=== PATIENT | male | born 1990 | race Caucasian/White ===

== ENCOUNTER 2018-06-16 06:30 | Observation (INO) | payer MEDICAID, OTHER ==
[~2018-06-16] VITALS: Ht 165.1 cm; Wt 81.1 kg
--- NOTE | 2018-06-16 06:46 | NUR ---
FIRST CONTACT WITH PT: Pt ambulates to room from triage with steady gait and balance. NADN. Pt states, "I just got out of halfway and started drinking hard the last two days. I have pain here (points to epigastric area). I have been drinking water and eating. I ate some burritos and it started feeling worse." Pt changing into gown at this time.
[2018-06-16] MEDS ORDERED: MAALOX/HYOSCYAMINE/LIDOCAINE 45 ML BTL PO ONE (07:00)
[2018-06-16] MEDS ORDERED: FAMOTIDINE 20 MG/2 ML IVP ONE (07:00)
[2018-06-16] MEDS ORDERED: PROMETHAZINE 25 MG/ML, 1ML IM ONE (07:00)
[2018-06-16] MEDS ORDERED: LORazepam 2 MG/ML, 1ML IVPush ONE (07:00)
[2018-06-16] MEDS ORDERED: SODIUM CHLORIDE FLUSH 10ML SYR IVF ONE (07:00)
[2018-06-16] MEDS ORDERED: ONDANSETRON 2MG/ML, 2ML IVPush ONE (07:00)
--- NOTE | 2018-06-16 07:09 | NUR ---
Pt transported on gurney to imaging.
[2018-06-16 07:13] LABS: BASOPHILS # (AUTO) 0.05 x10^3/uL (0-0.1); BASOPHILS % (AUTO) 1 % (0-1); EOSINOPHILS # (AUTO) 0.17 x10^3/uL (0-0.4); EOSINOPHILS % (AUTO) 2 % (1-7); LYMPHOCYTES % (AUTO) 35 % (22-44); MD NO; MEAN CORPUSCULAR HEMOGLOBIN 30.7 pg (27.5-34.5); MEAN CORPUSCULAR HGB CONC 33.6 g/dL (33.2-36.2); MEAN CORPUSCULAR VOLUME 91.3 fL (81-97); MEAN PLATELET VOLUME 7.8 fL (7.4-10.4); MONOCYTES # (AUTO) 0.83 x10^3/uL (0.2-0.8); MONOCYTES % (AUTO) 8 % (2-9); NEUTROPHILS # (AUTO) 5.42 x10^3/uL (1.8-6.8); NEUTROPHILS % (AUTO) 54 % (42-75); PLATELET COUNT 412 x10^3/uL (130-400); RED BLOOD COUNT 5.14 x10^6/uL (4.38-5.82); RED CELL DISTRIBUTION WIDTH 13.1 % (9.4-14.8)
[2018-06-16 07:21] LABS: ALANINE AMINOTRANSFERASE 41 U/L (12-78); ALBUMIN 3.9 g/dL (3.4-5.0); ANION GAP 11 mmol/L (5-15); CALCIUM 9.1 mg/dL (8.5-10.1); CHLORIDE 108 mmol/L (98-107)
[2018-06-16 07:24] LABS: ALKALINE PHOSPHATASE 104 U/L (45-117); BILIRUBIN,TOTAL 0.3 mg/dL (0.2-1.0); TOTAL PROTEIN 7.9 g/dL (6.4-8.2)
[2018-06-16] MEDS ORDERED: ONDANSETRON 2MG/ML, 2ML ONE (07:34)
[2018-06-16] MEDS ORDERED: MORPHINE SULFATE 4 MG/ML, 1ML ONE ×2 (07:34→12:32)
[2018-06-16] MEDS ORDERED: PROMETHAZINE 25 MG/ML, 1ML ONE (07:34)
[2018-06-16] MEDS ORDERED: MAALOX/HYOSCYAMINE/LIDOCAINE 45 ML BTL ONE (07:34)
[2018-06-16] MEDS ORDERED: LORazepam 2 MG/ML, 1ML ONE (07:35)
[2018-06-16] MEDS ORDERED: FAMOTIDINE 20 MG/2 ML ONE (07:35)
[2018-06-16] MEDS: MORPHINE SULFATE 4 MG/ML, 1ML IVPush PRN ×4 (07:46→22:06)
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
--- NOTE | 2018-06-16 08:37 | NUR ---
JUAN JOSE CALLED FOR ASSESSMENT, PACKET FAXED
--- NOTE | 2018-06-16 08:54 | NUR ---
LABOR OPERATOR CALLED AND SITTER REQUESTED FOR PATIENT SAFETY.
[2018-06-16 09:01] LABS: SALICYLATE LEVEL < 1.7 mg/dL (2.8-20.0)
[2018-06-16 09:02] LABS: ACETAMINOPHEN < 2 mcg/mL (10-30)
--- NOTE | 2018-06-16 09:07 | NUR ---
SULMA FROM [facility] CALLED, WILL BE HERE NO LATER THAN 1100 AFTER [facility] CONSULTS
--- NOTE | 2018-06-16 10:18 | NUR ---
LATE NOTE ENTRY FOR 0900: Provided pt urinal for UA pt aware of need of urine.
--- NOTE | 2018-06-16 11:00 | NUR ---
Yaneth from [facility] spoke to ED RN And ED MD about plan of care.
--- NOTE | 2018-06-16 11:12 | NUR ---
SULMA ASSESSED PATIENT, WORKING WITH [facility] TO HAVE PATIENT TRANSFERRED TO [facility] WITHIN THE NEXT COUPLE OF HOURS
--- NOTE | 2018-06-16 12:49 | NUR ---
LUNCH RN: PT COMPLETELY UNDRESSED, BLANKET PROVIDED FOR COMFORT, 3 BAGS OF BELONGINGS TO LOCKER ALL LABLED APPROPRAITELY. PT FINISHED DIET TRAY COMPLETELY. PT REPORTING 6/10 PAIN, SECOND DOSE MORPHINE GIVEN. URINE SAMPLE COLLECTED AND WALKED TO LAB FOR DOA. PT CALM AND COOPERATIVE AT THIS TIME. SITTER AT BEDSIDE FOR CONTINOUS MONITORING.
[2018-06-16 13:02] LABS: AMPHETAMINE SCREEN, URINE Negative (Negative); BARBITURATE SCREEN, URINE Negative (Negative); BENZODIAZEPINE SCREEN, URINE Negative (Negative); CANNABINOID SCREEN, URINE Negative (Negative); COCAINE SCREEN, URINE Negative (Negative); METHADONE SCREEN, URINE Negative (Negative); OPIATE SCREEN, URINE Positive (Negative)
--- NOTE | 2018-06-16 13:10 | NUR ---
ASSUMED CARE. PT REMAINS IN ROOM. EQUAL CHEST RISE AND GOOD CAP REFILL. PT TO MOVE TO SAFETY ROOM AT THIS TIME.
--- NOTE | 2018-06-16 13:28 | NUR ---
LPT MOVED TO ROOM 40. ROOM SECURED. SITTER IN PLACE. ASSUMING CARE OF PT AT THIS TIME. NADN. RESP EVEN AND UNLABORED. POC DISCUSSED WITH PT.
[2018-06-16] MEDS ORDERED: POLYETHYLENE GLYCOL 17 GM PACKET PO PRN (13:30)
[2018-06-16] MEDS ORDERED: LABETALOL 5MG/ML, 20ML IVPush PRN (13:30)
[2018-06-16] MEDS ORDERED: ONDANSETRON 2MG/ML, 2ML IVPush PRN (13:30)
[2018-06-16] MEDS ORDERED: ONDANSETRON ODT 4 MG PO PRN (13:30)
[2018-06-16 13:55] LABS: FREE T4 (FREE THYROXINE) 0.92 ng/dL (0.76-1.46)
[2018-06-16] MEDS ORDERED: PANTOPRAZOLE 40 MG IV ONE (14:58)
[2018-06-16] MEDS ORDERED: THIAMINE 100MG TABLET ONE (14:58)
[2018-06-16] MEDS: PANTOPRAZOLE 40 MG IV IVPush SCH ×2 (15:00→20:31)
[2018-06-16] MEDS: THIAMINE 100MG TABLET PO SCH (15:00)
[2018-06-16] MEDS: ENOXAPARIN 40 MG/0.4 ML SQ SCH (15:00)
--- NOTE | 2018-06-16 15:13 | NUR ---
REPORT TO SURI LOVE.
[2018-06-16 15:30] VITALS: BP 127/81
[2018-06-16] MEDS ORDERED: LISI-170 PO (15:43)
[2018-06-16] MEDS: SODIUM CHLORIDE 0.9% 1,000 ML IV SCH ×2 (15:54→22:07)
[2018-06-16] MEDS: FOLIC ACID 1 MG TABLET PO SCH (15:54)
[2018-06-16] MEDS ORDERED: POTASSIUM CHLORIDE 20 MEQ TAB.ER.PRT PO ONE (17:00)
[2018-06-16 20:00] VITALS: BP 145/80
[2018-06-16] MEDS: HYDROcodone/APAP 5/325 TABLET PO PRN (20:30)
[2018-06-17 02:00] VITALS: BP 121/77
[2018-06-17] MEDS: MORPHINE SULFATE 4 MG/ML, 1ML IVPush PRN ×2 (02:01→06:17)
[2018-06-17] MEDS: HYDROcodone/APAP 5/325 TABLET PO PRN ×2 (04:36→13:07)
[2018-06-17 04:57] LABS: BASOPHILS # (AUTO) 0.06 x10^3/uL (0-0.1); BASOPHILS % (AUTO) 1 % (0-1); EOSINOPHILS % (AUTO) 2 % (1-7); LYMPHOCYTES # (AUTO) 3.66 x10^3/uL (1-3.4); LYMPHOCYTES % (AUTO) 43 % (22-44); MD NO; MEAN CORPUSCULAR HEMOGLOBIN 31.4 pg (27.5-34.5); MEAN CORPUSCULAR HGB CONC 34.3 g/dL (33.2-36.2); MEAN CORPUSCULAR VOLUME 91.7 fL (81-97); MEAN PLATELET VOLUME 7.9 fL (7.4-10.4); MONOCYTES # (AUTO) 0.85 x10^3/uL (0.2-0.8); MONOCYTES % (AUTO) 10 % (2-9); NEUTROPHILS # (AUTO) 3.71 x10^3/uL (1.8-6.8); NEUTROPHILS % (AUTO) 44 % (42-75); PLATELET COUNT 315 x10^3/uL (130-400); RED BLOOD COUNT 4.32 x10^6/uL (4.38-5.82); RED CELL DISTRIBUTION WIDTH 13.1 % (9.4-14.8)
[2018-06-17 05:00] LABS: CHLORIDE 110 mmol/L (98-107)
[2018-06-17 05:16] LABS: ALANINE AMINOTRANSFERASE 31 U/L (12-78); ALBUMIN 3.1 g/dL (3.4-5.0); ALKALINE PHOSPHATASE 96 U/L (45-117); ANION GAP 6 mmol/L (5-15); BILIRUBIN,TOTAL 0.9 mg/dL (0.2-1.0); CALCIUM 8.3 mg/dL (8.5-10.1); TOTAL PROTEIN 6.5 g/dL (6.4-8.2)
[2018-06-17] MEDS: FOLIC ACID 1 MG TABLET PO SCH (07:37)
[2018-06-17] MEDS: THIAMINE 100MG TABLET PO SCH (07:37)
[2018-06-17] MEDS: PANTOPRAZOLE 40 MG IV IVPush SCH ×2 (07:37→20:38)
[2018-06-17] MEDS: SENNA/DOCUSATE TABLET PO SCH (07:38)
[2018-06-17] MEDS: SODIUM CHLORIDE 0.9% 1,000 ML IV SCH ×2 (07:42→15:48)
[2018-06-17 08:24] VITALS: BP 111/75
[2018-06-17] MEDS ORDERED: LORazepam 0.5MG TABLET PO PRN (08:30)
[2018-06-17] MEDS ORDERED: LORazepam 1MG TABLET PO PRN ×3 (08:30)
[2018-06-17] MEDS ORDERED: MAALOX/HYOSCYAMINE/LIDOCAINE 45 ML BTL PO ONE (09:30)
[2018-06-17] MEDS: SUCRALFATE 1 GM/10 ML UDC PO SCH ×3 (10:52→20:38)
[2018-06-17 13:24] VITALS: BP 125/77
[2018-06-17] MEDS: ENOXAPARIN 40 MG/0.4 ML SQ SCH (15:47)
[2018-06-17 20:00] VITALS: BP 121/80
[2018-06-17] MEDS: LORazepam 1MG TABLET PO PRN (20:38)
[2018-06-17 23:00] VITALS: BP 109/65
[2018-06-18] MEDS: SODIUM CHLORIDE 0.9% 1,000 ML IV SCH ×2 (00:38→08:11)
[2018-06-18 02:00] VITALS: BP 121/77
[2018-06-18 04:48] LABS: BASOPHILS # (AUTO) 0.06 x10^3/uL (0-0.1); BASOPHILS % (AUTO) 1 % (0-1); EOSINOPHILS # (AUTO) 0.24 x10^3/uL (0-0.4); EOSINOPHILS % (AUTO) 3 % (1-7); LYMPHOCYTES # (AUTO) 2.86 x10^3/uL (1-3.4); LYMPHOCYTES % (AUTO) 39 % (22-44); MD NO; MEAN CORPUSCULAR HEMOGLOBIN 31.2 pg (27.5-34.5); MEAN CORPUSCULAR HGB CONC 33.7 g/dL (33.2-36.2); MEAN CORPUSCULAR VOLUME 92.4 fL (81-97); MEAN PLATELET VOLUME 8.1 fL (7.4-10.4); MONOCYTES # (AUTO) 0.71 x10^3/uL (0.2-0.8); MONOCYTES % (AUTO) 10 % (2-9); NEUTROPHILS # (AUTO) 3.45 x10^3/uL (1.8-6.8); NEUTROPHILS % (AUTO) 47 % (42-75); PLATELET COUNT 315 x10^3/uL (130-400); RED BLOOD COUNT 4.57 x10^6/uL (4.38-5.82); RED CELL DISTRIBUTION WIDTH 12.7 % (9.4-14.8)
[2018-06-18 04:49] LABS: ALBUMIN 3.2 g/dL (3.4-5.0); ANION GAP 7 mmol/L (5-15); CALCIUM 8.9 mg/dL (8.5-10.1); CHLORIDE 106 mmol/L (98-107)
[2018-06-18 06:30] VITALS: BP 129/82
[2018-06-18] MEDS: SUCRALFATE 1 GM/10 ML UDC PO SCH ×4 (08:10→20:09)
[2018-06-18] MEDS: FOLIC ACID 1 MG TABLET PO SCH (08:11)
[2018-06-18] MEDS: SENNA/DOCUSATE TABLET PO SCH (08:11)
[2018-06-18] MEDS: THIAMINE 100MG TABLET PO SCH (08:11)
[2018-06-18] MEDS: PANTOPRAZOLE 40 MG IV IVPush SCH (08:11)
[2018-06-18] MEDS: HYDROcodone/APAP 5/325 TABLET PO PRN (08:25)
[2018-06-18 12:04] VITALS: BP 128/82
[2018-06-18] MEDS: ENOXAPARIN 40 MG/0.4 ML SQ SCH (15:00)
[2018-06-18 19:25] VITALS: BP 138/89
[2018-06-18] MEDS: PANTOPRAZOLE 20MG TABLET PO SCH (20:09)
[2018-06-18] MEDS: LORazepam 1MG TABLET PO PRN (23:47)
[2018-06-19 07:55] VITALS: BP 127/86
[2018-06-19] MEDS: SUCRALFATE 1 GM/10 ML UDC PO SCH ×4 (08:08→20:08)
[2018-06-19] MEDS: SENNA/DOCUSATE TABLET PO SCH (08:09)
[2018-06-19] MEDS: THIAMINE 100MG TABLET PO SCH (08:09)
[2018-06-19] MEDS: PANTOPRAZOLE 20MG TABLET PO SCH ×2 (08:09→20:08)
[2018-06-19] MEDS: FOLIC ACID 1 MG TABLET PO SCH (08:09)
[2018-06-19] MEDS: ENOXAPARIN 40 MG/0.4 ML SQ SCH (15:00)
[2018-06-19 19:05] VITALS: BP 105/71
[2018-06-20] MEDS: LORazepam 1MG TABLET PO PRN ×2 (00:13→20:20)
[2018-06-20] MEDS: SUCRALFATE 1 GM/10 ML UDC PO SCH ×4 (07:49→20:20)
[2018-06-20] MEDS: PANTOPRAZOLE 20MG TABLET PO SCH ×2 (07:49→20:20)
[2018-06-20 08:00] VITALS: BP 123/84
[2018-06-20] MEDS: THIAMINE 100MG TABLET PO SCH (08:27)
[2018-06-20] MEDS: SENNA/DOCUSATE TABLET PO SCH (08:27)
[2018-06-20] MEDS: FOLIC ACID 1 MG TABLET PO SCH (08:27)
[2018-06-20] MEDS: ENOXAPARIN 40 MG/0.4 ML SQ SCH (15:00)
[2018-06-20 19:16] VITALS: BP 109/70
[2018-06-21] MEDS: PANTOPRAZOLE 20MG TABLET PO SCH ×2 (06:23→21:00)
[2018-06-21 07:00] VITALS: BP 120/72
[2018-06-21] MEDS: THIAMINE 100MG TABLET PO SCH (07:46)
[2018-06-21] MEDS: FOLIC ACID 1 MG TABLET PO SCH (07:46)
[2018-06-21] MEDS: SUCRALFATE 1 GM/10 ML UDC PO SCH ×4 (07:46→20:18)
[2018-06-21] MEDS: SENNA/DOCUSATE TABLET PO SCH (07:51)
[2018-06-21] MEDS ORDERED: TRAZODONE 50MG TABLET ONE (10:40)
[2018-06-21] MEDS ORDERED: TRAZODONE 50MG TABLET PO ONE (11:00)
[2018-06-21] MEDS: ENOXAPARIN 40 MG/0.4 ML SQ SCH (15:29)
[2018-06-21 19:25] VITALS: BP 128/85
[2018-06-22] MEDS: LORazepam 1MG TABLET PO PRN (05:36)
[2018-06-22] MEDS: PANTOPRAZOLE 20MG TABLET PO SCH ×2 (05:36→21:16)
[2018-06-22 07:20] VITALS: BP 126/84
[2018-06-22] MEDS: SUCRALFATE 1 GM/10 ML UDC PO SCH ×4 (07:37→21:16)
[2018-06-22] MEDS: FOLIC ACID 1 MG TABLET PO SCH (07:39)
[2018-06-22] MEDS: THIAMINE 100MG TABLET PO SCH (07:40)
[2018-06-22] MEDS: SENNA/DOCUSATE TABLET PO SCH (07:40)
[2018-06-22] MEDS: ENOXAPARIN 40 MG/0.4 ML SQ SCH (15:00)
[2018-06-22] MEDS: TRAZODONE 100MG TABLET PO PRN (21:16)
[2018-06-22 21:54] VITALS: BP 124/85
[2018-06-23] MEDS: PANTOPRAZOLE 20MG TABLET PO SCH ×2 (05:29→21:21)
[2018-06-23] MEDS: FOLIC ACID 1 MG TABLET PO SCH (07:58)
[2018-06-23] MEDS: SUCRALFATE 1 GM/10 ML UDC PO SCH ×4 (07:58→21:20)
[2018-06-23] MEDS: THIAMINE 100MG TABLET PO SCH (07:59)
[2018-06-23] MEDS: SENNA/DOCUSATE TABLET PO SCH (07:59)
[2018-06-23] MEDS: SERTRALINE 50MG TABLET PO SCH (07:59)
[2018-06-23 08:00] VITALS: BP 119/76
[2018-06-23] MEDS: ENOXAPARIN 40 MG/0.4 ML SQ SCH (16:57)
[2018-06-23 19:38] VITALS: BP 126/83
[2018-06-24] MEDS: PANTOPRAZOLE 20MG TABLET PO SCH ×2 (05:52→20:24)
[2018-06-24] MEDS: SUCRALFATE 1 GM/10 ML UDC PO SCH ×4 (06:09→20:24)
[2018-06-24 07:35] VITALS: BP 130/88
[2018-06-24] MEDS: FOLIC ACID 1 MG TABLET PO SCH (08:09)
[2018-06-24] MEDS: SENNA/DOCUSATE TABLET PO SCH (08:09)
[2018-06-24] MEDS: THIAMINE 100MG TABLET PO SCH (08:09)
[2018-06-24] MEDS: SERTRALINE 50MG TABLET PO SCH (08:09)
[2018-06-24] MEDS: ENOXAPARIN 40 MG/0.4 ML SQ SCH (15:00)
[2018-06-24 19:26] VITALS: BP 136/87
[2018-06-25] MEDS: SUCRALFATE 1 GM/10 ML UDC PO SCH ×4 (07:43→20:13)
[2018-06-25] MEDS: FOLIC ACID 1 MG TABLET PO SCH (07:52)
[2018-06-25] MEDS: SERTRALINE 50MG TABLET PO SCH (07:52)
[2018-06-25] MEDS: PANTOPRAZOLE 20MG TABLET PO SCH ×2 (07:52→20:13)
[2018-06-25] MEDS: THIAMINE 100MG TABLET PO SCH (07:53)
[2018-06-25 08:00] VITALS: BP 124/86
[2018-06-25] MEDS: SENNA/DOCUSATE TABLET PO SCH (09:00)
[2018-06-25] MEDS: ENOXAPARIN 40 MG/0.4 ML SQ SCH (15:00)
[2018-06-25 20:00] VITALS: BP 135/89
[2018-06-25] MEDS: TRAZODONE 100MG TABLET PO PRN (22:34)
[2018-06-26] MEDS: PANTOPRAZOLE 20MG TABLET PO SCH ×2 (06:00→22:04)
[2018-06-26] MEDS: SUCRALFATE 1 GM/10 ML UDC PO SCH ×4 (07:00→22:03)
[2018-06-26 07:51] VITALS: BP 125/80
[2018-06-26] MEDS: THIAMINE 100MG TABLET PO SCH (08:17)
[2018-06-26] MEDS: FOLIC ACID 1 MG TABLET PO SCH (08:17)
[2018-06-26] MEDS: SERTRALINE 50MG TABLET PO SCH (08:18)
[2018-06-26] MEDS: SENNA/DOCUSATE TABLET PO SCH ×2 (08:19→08:24)
[2018-06-26] MEDS: ENOXAPARIN 40 MG/0.4 ML SQ SCH (14:33)
[2018-06-26 19:22] VITALS: BP 124/72
[2018-06-26] MEDS: TRAZODONE 100MG TABLET PO PRN (22:03)
[2018-06-26] MEDS: PRAZOSIN 1 MG CAPSULE PO SCH (22:03)
[2018-06-27] MEDS: PANTOPRAZOLE 20MG TABLET PO SCH ×2 (07:32→22:00)
[2018-06-27] MEDS: SUCRALFATE 1 GM/10 ML UDC PO SCH ×4 (07:32→22:00)
[2018-06-27 08:00] VITALS: BP 126/76
[2018-06-27] MEDS: SERTRALINE 50MG TABLET PO SCH (08:15)
[2018-06-27] MEDS: THIAMINE 100MG TABLET PO SCH (08:15)
[2018-06-27] MEDS: FOLIC ACID 1 MG TABLET PO SCH (08:16)
[2018-06-27] MEDS: SENNA/DOCUSATE TABLET PO SCH (08:49)
[2018-06-27] MEDS: ENOXAPARIN 40 MG/0.4 ML SQ SCH (15:00)
[2018-06-27 19:36] VITALS: BP 127/77
[2018-06-27] MEDS: PRAZOSIN 1 MG CAPSULE PO SCH (22:00)
[2018-06-27] MEDS: TRAZODONE 100MG TABLET PO PRN (22:00)
[2018-06-28] MEDS: THIAMINE 100MG TABLET PO SCH (07:54)
[2018-06-28] MEDS: SERTRALINE 50MG TABLET PO SCH (07:54)
[2018-06-28] MEDS: PANTOPRAZOLE 20MG TABLET PO SCH ×2 (07:54→21:31)
[2018-06-28] MEDS: FOLIC ACID 1 MG TABLET PO SCH (07:54)
[2018-06-28] MEDS: SUCRALFATE 1 GM/10 ML UDC PO SCH ×4 (07:54→21:31)
[2018-06-28] MEDS: SENNA/DOCUSATE TABLET PO SCH (07:55)
[2018-06-28 08:27] VITALS: BP 124/82
[2018-06-28] MEDS ORDERED: ORAJEL 7GM TUBE MM PRN (10:30)
[2018-06-28] MEDS: ACETAMINOPHEN 325 MG TABLET PO PRN (11:18)
[2018-06-28] MEDS: ENOXAPARIN 40 MG/0.4 ML SQ SCH (15:00)
[2018-06-28 19:55] VITALS: BP 112/54
[2018-06-28] MEDS: PRAZOSIN 1 MG CAPSULE PO SCH (21:31)
[2018-06-29] MEDS: TRAZODONE 100MG TABLET PO PRN (02:21)
[2018-06-29] MEDS: SERTRALINE 50MG TABLET PO SCH (07:24)
[2018-06-29] MEDS: FOLIC ACID 1 MG TABLET PO SCH (07:24)
[2018-06-29] MEDS: PANTOPRAZOLE 20MG TABLET PO SCH ×2 (07:24→21:15)
[2018-06-29] MEDS: SENNA/DOCUSATE TABLET PO SCH (07:24)
[2018-06-29] MEDS: THIAMINE 100MG TABLET PO SCH (07:24)
[2018-06-29] MEDS: SUCRALFATE 1 GM/10 ML UDC PO SCH ×4 (07:24→21:15)
[2018-06-29 07:56] VITALS: BP 138/91
[2018-06-29] MEDS: ENOXAPARIN 40 MG/0.4 ML SQ SCH (15:00)
[2018-06-29 21:08] VITALS: BP 123/84
[2018-06-29] MEDS: PRAZOSIN 1 MG CAPSULE PO SCH (21:15)
[2018-06-30 07:48] VITALS: BP 142/95
[2018-06-30] MEDS: SUCRALFATE 1 GM/10 ML UDC PO SCH ×4 (07:57→21:53)
[2018-06-30] MEDS: THIAMINE 100MG TABLET PO SCH (07:57)
[2018-06-30] MEDS: SERTRALINE 50MG TABLET PO SCH (07:57)
[2018-06-30] MEDS: PANTOPRAZOLE 20MG TABLET PO SCH ×2 (07:57→21:51)
[2018-06-30] MEDS: FOLIC ACID 1 MG TABLET PO SCH (07:57)
[2018-06-30] MEDS: SENNA/DOCUSATE TABLET PO SCH (08:06)
[2018-06-30] MEDS: ENOXAPARIN 40 MG/0.4 ML SQ SCH (15:21)
[2018-06-30 19:45] VITALS: BP 133/82
[2018-06-30] MEDS: PRAZOSIN 1 MG CAPSULE PO SCH (21:52)
[2018-06-30] MEDS: LORazepam 1MG TABLET PO PRN (23:22)
[2018-07-01] MEDS: PANTOPRAZOLE 20MG TABLET PO SCH ×2 (07:30→20:52)
[2018-07-01] MEDS: SUCRALFATE 1 GM/10 ML UDC PO SCH ×4 (07:36→20:51)
[2018-07-01 07:59] VITALS: BP 129/87
[2018-07-01] MEDS: THIAMINE 100MG TABLET PO SCH (08:16)
[2018-07-01] MEDS: FOLIC ACID 1 MG TABLET PO SCH (08:16)
[2018-07-01] MEDS: SERTRALINE 50MG TABLET PO SCH (08:17)
[2018-07-01] MEDS: SENNA/DOCUSATE TABLET PO SCH (08:17)
[2018-07-01] MEDS: ENOXAPARIN 40 MG/0.4 ML SQ SCH (15:35)
[2018-07-01 19:38] VITALS: BP 130/83
[2018-07-01] MEDS: PRAZOSIN 1 MG CAPSULE PO SCH (20:51)
[2018-07-01] MEDS: ACETAMINOPHEN 325 MG TABLET PO PRN (23:50)
[2018-07-02] MEDS: PANTOPRAZOLE 20MG TABLET PO SCH ×2 (06:00→21:00)
[2018-07-02] MEDS: SUCRALFATE 1 GM/10 ML UDC PO SCH ×4 (07:19→20:24)
[2018-07-02 07:36] VITALS: BP 131/89
[2018-07-02] MEDS: THIAMINE 100MG TABLET PO SCH (08:31)
[2018-07-02] MEDS: FOLIC ACID 1 MG TABLET PO SCH (08:31)
[2018-07-02] MEDS: SERTRALINE 50MG TABLET PO SCH (08:31)
[2018-07-02] MEDS: SENNA/DOCUSATE TABLET PO SCH (08:31)
[2018-07-02] MEDS: ENOXAPARIN 40 MG/0.4 ML SQ SCH (15:00)
[2018-07-02 19:47] VITALS: BP 129/89
[2018-07-02] MEDS: PRAZOSIN 1 MG CAPSULE PO SCH (20:24)
[2018-07-02] MEDS: TRAZODONE 100MG TABLET PO PRN (20:24)
[2018-07-03] MEDS: SUCRALFATE 1 GM/10 ML UDC PO SCH ×2 (07:16→11:19)
[2018-07-03] MEDS: PANTOPRAZOLE 20MG TABLET PO SCH (07:17)
[2018-07-03 07:22] VITALS: BP 119/79
[2018-07-03] MEDS: FOLIC ACID 1 MG TABLET PO SCH (07:49)
[2018-07-03] MEDS: SERTRALINE 50MG TABLET PO SCH (07:49)
[2018-07-03] MEDS: THIAMINE 100MG TABLET PO SCH (07:49)
[2018-07-03] MEDS: SENNA/DOCUSATE TABLET PO SCH (09:00)
== END 2018-07-03 12:20 ==
LOC: ED 08:24 → EDIP 12:07 → 3NW 15:30 → 2N 06-18 13:18
PROVIDERS: ADMIT Internal Medicine; ATTEND Internal Medicine
DX: R10.13 Epigastric pain (principal); R11.2 Nausea with vomiting, unspecified; I10 Essential (primary) hypertension; R45.851 Suicidal ideations; F10.239 Alcohol dependence with withdrawal, unspecified; F11.20 Opioid dependence, uncomplicated; F32.9 Major depressive disorder, single episode, unspecified; K02.9 Dental caries, unspecified; K29.00 Acute gastritis without bleeding; Y90.2 Blood alcohol level of 40-59 mg/100 ml
CPT/HCPCS: 36415; 74022; 80048; 80053; 80307; 80329; 82040; 83690; 83735; 84100; 84439; 84443; 85025; 93005; 96361; 96372; 96374; 96375; 96376; 99284; C9113; G0378; J1650; J2060; J2405; J2550; J3490; J7030; G0480

== ENCOUNTER 2018-09-21 15:55 | Emergency (ER) | payer MEDICAID ==
[~2018-09-21] VITALS: Ht 165.1 cm; Wt 89.0 kg
[~2018-09-21 15:55] MED LIST: ARIP30TA4 PO; GABA300C10 PO; HYDR50TA13 PO; LISI-170 PO; OLAN10TA9 PO; PRAZ2CAP2 PO; SERT50TA28 PO; TRAZ50TA66 PO
--- NOTE | 2018-09-21 16:04 | NUR ---
28 Y/O MALE BIB AMBULANCE WITH C/O CP, UPPER LEFT QUAD PAIN. PER PT "I WAS HERE BEFORE AND THEY TOLD ME IT WAS GALL BLADDER ISSUES OF SOME SORT. THEY ALSO SAID IF THE PAIN GETS WORSE TO COME BACK. SO I DID. I KNOW MY HISTORY ISN'T THE BEST WITH MY DRINKING, BUT I'VE BEEN SOBER FOR 3 MONTHS NOW. IT JUST HURTS." PT IN MILD DISTRESS. 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 NO C/O TRAUMA, V/D, SYNCOPE, SOB.
--- NOTE | 2018-09-21 16:29 | NUR ---
PT BACK FROM IMAGING. US BEDSIDE.
[2018-09-21] MEDS ORDERED: KETOROLAC 30 MG/1 ML IM ONE (16:30)
[2018-09-21] MEDS ORDERED: KETOROLAC 30 MG/1 ML ONE (16:55)
--- NOTE | 2018-09-21 17:02 | NUR ---
PT RESTING ON GURNEY. NO ACUTE DISTRESS NOTED. NO NEEDS REQUESTED AT THIS TIME.
[2018-09-21 17:08] LABS: BASOPHILS # (AUTO) 0.06 x10^3/uL (0-0.1); BASOPHILS % (AUTO) 0 % (0-1); EOSINOPHILS # (AUTO) 0.12 x10^3/uL (0-0.4); EOSINOPHILS % (AUTO) 1 % (1-7); LYMPHOCYTES # (AUTO) 2.62 x10^3/uL (1-3.4); LYMPHOCYTES % (AUTO) 18 % (22-44); MD NO; MEAN CORPUSCULAR HEMOGLOBIN 30.4 pg (27.5-34.5); MEAN CORPUSCULAR HGB CONC 33.9 g/dL (33.2-36.2); MEAN CORPUSCULAR VOLUME 89.6 fL (81-97); MEAN PLATELET VOLUME 7.4 fL (7.4-10.4); MONOCYTES # (AUTO) 0.97 x10^3/uL (0.2-0.8); MONOCYTES % (AUTO) 7 % (2-9); NEUTROPHILS # (AUTO) 10.75 x10^3/uL (1.8-6.8); NEUTROPHILS % (AUTO) 74 % (42-75); PLATELET COUNT 343 x10^3/uL (130-400)
[2018-09-21 17:16] LABS: INTERNATIONAL NORMALIZED RATIO 1.04 (0.93-1.1); PROTHROMBIN TIME 10.9 Seconds (9.6-11.5)
[2018-09-21 17:18] LABS: ALANINE AMINOTRANSFERASE 56 U/L (12-78); ANION GAP 8 mmol/L (5-15); CALCIUM 9.5 mg/dL (8.5-10.1); CHLORIDE 106 mmol/L (98-107)
[2018-09-21 17:21] LABS: ALKALINE PHOSPHATASE 108 U/L (45-117); BILIRUBIN,TOTAL 0.3 mg/dL (0.2-1.0); CREATININE 1.17 mg/dL (0.7-1.3); TOTAL PROTEIN 8.3 g/dL (6.4-8.2)
--- NOTE | 2018-09-21 17:43 | NUR ---
PT RESTING ON [email or web address] PLAYING ON CELL PHONE. NO ACUTE DISTRESS NOTED.
[2018-09-21 17:44] VITALS: BP 123/77
[2018-09-21] MEDS ORDERED: OXYcodone/APAP 5/325MG TABLET ONE (17:50)
[2018-09-21 17:59] LABS: MICROSCOPIC NOT IND
[2018-09-21] MEDS ORDERED: OXYcodone/APAP 5/325MG TABLET PO ONE (18:00)
[2018-09-21 18:05] LABS: CULTURE INDICATED? NO
--- NOTE | 2018-09-21 18:29 | NUR ---
Patient/Caregiver given discharge instructions and they have confirmed that they understand the instructions. Patient ambulatory with steady gait. PT LEFT WITH ALL PERSONAL BELONGINGS.
== END 2018-09-21 18:31 | disposition home or self-care (01) ==
LOC: ED 17:03
DX: K80.70 Calculus of gallbladder and bile duct without cholecystitis without obstruction (principal); Z72.9 Problem related to lifestyle, unspecified; F17.200 Nicotine dependence, unspecified, uncomplicated
CPT/HCPCS: 36415; 74022; 76700; 80053; 81003; 83605; 83690; 85025; 85610; 93005; 96372; 99284; J1885

== ENCOUNTER 2018-10-08 13:06 | Emergency (ER) | payer MEDICAID ==
[~2018-10-08] VITALS: Ht 165.1 cm; Wt 77.3 kg
[2018-10-08 13:25] VITALS: BP 134/85
[2018-10-08] MEDS ORDERED: MAALOX/HYOSCYAMINE/LIDOCAINE 45 ML BTL PO ONE (13:30)
--- NOTE | 2018-10-08 13:30 | NUR ---
PT WAS AGGRESIVE WITH EMS STAFF, PULLING OUT HIS OWN IV AFTER FEATHER EDGER REFUSED TO GIVE PT FENTANYL & RIPPING OFF HIS ED ARM BAND AFTER IT WAS PLACED BY EMS. PT STATES THAT HE DOES NOT WANT TO STAY LONG IN ED AND REQUESTING PA TO JUST CALL HIM WITH LAB RESULTS. PT STATES HE WILL ONLY STAY IN ED IF PA GIVES HIM SOMETHING FOR PAIN. PT REPORTING DARK STOOL, REFUSING CAROLIN DESPITE THOROUGH EXPLINATION OF RISK/BENEFIT.
[2018-10-08] MEDS ORDERED: MAALOX/HYOSCYAMINE/LIDOCAINE 45 ML BTL ONE (13:33)
[2018-10-08 13:47] LABS: BASOPHILS # (AUTO) 0.05 x10^3/uL (0-0.1); BASOPHILS % (AUTO) 1 % (0-1); EOSINOPHILS # (AUTO) 0.06 x10^3/uL (0-0.4); EOSINOPHILS % (AUTO) 1 % (1-7); LYMPHOCYTES # (AUTO) 1.58 x10^3/uL (1-3.4); LYMPHOCYTES % (AUTO) 22 % (22-44); MD NO; MEAN CORPUSCULAR HGB CONC 33.6 g/dL (33.2-36.2); MEAN CORPUSCULAR VOLUME 89.2 fL (81-97); MEAN PLATELET VOLUME 7.5 fL (7.4-10.4); MONOCYTES # (AUTO) 0.49 x10^3/uL (0.2-0.8); MONOCYTES % (AUTO) 7 % (2-9); NEUTROPHILS # (AUTO) 4.88 x10^3/uL (1.8-6.8); NEUTROPHILS % (AUTO) 69 % (42-75); PLATELET COUNT 346 x10^3/uL (130-400); RED BLOOD COUNT 5.42 x10^6/uL (4.38-5.82); RED CELL DISTRIBUTION WIDTH 13.5 % (9.4-14.8)
[2018-10-08 13:57] LABS: ALANINE AMINOTRANSFERASE 40 U/L (12-78); ALBUMIN 4.1 g/dL (3.4-5.0); ANION GAP 11 mmol/L (5-15); CALCIUM 8.7 mg/dL (8.5-10.1); CHLORIDE 109 mmol/L (98-107); CREATININE 1.03 mg/dL (0.7-1.3)
[2018-10-08 14:00] LABS: ALKALINE PHOSPHATASE 88 U/L (45-117); BILIRUBIN,TOTAL 0.2 mg/dL (0.2-1.0)
--- NOTE | 2018-10-08 14:45 | NUR ---
THIS FLOAT RN AT BEDSIDE TO DC PT FOR PRIMARY RN, FREDRICK. PT VERBALIZED UNDERSTANDING TO DC INSTRUCTIONS. AMBULATORY TO [facility] STEADY GAIT. BUS PASS PROVIDED.
== END 2018-10-08 14:48 | disposition home or self-care (01) ==
LOC: ED 13:47
DX: K29.00 Acute gastritis without bleeding (principal); I10 Essential (primary) hypertension
CPT/HCPCS: 36415; 80053; 83690; 85025; 99283

== ENCOUNTER 2018-10-26 16:51 | Emergency (ER) | payer MEDICAID ==
[~2018-10-26] VITALS: Ht 167.6 cm; Wt 88.6 kg
--- NOTE | 2018-10-26 17:31 | NUR ---
PT REPORTS THAT HE HAS GALLSTONES WITH SEVERE PAIN. HE STATES THAT "I HAVE BEEN USING ALCOHOL TO DEAL WITH THE PAIN. I DRINK ABOUT 2 PINTS PER DAY, EVERY DAY FOR ABOUT THE LAST 2 WEEKS". 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 PT REPORTS THAT HE "NEVER FOLLOWED UP ABOUT THE GALLSTONES". PT INDICATES THAT HE WANTS TO STOP DRINKING AND GET HIS LIFE BACK TOGETHER. PT ALREADY HAS A TREATMENT PLAN IN PLACE AND REPORTS THAT HE WILL BE GOING TO INPATIENT TREATMENT ON 10/31/18.
[2018-10-26 17:39] LABS: BASOPHILS # (AUTO) 0.08 x10^3/uL (0-0.1); BASOPHILS % (AUTO) 1 % (0-1); EOSINOPHILS # (AUTO) 0.09 x10^3/uL (0-0.4); EOSINOPHILS % (AUTO) 1 % (1-7); LYMPHOCYTES # (AUTO) 3.92 x10^3/uL (1-3.4); LYMPHOCYTES % (AUTO) 28 % (22-44); MD NO; MEAN CORPUSCULAR HEMOGLOBIN 29.7 pg (27.5-34.5); MEAN CORPUSCULAR HGB CONC 32.7 g/dL (33.2-36.2); MEAN CORPUSCULAR VOLUME 90.9 fL (81-97); MEAN PLATELET VOLUME 7.3 fL (7.4-10.4); MONOCYTES # (AUTO) 0.83 x10^3/uL (0.2-0.8); MONOCYTES % (AUTO) 6 % (2-9); NEUTROPHILS # (AUTO) 9.15 x10^3/uL (1.8-6.8); NEUTROPHILS % (AUTO) 65 % (42-75); PLATELET COUNT 430 x10^3/uL (130-400); RED BLOOD COUNT 5.64 x10^6/uL (4.38-5.82); RED CELL DISTRIBUTION WIDTH 13.8 % (9.4-14.8)
[2018-10-26 17:46] LABS: ALANINE AMINOTRANSFERASE 67 U/L (12-78); ALBUMIN 3.9 g/dL (3.4-5.0); ANION GAP 11 mmol/L (5-15); CHLORIDE 104 mmol/L (98-107)
[2018-10-26 17:49] LABS: ALKALINE PHOSPHATASE 102 U/L (45-117); BILIRUBIN,TOTAL 0.8 mg/dL (0.2-1.0); CREATININE 0.97 mg/dL (0.7-1.3); TOTAL PROTEIN 8.7 g/dL (6.4-8.2)
[2018-10-26] MEDS ORDERED: SODIUM CHLORIDE 0.9% 1,000ML IVBOLUS ONE (18:30)
[2018-10-26] MEDS ORDERED: MAALOX/HYOSCYAMINE/LIDOCAINE 45 ML BTL PO ONE (18:30)
[2018-10-26] MEDS ORDERED: SODIUM CHLORIDE FLUSH 10ML SYR IVF ONE (18:30)
[2018-10-26] MEDS ORDERED: MAALOX/HYOSCYAMINE/LIDOCAINE 45 ML BTL ONE (18:37)
[2018-10-26 18:46] VITALS: BP 119/88
--- NOTE | 2018-10-26 19:15 | NUR ---
ASSUMED CARE FOR THIS PT.
--- NOTE | 2018-10-26 20:02 | NUR ---
PT REQUESTING ATIVAN FOR HIS NERVES. ERP AWARE.
== END 2018-10-26 20:18 | disposition left against medical advice (07) ==
LOC: ED 19:35
DX: K29.20 Alcoholic gastritis without bleeding (principal); K80.20 Calculus of gallbladder without cholecystitis without obstruction; F10.129 Alcohol abuse with intoxication, unspecified; I10 Essential (primary) hypertension; F17.200 Nicotine dependence, unspecified, uncomplicated
CPT/HCPCS: 36415; 76700; 80053; 80307; 83690; 85025; 93005; 96360; 99284; J7030

== ENCOUNTER 2018-12-29 22:49 | Emergency (ER) | payer MEDICAID ==
[~2018-12-29] VITALS: Ht 165.1 cm; Wt 97.9 kg
[2018-12-29 22:52] VITALS: BP 134/88
== END 2018-12-30 00:44 | disposition home or self-care (01) ==
LOC: ED 12-30 00:27
DX: S39.012A Strain of muscle, fascia and tendon of lower back, initial encounter (principal); M25.532 Pain in left wrist; I10 Essential (primary) hypertension; F41.9 Anxiety disorder, unspecified; Y93.89 Activity, other specified; W01.0XXA Fall on same level from slipping, tripping and stumbling without subsequent striking against object, initial encounter; Y92.009 Unspecified place in unspecified non-institutional (private) residence as the place of occurrence of the external cause; Y99.8 Other external cause status
CPT/HCPCS: 72110; 72220; 73110; 96372; 99283; J1885

== ENCOUNTER 2019-04-09 04:06 | Emergency (ER) | payer MEDICAID ==
[~2019-04-09] VITALS: Ht 167.6 cm; Wt 93.5 kg
[~2019-04-09 04:06] MED LIST changes: +ATOR40TA PO; +HYDR25CA PO; +LISI-167 PO; +METH750T87 PO; +SERT100T32 PO; +THIA100T67 PO; +TRAZ-137 PO
[2019-04-09] MEDS ORDERED: ONDANSETRON 2MG/ML, 2ML IVPush ONE (05:00)
[2019-04-09] MEDS ORDERED: SODIUM CHLORIDE FLUSH 10ML SYR IVF ONE (05:00)
[2019-04-09 05:04] LABS: BASOPHILS # (AUTO) 0.07 x10^3/uL (0-0.1); BASOPHILS % (AUTO) 1 % (0-1); EOSINOPHILS # (AUTO) 0.31 x10^3/uL (0-0.4); EOSINOPHILS % (AUTO) 2 % (1-7); LYMPHOCYTES % (AUTO) 23 % (22-44); MD NO; MEAN CORPUSCULAR HEMOGLOBIN 30.2 pg (27.5-34.5); MEAN CORPUSCULAR HGB CONC 32.8 g/dL (33.2-36.2); MEAN CORPUSCULAR VOLUME 92.1 fL (81-97); MEAN PLATELET VOLUME 7.5 fL (7.4-10.4); MONOCYTES # (AUTO) 0.96 x10^3/uL (0.2-0.8); MONOCYTES % (AUTO) 7 % (2-9); NEUTROPHILS # (AUTO) 8.97 x10^3/uL (1.8-6.8); NEUTROPHILS % (AUTO) 67 % (42-75); PLATELET COUNT 444 x10^3/uL (130-400); RED BLOOD COUNT 4.95 x10^6/uL (4.38-5.82); RED CELL DISTRIBUTION WIDTH 14.7 % (9.4-14.8)
[2019-04-09 05:18] LABS: CHLORIDE 110 mmol/L (98-107)
[2019-04-09] MEDS ORDERED: ONDANSETRON 2MG/ML, 2ML ONE (05:24)
[2019-04-09] MEDS ORDERED: MORPHINE SULFATE 4 MG/ML, 1ML ONE ×2 (05:24→06:53)
[2019-04-09 05:30] LABS: ALANINE AMINOTRANSFERASE 74 U/L (12-78); ALBUMIN 3.4 g/dL (3.4-5.0); ALKALINE PHOSPHATASE 140 U/L (45-117); ANION GAP 4 mmol/L (5-15); BILIRUBIN,TOTAL 0.4 mg/dL (0.2-1.0); CREATININE 1.22 mg/dL (0.7-1.3); TOTAL PROTEIN 7.5 g/dL (6.4-8.2)
[2019-04-09] MEDS ORDERED: [UNRECOGNIZED DRUG - OTHER] (05:44)
[2019-04-09] MEDS ORDERED: GABAPENTIN PO (05:44)
[2019-04-09] MEDS: MORPHINE SULFATE 4 MG/ML, 1ML IVPush PRN ×2 (05:51→06:56)
--- NOTE | 2019-04-09 05:53 | NUR ---
BILAt bedrails up. PT MEDICATED PER EMAR. WILL CONTINUE TO MONITOR. PT IN HOSPITAL GOWN. PT ON VITALS MONITORS. CALL LIGHT WITH IN REACH.
[2019-04-09] MEDS ORDERED: OMNIPAQUE 350 MG/ML, 100ML BOTTLE ONE (06:24)
[2019-04-09 06:35] LABS: MICROSCOPIC NOT IND
[2019-04-09 06:38] LABS: CULTURE INDICATED? NO
--- NOTE | 2019-04-09 06:57 | NUR ---
REPORT RECIEVED FROM NOC RN, ASSUMED CARE OF PT. PT MEDICATED PER JUL FOR PAIN, PT STATES PAIN IN ABD 12/02 AT THIS TIME, WILL REASSESS. AWAITING RESULTS OF CT. NAD NOTED, NO OTHER NEEDS AT THIS TIME
[2019-04-09 08:03] VITALS: BP 129/79
--- NOTE | 2019-04-09 08:04 | NUR ---
PT UP FOR RECHECK, PROVIDED WITH BLANKET
--- NOTE | 2019-04-09 08:50 | NUR ---
Patient/Caregiver given discharge instructions and they have confirmed that they understand the instructions. Patient ambulatory with steady gait.
== END 2019-04-09 08:52 | disposition home or self-care (01) ==
LOC: ED 05:08
DX: R10.31 Right lower quadrant pain (principal); R10.32 Left lower quadrant pain; I10 Essential (primary) hypertension
CPT/HCPCS: 36415; 74177; 80053; 81003; 83690; 85025; 96374; 96375; 96376; 99284; J2270; J2405; Q9967

== ENCOUNTER 2019-05-06 07:22 | Emergency (ER) | payer MEDICAID ==
[~2019-05-06] VITALS: Ht 167.6 cm; Wt 98.0 kg
[~2019-05-06 07:22] MED LIST changes: +GABAPENTIN PO; +[UNRECOGNIZED DRUG - OTHER]
[2019-05-06] MEDS ORDERED: SODIUM CHLORIDE 0.9% 1,000 ML IV ONE (07:23)
[2019-05-06] MEDS ORDERED: SODIUM CHLORIDE 0.9% 1,000ML IVBOLUS ONE ×2 (07:30→09:30)
[2019-05-06] MEDS ORDERED: THIAMINE 100 MG in SODIUM CHLORIDE 0.9% 50 ML IVPB ONE (07:30)
[2019-05-06] MEDS ORDERED: SODIUM CHLORIDE FLUSH 10ML SYR IVF ONE (07:30)
--- NOTE | 2019-05-06 07:32 | NUR ---
PT BIBA FROM HOME FOR EPIGASTRIC PAIN STARTED AFTER HEAVY ETOH ABUSE LAST NOC. PT ALSO REPORTS N/V. LAST DRINK AT 0100. IV ESTABLISHED AND 250mL NS, 4mg ZOFRAN AND 200mcg FENTANYL ADMINISTERED MAKER UP FOLDING. PT REPORTS PAIN3/10 UPON ARRIVAL. PT CONNECTED TO Yumber. VSS. NO NEEDS EXPRESSED. DR. GILES TO BS FOR ASSESSMENT. AWAITING ORDERS.
--- NOTE | 2019-05-06 07:38 | NUR ---
REPORT FROM IVAN AYON.
--- NOTE | 2019-05-06 08:25 | NUR ---
PT RETURNED FROM IMAGING AT THIS TIME. REATTACHED TO MONITORS. FLUID BOLUS INITIATED. PT DENIES ANY FURTHER NEEDS OR CONCERNS AT THIS TIME, CALL LIGHT IN REACH.
[2019-05-06 08:33] LABS: BASOPHILS # (AUTO) 0.07 x10^3/uL (0-0.1); BASOPHILS % (AUTO) 1 % (0-1); EOSINOPHILS # (AUTO) 0.14 x10^3/uL (0-0.4); EOSINOPHILS % (AUTO) 1 % (1-7); LYMPHOCYTES # (AUTO) 2.99 x10^3/uL (1-3.4); LYMPHOCYTES % (AUTO) 30 % (22-44); MD NO; MEAN CORPUSCULAR HEMOGLOBIN 30.1 pg (27.5-34.5); MEAN CORPUSCULAR HGB CONC 33.5 g/dL (33.2-36.2); MEAN PLATELET VOLUME 7.2 fL (7.4-10.4); MONOCYTES # (AUTO) 1.25 x10^3/uL (0.2-0.8); MONOCYTES % (AUTO) 12 % (2-9); NEUTROPHILS # (AUTO) 5.61 x10^3/uL (1.8-6.8); NEUTROPHILS % (AUTO) 56 % (42-75); PLATELET COUNT 344 x10^3/uL (130-400); RED BLOOD COUNT 5.18 x10^6/uL (4.38-5.82); RED CELL DISTRIBUTION WIDTH 14.9 % (9.4-14.8)
[2019-05-06 08:37] VITALS: BP 121/72
[2019-05-06 08:42] LABS: INTERNATIONAL NORMALIZED RATIO 1.03 (0.93-1.1); PROTHROMBIN TIME 10.8 Seconds (9.6-11.5)
[2019-05-06 08:45] LABS: ALANINE AMINOTRANSFERASE 85 U/L (12-78); ALBUMIN 3.8 g/dL (3.4-5.0); ANION GAP 9 mmol/L (5-15); CALCIUM 8.2 mg/dL (8.5-10.1); CHLORIDE 107 mmol/L (98-107); CREATININE 1.04 mg/dL (0.7-1.3)
[2019-05-06 08:47] LABS: ALKALINE PHOSPHATASE 109 U/L (45-117); BILIRUBIN,TOTAL 0.3 mg/dL (0.2-1.0)
[2019-05-06 09:41] LABS: MICROSCOPIC AUTO
[2019-05-06] MEDS ORDERED: MAALOX/HYOSCYAMINE/LIDOCAINE 45 ML BTL ONE (09:41)
[2019-05-06 09:52] LABS: CULTURE INDICATED? NO
[2019-05-06] MEDS ORDERED: MAALOX/HYOSCYAMINE/LIDOCAINE 45 ML BTL PO ONE (10:00)
[2019-05-06] MEDS ORDERED: PROMETHAZINE 25 MG/ML, 1ML ONE (10:41)
[2019-05-06] MEDS ORDERED: PROMETHAZINE 25 MG/ML, 1ML IM ONE (11:00)
== END 2019-05-06 12:37 | disposition home or self-care (01) ==
LOC: ED 10:13
DX: K29.20 Alcoholic gastritis without bleeding (principal); F10.10 Alcohol abuse, uncomplicated; F17.200 Nicotine dependence, unspecified, uncomplicated; I10 Essential (primary) hypertension; Y90.0 Blood alcohol level of less than 20 mg/100 ml
CPT/HCPCS: 36415; 74022; 76700; 80053; 81001; 83690; 85025; 85610; 85730; 96361; 96365; 96372; 99284; J2550; J3411; J7030; Q0177

== ENCOUNTER 2019-05-11 10:26 | Emergency (ER) | payer MEDICAID ==
[~2019-05-11] VITALS: Ht 167.6 cm; Wt 98.0 kg
--- NOTE | 2019-05-11 10:37 | NUR ---
BIB [facility] WITH C/O ABD PAIN AND NAUESEA +VOMITING THIS AM AND YESTERDAY. PT WAS HERE IN ER A FEW DAYS AGO DISCHARGED WITH DX OF ETOH GASTRITIS, PT DID NOT FILL MEDS, SMOKED METH AND MARIJUANA AND DRANK UNKNOWN AMOUNT OF ETOH. PT TO BP, CONT PULSE OX.
[2019-05-11] MEDS ORDERED: MORPHINE SULFATE 4 MG/ML, 1ML ONE ×2 (11:16→12:12)
[2019-05-11] MEDS ORDERED: MAALOX/HYOSCYAMINE/LIDOCAINE 45 ML BTL ONE (11:17)
[2019-05-11] MEDS ORDERED: FAMOTIDINE 20 MG/2 ML ONE (11:17)
[2019-05-11] MEDS: MORPHINE SULFATE 4 MG/ML, 1ML IVPush PRN ×2 (11:22→12:14)
--- NOTE | 2019-05-11 11:25 | NUR ---
PT MEDICATED PER MAR, ALL NEEDS MET AT THIS TIME, NAD NOTED
[2019-05-11] MEDS ORDERED: MAALOX/HYOSCYAMINE/LIDOCAINE 45 ML BTL PO ONE (11:30)
[2019-05-11] MEDS ORDERED: SODIUM CHLORIDE FLUSH 10ML SYR IVF ONE (11:30)
[2019-05-11] MEDS ORDERED: FAMOTIDINE 20 MG/2 ML IVPush ONE (11:30)
[2019-05-11 11:58] LABS: BASOPHILS # (AUTO) 0.07 x10^3/uL (0-0.1); BASOPHILS % (AUTO) 1 % (0-1); EOSINOPHILS # (AUTO) 0.06 x10^3/uL (0-0.4); EOSINOPHILS % (AUTO) 1 % (1-7); LYMPHOCYTES # (AUTO) 3.55 x10^3/uL (1-3.4); LYMPHOCYTES % (AUTO) 42 % (22-44); MD NO; MEAN CORPUSCULAR HEMOGLOBIN 29.7 pg (27.5-34.5); MEAN CORPUSCULAR VOLUME 90.1 fL (81-97); MEAN PLATELET VOLUME 7.1 fL (7.4-10.4); MONOCYTES # (AUTO) 0.73 x10^3/uL (0.2-0.8); MONOCYTES % (AUTO) 9 % (2-9); NEUTROPHILS # (AUTO) 4.13 x10^3/uL (1.8-6.8); NEUTROPHILS % (AUTO) 48 % (42-75); PLATELET COUNT 411 x10^3/uL (130-400); RED BLOOD COUNT 5.23 x10^6/uL (4.38-5.82); RED CELL DISTRIBUTION WIDTH 14.7 % (9.4-14.8)
[2019-05-11 12:10] LABS: ALANINE AMINOTRANSFERASE 57 U/L (12-78); ALBUMIN 3.8 g/dL (3.4-5.0); ANION GAP 9 mmol/L (5-15); CALCIUM 8.3 mg/dL (8.5-10.1); CHLORIDE 106 mmol/L (98-107); CREATININE 1.06 mg/dL (0.7-1.3)
[2019-05-11 12:13] LABS: ALKALINE PHOSPHATASE 100 U/L (45-117); BILIRUBIN,TOTAL 0.4 mg/dL (0.2-1.0); TOTAL PROTEIN 7.8 g/dL (6.4-8.2)
--- NOTE | 2019-05-11 12:15 | NUR ---
PT MEDICATED PER MAR FOR CONTINUED C/O PAIN.
[2019-05-11 12:50] VITALS: BP 168/87
== END 2019-05-11 12:52 | disposition home or self-care (01) ==
LOC: ED 12:46
DX: K29.20 Alcoholic gastritis without bleeding (principal); F10.10 Alcohol abuse, uncomplicated; I10 Essential (primary) hypertension; Z87.19 Personal history of other diseases of the digestive system; Z72.9 Problem related to lifestyle, unspecified; Y90.9 Presence of alcohol in blood, level not specified
CPT/HCPCS: 36415; 80053; 83690; 85025; 96374; 96375; 96376; 99283; J2270; J3490

== ENCOUNTER 2019-05-19 04:52 | Emergency (ER) | payer MEDICAID ==
[~2019-05-19] VITALS: Ht 167.6 cm; Wt 93.0 kg
--- NOTE | 2019-05-19 05:10 | NUR ---
PT AMBULATES FROM TRIAGE TO LOBBY WITH STEADY GAIT.
[2019-05-19] MEDS ORDERED: PROMETHAZINE 25 MG/ML, 1ML ONE (05:26)
[2019-05-19] MEDS ORDERED: MAALOX/HYOSCYAMINE/LIDOCAINE 45 ML BTL ONE (05:26)
[2019-05-19] MEDS ORDERED: MAALOX/HYOSCYAMINE/LIDOCAINE 45 ML BTL PO ONE (05:30)
[2019-05-19] MEDS ORDERED: PROMETHAZINE 25 MG/ML, 1ML IM ONE (05:30)
--- NOTE | 2019-05-19 05:30 | NUR ---
PT MEDICATED PER MAR.
[2019-05-19] MEDS ORDERED: FAMOTIDINE 20 MG TABLET ONE (05:48)
[2019-05-19] MEDS ORDERED: FAMOTIDINE 20 MG TABLET PO ONE (06:00)
[2019-05-19 06:04] LABS: BASOPHILS # (AUTO) 0.08 x10^3/uL (0-0.1); BASOPHILS % (AUTO) 1 % (0-1); EOSINOPHILS # (AUTO) 0.09 x10^3/uL (0-0.4); EOSINOPHILS % (AUTO) 2 % (1-7); LYMPHOCYTES # (AUTO) 2.36 x10^3/uL (1-3.4); LYMPHOCYTES % (AUTO) 41 % (22-44); MD NO; MEAN CORPUSCULAR HEMOGLOBIN 30.1 pg (27.5-34.5); MEAN CORPUSCULAR HGB CONC 33.1 g/dL (33.2-36.2); MEAN CORPUSCULAR VOLUME 91.1 fL (81-97); MEAN PLATELET VOLUME 7.2 fL (7.4-10.4); MONOCYTES # (AUTO) 1.07 x10^3/uL (0.2-0.8); MONOCYTES % (AUTO) 19 % (2-9); NEUTROPHILS # (AUTO) 2.13 x10^3/uL (1.8-6.8); NEUTROPHILS % (AUTO) 37 % (42-75); PLATELET COUNT 311 x10^3/uL (130-400); RED BLOOD COUNT 5.05 x10^6/uL (4.38-5.82); RED CELL DISTRIBUTION WIDTH 14.9 % (9.4-14.8)
[2019-05-19 06:10] LABS: ALBUMIN 3.7 g/dL (3.4-5.0); ANION GAP 10 mmol/L (5-15); CHLORIDE 105 mmol/L (98-107)
[2019-05-19 06:13] LABS: ALANINE AMINOTRANSFERASE 69 U/L (12-78); ALKALINE PHOSPHATASE 113 U/L (45-117); BILIRUBIN,TOTAL 0.6 mg/dL (0.2-1.0); CREATININE 0.88 mg/dL (0.7-1.3); TOTAL PROTEIN 7.9 g/dL (6.4-8.2)
--- NOTE | 2019-05-19 06:49 | NUR ---
BEDSIDE REPORT FROM STACEY LOVE, PT UP FOR DC
--- NOTE | 2019-05-19 06:50 | NUR ---
REPORT OF PT TO IVAN PEARSON. ALL QUESTIONS ANSWERED.
[2019-05-19] MEDS ORDERED: SUCRALFATE 1 GM/10 ML UDC PO SCH (07:00)
[2019-05-19 07:03] VITALS: BP 140/75
[2019-05-19] MEDS ORDERED: METOCLOPRAMIDE 5 MG/ML, 2ML ONE (07:06)
[2019-05-19] MEDS ORDERED: SODIUM CHLORIDE 0.9% 1,000ML IVBOLUS ONE (07:30)
[2019-05-19] MEDS ORDERED: METOCLOPRAMIDE 5 MG/ML, 2ML IVPush ONE (07:30)
--- NOTE | 2019-05-19 07:53 | NUR ---
IV STARTED AND PT MEDICATED PER MAR, PT RESTING IN [facility] WITH IVF INFUSING
== END 2019-05-19 08:58 | disposition home or self-care (01) ==
LOC: ED 06:44
DX: K29.20 Alcoholic gastritis without bleeding (principal); F17.200 Nicotine dependence, unspecified, uncomplicated
CPT/HCPCS: 36415; 80053; 83690; 85025; 93005; 96361; 96372; 96374; 99284; J2550; J2765; J7030

== ENCOUNTER 2019-05-19 12:21 | Emergency (ER) | payer MEDICAID ==
[~2019-05-19] VITALS: Ht 167.6 cm; Wt 95.5 kg
[2019-05-19] MEDS ORDERED: FAMOTIDINE 20 MG TABLET PO ONE (12:30)
[2019-05-19] MEDS ORDERED: MAALOX/HYOSCYAMINE/LIDOCAINE 45 ML BTL PO ONE (12:30)
[2019-05-19] MEDS ORDERED: LORazepam 1MG TABLET PO ONE (12:30)
[2019-05-19] MEDS ORDERED: PROMETHAZINE 25 MG/ML, 1ML IM ONE (12:30)
[2019-05-19] MEDS ORDERED: KETOROLAC 30 MG/1 ML IM ONE (12:30)
[2019-05-19 12:32] VITALS: BP 133/94
[2019-05-19] MEDS ORDERED: KETOROLAC 30 MG/1 ML ONE (12:37)
[2019-05-19] MEDS ORDERED: PROMETHAZINE 25 MG/ML, 1ML ONE (12:37)
[2019-05-19] MEDS ORDERED: FAMOTIDINE 20 MG TABLET ONE (12:37)
[2019-05-19] MEDS ORDERED: LORazepam 1MG TABLET ONE (12:38)
[2019-05-19] MEDS ORDERED: MAALOX/HYOSCYAMINE/LIDOCAINE 45 ML BTL ONE (12:39)
--- NOTE | 2019-05-19 13:55 | NUR ---
Patient/Caregiver given discharge instructions and they have confirmed that they understand the instructions. Patient ambulatory with steady gait.
== END 2019-05-19 13:57 | disposition home or self-care (01) ==
LOC: ED 13:20
DX: K29.20 Alcoholic gastritis without bleeding (principal); I10 Essential (primary) hypertension
CPT/HCPCS: 96372; 99284; J1885; J2550

== ENCOUNTER 2019-07-05 00:44 | Inpatient (IN) | payer MEDICAID ==
[~2019-07-05] VITALS: Ht 167.6 cm; Wt 88.7 kg
[~2019-07-05 00:44] MED LIST changes: -HYDR50TA13 PO; +HYDR50TA99 PO; -TRAZ-137 PO; +TRAZ-175 PO
--- NOTE | 2019-07-05 00:52 | NUR ---
Patient BIB [facility] c/o epigastric pain since tonight. Patient states he quit drinking for a few months then a week ago, he started drinking heavily and has been since. Patient c/o N/V and states he had blood in vomitus. Denies diarrhea. Per EMS, patient HR on scene was 150s. EMS established an IV and gave a fluid bolus, decreasing HR to 120s. Patient is in obvious pain. Respirations even and unlabored.
[2019-07-05] MEDS ORDERED: ONDANSETRON 2MG/ML, 2ML ONE (00:58)
[2019-07-05] MEDS ORDERED: MORPHINE SULFATE 4 MG/ML, 1ML ONE ×2 (00:58→01:50)
[2019-07-05] MEDS ORDERED: ONDANSETRON 2MG/ML, 2ML IVPush ONE (01:00)
[2019-07-05] MEDS ORDERED: SODIUM CHLORIDE 0.9% 1,000ML IVBOLUS ONE ×2 (01:00→03:00)
[2019-07-05 01:09] LABS: BASOPHILS # (AUTO) 0.05 x10^3/uL (0-0.1); BASOPHILS % (AUTO) 1 % (0-1); EOSINOPHILS # (AUTO) 0.08 x10^3/uL (0-0.4); EOSINOPHILS % (AUTO) 1 % (1-7); LYMPHOCYTES # (AUTO) 3.63 x10^3/uL (1-3.4); LYMPHOCYTES % (AUTO) 41 % (22-44); MD NO; MEAN CORPUSCULAR HEMOGLOBIN 31.6 pg (27.5-34.5); MEAN CORPUSCULAR HGB CONC 33.9 g/dL (33.2-36.2); MEAN CORPUSCULAR VOLUME 93.1 fL (81-97); MEAN PLATELET VOLUME 7.7 fL (7.4-10.4); MONOCYTES # (AUTO) 0.77 x10^3/uL (0.2-0.8); MONOCYTES % (AUTO) 9 % (2-9); NEUTROPHILS # (AUTO) 4.38 x10^3/uL (1.8-6.8); NEUTROPHILS % (AUTO) 49 % (42-75); PLATELET COUNT 380 x10^3/uL (130-400); RED BLOOD COUNT 4.97 x10^6/uL (4.38-5.82); RED CELL DISTRIBUTION WIDTH 15.3 % (9.4-14.8)
[2019-07-05] MEDS: MORPHINE SULFATE 4 MG/ML, 1ML IVPush PRN ×2 (01:10→01:51)
[2019-07-05 01:18] LABS: ALANINE AMINOTRANSFERASE 136 U/L (12-78); ALBUMIN 3.4 g/dL (3.4-5.0); ANION GAP 12 mmol/L (5-15); CALCIUM 8.5 mg/dL (8.5-10.1); CHLORIDE 108 mmol/L (98-107); CREATININE 1.29 mg/dL (0.7-1.3)
[2019-07-05 01:20] LABS: ALKALINE PHOSPHATASE 104 U/L (45-117); BILIRUBIN,TOTAL 0.2 mg/dL (0.2-1.0); TOTAL PROTEIN 8.4 g/dL (6.4-8.2)
[2019-07-05] MEDS ORDERED: LORazepam 2 MG/ML, 1ML IVPush ONE ×2 (01:30→03:00)
[2019-07-05] MEDS ORDERED: LORazepam 2 MG/ML, 1ML ONE ×2 (01:39→02:54)
[2019-07-05 02:13] LABS: AMPHETAMINE SCREEN, URINE Negative (Negative); BARBITURATE SCREEN, URINE Negative (Negative); BENZODIAZEPINE SCREEN, URINE Negative (Negative); CANNABINOID SCREEN, URINE Negative (Negative); COCAINE SCREEN, URINE Negative (Negative); METHADONE SCREEN, URINE Negative (Negative); OPIATE SCREEN, URINE Negative (Negative)
[2019-07-05 02:19] LABS: MICROSCOPIC INDICATED
[2019-07-05] MEDS ORDERED: PANTOPRAZOLE 40 MG IV IVPush ONE (03:00)
[2019-07-05] MEDS ORDERED: SODIUM CHLORIDE 0.9% 1,000 ML IV ONE (03:02)
[2019-07-05] MEDS ORDERED: PANTOPRAZOLE 40 MG IV ONE (03:02)
--- NOTE | 2019-07-05 03:10 | NUR ---
Patient in CT.
[2019-07-05] MEDS ORDERED: OMNIPAQUE 350 MG/ML, 100ML BOTTLE ONE (03:20)
[2019-07-05] MEDS ORDERED: MORPHINE SULFATE 4 MG/ML, 1ML IVPush PRN (03:30)
[2019-07-05] MEDS ORDERED: ONDANSETRON 2MG/ML, 2ML IVPush PRN ×2 (03:30→04:00)
--- NOTE | 2019-07-05 03:33 | NUR ---
Attempted temperature multiple times; unable to obtain.
--- NOTE | 2019-07-05 03:34 | NUR ---
Report given to Rosalba. Patient to be transferred to room 492.
[2019-07-05 03:50] LABS: CULTURE INDICATED? NO
[2019-07-05] MEDS ORDERED: THIAMINE 200 MG in DEXTROSE 5% 50 ML IVPB ONE (04:00)
[2019-07-05] MEDS ORDERED: SODIUM CHLORIDE 0.9% 1,000 ML IV SCH (04:00)
[2019-07-05] MEDS ORDERED: ACETAMINOPHEN 325 MG TABLET PO PRN (04:00)
[2019-07-05] MEDS ORDERED: LORazepam 2 MG/ML, 1ML IV PRN ×5 (04:00)
[2019-07-05] MEDS ORDERED: FOLIC ACID 5 MG/ML IM ONE (04:00)
[2019-07-05] MEDS ORDERED: LORazepam 1MG TABLET PO PRN ×3 (04:00)
[2019-07-05 04:47] VITALS: BP 138/87
[2019-07-05] MEDS: PANTOPRAZOLE 40 MG IV IVPush SCH ×2 (05:21→16:14)
[2019-07-05] MEDS: DIAZEPAM 10 MG TABLET PO SCH ×4 (05:21→22:03)
[2019-07-05] MEDS: morphine SULFATE 10 MG/ML, 1ML IVPush PRN ×5 (05:23→22:20)
[2019-07-05 06:55] VITALS: BP 135/99
[2019-07-05] MEDS: MULTIVITAMINS/MINERALS TABLET PO SCH (08:31)
[2019-07-05 09:04] LABS: INTERNATIONAL NORMALIZED RATIO 1.01 (0.93-1.1); PROTHROMBIN TIME 10.7 Seconds (9.6-11.5)
[2019-07-05 09:05] LABS: D-DIMER < 0.19 ug/mlFEU (0.00-0.52)
[2019-07-05] MEDS: D5%-0.45NACL+KCL 20MEQ 1,000 ML IV SCH ×2 (09:54→20:45)
[2019-07-05] MEDS: LORazepam 0.5MG TABLET PO PRN ×2 (12:31→16:14)
[2019-07-05 12:33] VITALS: BP 152/91
[2019-07-05 20:38] VITALS: BP 127/83
[2019-07-05] MEDS: LORazepam 1MG TABLET PO PRN (22:03)
[2019-07-06 01:44] VITALS: BP 142/89
[2019-07-06] MEDS: morphine SULFATE 10 MG/ML, 1ML IVPush PRN ×4 (02:51→14:51)
[2019-07-06] MEDS ORDERED: THIAMINE 100 MG in DEXTROSE 5% 50 ML IVPB SCH (04:00)
[2019-07-06] MEDS: PANTOPRAZOLE 40 MG IV IVPush SCH ×2 (04:45→16:00)
[2019-07-06] MEDS: DIAZEPAM 5 MG TABLET PO SCH ×3 (04:45→16:00)
[2019-07-06] MEDS: LORazepam 0.5MG TABLET PO PRN (04:45)
[2019-07-06] MEDS: D5%-0.45NACL+KCL 20MEQ 1,000 ML IV SCH (05:51)
[2019-07-06 06:51] VITALS: BP 131/89
[2019-07-06 06:52] LABS: BASOPHILS # (AUTO) 0.05 x10^3/uL (0-0.1); BASOPHILS % (AUTO) 1 % (0-1); CHLORIDE 103 mmol/L (98-107); EOSINOPHILS # (AUTO) 0.23 x10^3/uL (0-0.4); EOSINOPHILS % (AUTO) 3 % (1-7); LYMPHOCYTES # (AUTO) 2.74 x10^3/uL (1-3.4); LYMPHOCYTES % (AUTO) 34 % (22-44); MD NO; MEAN CORPUSCULAR HEMOGLOBIN 31.5 pg (27.5-34.5); MEAN CORPUSCULAR HGB CONC 33.6 g/dL (33.2-36.2); MEAN CORPUSCULAR VOLUME 93.8 fL (81-97); MEAN PLATELET VOLUME 7.9 fL (7.4-10.4); MONOCYTES # (AUTO) 0.94 x10^3/uL (0.2-0.8); MONOCYTES % (AUTO) 12 % (2-9); NEUTROPHILS # (AUTO) 4.21 x10^3/uL (1.8-6.8); NEUTROPHILS % (AUTO) 52 % (42-75); PLATELET COUNT 258 x10^3/uL (130-400); RED BLOOD COUNT 4.57 x10^6/uL (4.38-5.82); RED CELL DISTRIBUTION WIDTH 15.1 % (9.4-14.8)
[2019-07-06 07:05] LABS: ALANINE AMINOTRANSFERASE 85 U/L (12-78); ALKALINE PHOSPHATASE 94 U/L (45-117); ANION GAP 7 mmol/L (5-15); BILIRUBIN,TOTAL 0.7 mg/dL (0.2-1.0); CALCIUM 8.6 mg/dL (8.5-10.1); CREATININE 0.89 mg/dL (0.7-1.3); TOTAL PROTEIN 7.2 g/dL (6.4-8.2)
[2019-07-06] MEDS: MULTIVITAMINS/MINERALS TABLET PO SCH (07:46)
[2019-07-06] MEDS ORDERED: THIAMINE 100MG TABLET PO SCH (09:00)
[2019-07-06] MEDS: LORazepam 1MG TABLET PO PRN (09:18)
[2019-07-06 12:35] VITALS: BP 122/78
[2019-07-06] MEDS ORDERED: MULT1TAB60 PO (16:27)
[2019-07-06] MEDS ORDERED: OMEP-110 PO (16:27)
[2019-07-06] MEDS ORDERED: FOLI-17 PO (16:27)
[2019-07-06] MEDS ORDERED: THIA100T67 PO (16:27)
== END 2019-07-06 18:20 | disposition home or self-care (01) | DRG 392 ==
LOC: ED 02:02 → EDIP 03:02 → 4EST 04:12
PROVIDERS: ADMIT Family Medicine; ATTEND Family Medicine
DX: K29.20 Alcoholic gastritis without bleeding (principal); F10.239 Alcohol dependence with withdrawal, unspecified; F17.210 Nicotine dependence, cigarettes, uncomplicated; F41.9 Anxiety disorder, unspecified; I10 Essential (primary) hypertension; K40.90 Unilateral inguinal hernia, without obstruction or gangrene, not specified as recurrent; K76.0 Fatty (change of) liver, not elsewhere classified; G89.29 Other chronic pain; Z63.8 Other specified problems related to primary support group; Z88.8 Allergy status to other drugs, medicaments and biological substances; Z79.899 Other long term (current) drug therapy; Y90.9 Presence of alcohol in blood, level not specified
CPT/HCPCS: 36415; 71045; 74177; 80053; 80307; 81001; 82962; 83690; 83735; 84100; 85014; 85018; 85025; 85379; 85610; 93005; 96361; 96374; 96375; 96376; G0378; J2405; J3411; Q9967; C9113; J2060; J2270; J3480; J7030

== ENCOUNTER 2019-07-25 12:23 | Emergency (ER) | payer MEDICAID ==
[~2019-07-25] VITALS: Ht 165.1 cm; Wt 84.8 kg
[~2019-07-25 12:23] MED LIST changes: +FOLI-17 PO; +MULT1TAB60 PO; +OMEP-110 PO
[2019-07-25 12:35] VITALS: BP 133/86
[2019-07-25 12:46] LABS: BASOPHILS # (AUTO) 0.05 x10^3/uL (0-0.1); BASOPHILS % (AUTO) 1 % (0-1); EOSINOPHILS # (AUTO) 0.11 x10^3/uL (0-0.4); EOSINOPHILS % (AUTO) 1 % (1-7); LYMPHOCYTES # (AUTO) 3.32 x10^3/uL (1-3.4); LYMPHOCYTES % (AUTO) 40 % (22-44); MD NO; MEAN CORPUSCULAR HEMOGLOBIN 31.7 pg (27.5-34.5); MEAN CORPUSCULAR HGB CONC 33.1 g/dL (33.2-36.2); MEAN CORPUSCULAR VOLUME 95.8 fL (81-97); MEAN PLATELET VOLUME 7.3 fL (7.4-10.4); MONOCYTES # (AUTO) 0.56 x10^3/uL (0.2-0.8); MONOCYTES % (AUTO) 7 % (2-9); NEUTROPHILS # (AUTO) 4.32 x10^3/uL (1.8-6.8); NEUTROPHILS % (AUTO) 52 % (42-75); PLATELET COUNT 403 x10^3/uL (130-400); RED BLOOD COUNT 5.01 x10^6/uL (4.38-5.82); RED CELL DISTRIBUTION WIDTH 14.8 % (9.4-14.8)
[2019-07-25 12:55] LABS: ALANINE AMINOTRANSFERASE 86 U/L (12-78); ALBUMIN 3.8 g/dL (3.4-5.0); ANION GAP 12 mmol/L (5-15); CALCIUM 8.8 mg/dL (8.5-10.1); CHLORIDE 106 mmol/L (98-107); CREATININE 0.84 mg/dL (0.7-1.3)
[2019-07-25 12:57] LABS: ALKALINE PHOSPHATASE 91 U/L (45-117); BILIRUBIN,TOTAL 0.3 mg/dL (0.2-1.0); TOTAL PROTEIN 8.4 g/dL (6.4-8.2)
[2019-07-25] MEDS ORDERED: SODIUM CHLORIDE 0.9% 1,000ML IVBOLUS ONE (13:00)
--- NOTE | 2019-07-25 13:32 | NUR ---
pt aggitated, continually moving to rip out iv and having to be reminded why it's in place, he communicates understanding. pt complied when asked for bedside urine. went to imaging. back in room, sitting at edge of bed, phone in hand. tech remains outside room with visual on pt for patient and staff safety. pt shows no signs of distress, pt refuses vital signs.
[2019-07-25 14:06] LABS: MICROSCOPIC INDICATED
[2019-07-25 14:16] LABS: CULTURE INDICATED? NO
--- NOTE | 2019-07-25 14:44 | NUR ---
pt laying in bed, eyes closed, respirations even and unlabored, no signs of distress.
--- NOTE | 2019-07-25 15:00 | NUR ---
PT AMBULATED TO RESTROOM AND THEN TO DISCHARGE DESK, STEADY GAIT.
== END 2019-07-25 15:13 | disposition home or self-care (01) ==
LOC: ED 13:05
DX: K29.20 Alcoholic gastritis without bleeding (principal); F10.220 Alcohol dependence with intoxication, uncomplicated; I10 Essential (primary) hypertension; R10.9 Unspecified abdominal pain; R55 Syncope and collapse; Y90.0 Blood alcohol level of less than 20 mg/100 ml
CPT/HCPCS: 36415; 74021; 80053; 80307; 81001; 83690; 85025; 99284; J7030

== ENCOUNTER 2019-07-26 02:41 | Emergency (ER) | payer MEDICAID ==
[2019-07-26] MEDS ORDERED: LORazepam 2 MG/ML, 1ML ONE ×2 (02:56→09:51)
[2019-07-26] MEDS ORDERED: MAGNESIUM SULFATE 1 GM, THIAMINE 100 MG, FOLIC ACID 1 MG, MVI ADULT 10 ML in SODIUM CHL... IV ONE (03:00)
[2019-07-26] MEDS ORDERED: ONDANSETRON 2MG/ML, 2ML IVPush ONE (03:00)
[2019-07-26] MEDS: LORazepam 2 MG/ML, 1ML IVPush PRN ×2 (03:00→09:53)
[2019-07-26] MEDS ORDERED: SODIUM CHLORIDE 0.9% 1,000ML IVBOLUS ONE (03:00)
--- NOTE | 2019-07-26 03:00 | NUR ---
29 Y/O MALE BIB [facility] FOR ETOH WITHDRAWAL. PT STATES HIS LAST DRINK WAS AT 0900. HE HAS SINCE BEEN TO [facility] AND HERE EARLIER IN THE DAY FOR ABD PAIN. HE ADMITS TO BEING UNCOOPERATIVE AND AGITATED WHILE HERE EARLIER. STATES HE DRINKS "A LOT" DAILY. HAS BEEN HOSPITALIZED FOR ETOH WITHDRAWAL IN THE PAST. ALL MONITORING EQUIPMENT APPLIED. SINUS TACH ON THE MONITOR, HYPERTENSIVE. PT TREMULOUS. +NAUSEA. REPORTS A HX OF HTN HOWEVER IS NOT COMPLIANT WITH MEDS. IV ESTABLISHED BY EMS, NS ADMINISTERED. PT MEDICATED PER EMAR FOR WITHDRAWAL. [facility] CALL LIGHT WITHIN REACH.
[2019-07-26 03:16] LABS: BASOPHILS # (AUTO) 0.07 x10^3/uL (0-0.1); BASOPHILS % (AUTO) 1 % (0-1); EOSINOPHILS # (AUTO) 0.07 x10^3/uL (0-0.4); EOSINOPHILS % (AUTO) 1 % (1-7); LYMPHOCYTES # (AUTO) 2.02 x10^3/uL (1-3.4); LYMPHOCYTES % (AUTO) 25 % (22-44); MD NO; MEAN CORPUSCULAR HEMOGLOBIN 32.1 pg (27.5-34.5); MEAN CORPUSCULAR HGB CONC 33.9 g/dL (33.2-36.2); MEAN CORPUSCULAR VOLUME 94.7 fL (81-97); MEAN PLATELET VOLUME 7.6 fL (7.4-10.4); MONOCYTES # (AUTO) 0.97 x10^3/uL (0.2-0.8); MONOCYTES % (AUTO) 12 % (2-9); NEUTROPHILS # (AUTO) 5.02 x10^3/uL (1.8-6.8); NEUTROPHILS % (AUTO) 62 % (42-75); PLATELET COUNT 335 x10^3/uL (130-400); RED BLOOD COUNT 4.57 x10^6/uL (4.38-5.82); RED CELL DISTRIBUTION WIDTH 14.9 % (9.4-14.8)
[2019-07-26 03:25] LABS: ALANINE AMINOTRANSFERASE 77 U/L (12-78); ALBUMIN 3.4 g/dL (3.4-5.0); ANION GAP 8 mmol/L (5-15); CALCIUM 8.3 mg/dL (8.5-10.1); CHLORIDE 105 mmol/L (98-107); CREATININE 0.79 mg/dL (0.7-1.3)
[2019-07-26 03:27] LABS: ALKALINE PHOSPHATASE 85 U/L (45-117); BILIRUBIN,TOTAL 0.2 mg/dL (0.2-1.0); TOTAL PROTEIN 7.6 g/dL (6.4-8.2)
--- NOTE | 2019-07-26 04:13 | NUR ---
RYAN VITALE AT BEDSIDE RE EVALUATING PT
--- NOTE | 2019-07-26 04:27 | NUR ---
PT RESTING ON GURNEY WITH EYES CLOSED, AROUSES TO VERBAL STIMULI. VITALS ALL STABLE. PT NONTREMULOUS, DENIES ANY NAUSEA/VOMITING AT THIS TIME. CHART UP FOR RECHECK.
[2019-07-26] MEDS ORDERED: ACETAMINOPHEN 500 MG TABLET PO ONE (05:00)
--- NOTE | 2019-07-26 05:54 | NUR ---
PT CONTINUES TO SLEEP, AROUSED EASILY BY VERBAL STIMULI. ALL VITALS STABLE. AWAITING MEDS TO FINISH BEFORE DISCHARGE. CALL LIGHT WITHIN REACH. WILL CONTINUE TO MONITOR.
--- NOTE | 2019-07-26 06:49 | NUR ---
RECEIVED BEDSIDE REPORT FROM IVAN JOSE. PT SLEEPING ON [facility]. BANANA BAG INFUSING.
--- NOTE | 2019-07-26 07:01 | NUR ---
REPORT TO IVAN ANSARI
--- NOTE | 2019-07-26 08:43 | NUR ---
PT CONTINUES TO SLEEP ON GURNEY. NADN. BANANA BAG STILL INFUSING. WILL CONTINUE TO MONITOR
--- NOTE | 2019-07-26 08:44 | NUR ---
LATE ENTRY FOR 0800 PT SLEEPING ON GURNEY. MEDS STILL INFUSING. NADN. RESPS EQUAL AND UNLABORED. WILL CONTINUE TO MONITOR.
--- NOTE | 2019-07-26 08:57 | NUR ---
BEDSIDE REPORT TO IVAN VAUGHN.
--- NOTE | 2019-07-26 09:00 | NUR ---
report received at bedside from IVAN Mendenhall. pt resting on gurney, resps even and unlabored, IVF infusing via pump. all monitors in place, nadn at this time.
--- NOTE | 2019-07-26 10:00 | NUR ---
ciwa score 7, pt hypertensive. EDMD To notified. instructed RN to admin 1mg IV ativan. pt educated regarding poc, pt agreeable to second dose ativan. pt a&o (states date is jun 2019), resps even and unlabored, sinus tach on manager cardiac cath. call light in reach. bed locked and in lowest postiion. ivf infusing at prescribed rate via iv pump.
--- NOTE | 2019-07-26 11:16 | NUR ---
BREAK RN: URINAL EMPTIED OF 550ML CLEAR YELLOW URINE. PT OOB AND STOOD SO SHEET COULD BE READJUSTED ON GURNEY. RTD TO BED AND PILLOW PROVIDED. VSS NOTED. IVF INFUSING W/O DIFFICULTY
--- NOTE | 2019-07-26 12:10 | NUR ---
THIS RN BACK FROM MEAL BREAK, REPORT RECEIVED FROM BREAK IVAN NGUYEN.
[2019-07-26 12:33] VITALS: BP 141/89
--- NOTE | 2019-07-26 12:58 | NUR ---
pt a&ox4, resps even and unlabored, neuro intact, bp improved. ciwa score 2. pt ambulatory with steady gait, unassisted. pt verbalizes plan to stop etoh, given substance abuse resources and referral to [facility] for detox. pt given rx and education for librium and zofran. pt given cab voucher home, pt states he has roommates at home who are currently home. pt given wc escort to dc. piv removed with tip intact. pt given dc instructions. all questions answered.
== END 2019-07-26 13:02 | disposition home or self-care (01) ==
LOC: ED 04:25
DX: F10.239 Alcohol dependence with withdrawal, unspecified (principal); I10 Essential (primary) hypertension; Y90.0 Blood alcohol level of less than 20 mg/100 ml
CPT/HCPCS: 36415; 80053; 80307; 83690; 85025; 93005; 96365; 96366; 96375; 96376; 99285; J2060; J3411; J3475; J7030

== ENCOUNTER 2019-08-07 00:32 | Emergency (ER) | payer MEDICAID ==
[~2019-08-07] VITALS: Ht 167.6 cm; Wt 95.5 kg
--- NOTE | 2019-08-07 00:36 | NUR ---
WILIAN RN ASSISTING PRIMARY IVAN TIM WITH PT CHECK IN. [facility] FOR "PAIN IN MY STOMACH FOR A FEW HOURS AND MY LOWER BACK, BEEN GOING ON FOR A FEW DAYS, ALSO NAUSEATED, THREW UP ONCE AND DIARRHEA, I DRANK 1.5 PINTS OF VODKA AND SOME BEER. ALSO MY CHEST HURTS, IT SUCKS BAD IF YOU PUSH ON IT, DON'T DO THAT." +ETOH. EKG COMPLETED. PER EMS PT AT [facility] YESTERDAY FOR SAME, DX WITH GASTRITIS, CIRRHOSIS AND GALLSTONES. PT AMBULATED TO ROOM FROM AMBULANCE WITH STEADY GAIT. A&OX4. DR. BURNETTE AT BEDSIDE FOR EVALUATION. CONT PULSE OX, BP, CARDIAC MONITORS APPLIED, ST ON MONITOR. VSS. FALL PRECAUTIONS IN PLACE. SIDE RAILS UPX2. RATES CP, ABD AND LOW BACK PAIN /. +N/V/D PER PT. DENIES SOB, COUGH, FEVERS, CHILLS. REPORT AND TRANSFER OF CARE TO PRIMARY IVAN TIM.
[2019-08-07] MEDS ORDERED: ONDANSETRON ODT 4 MG ONE (00:42)
[2019-08-07] MEDS ORDERED: MAALOX/HYOSCYAMINE/LIDOCAINE 45 ML BTL ONE (00:42)
--- NOTE | 2019-08-07 00:54 | NUR ---
PATIENT MEDICATED PER EMAR, TOLERATED WELL.
[2019-08-07] MEDS ORDERED: ONDANSETRON ODT 4 MG PO ONE (01:00)
[2019-08-07] MEDS ORDERED: MAALOX/HYOSCYAMINE/LIDOCAINE 45 ML BTL PO ONE (01:00)
[2019-08-07 01:05] LABS: BASOPHILS # (AUTO) 0.04 x10^3/uL (0-0.1); BASOPHILS % (AUTO) 1 % (0-1); EOSINOPHILS # (AUTO) 0.11 x10^3/uL (0-0.4); EOSINOPHILS % (AUTO) 2 % (1-7); LYMPHOCYTES # (AUTO) 2.83 x10^3/uL (1-3.4); LYMPHOCYTES % (AUTO) 49 % (22-44); MD NO; MEAN CORPUSCULAR HEMOGLOBIN 32.3 pg (27.5-34.5); MEAN CORPUSCULAR HGB CONC 34.2 g/dL (33.2-36.2); MEAN CORPUSCULAR VOLUME 94.5 fL (81-97); MEAN PLATELET VOLUME 7.1 fL (7.4-10.4); MONOCYTES # (AUTO) 0.57 x10^3/uL (0.2-0.8); MONOCYTES % (AUTO) 10 % (2-9); NEUTROPHILS # (AUTO) 2.18 x10^3/uL (1.8-6.8); NEUTROPHILS % (AUTO) 38 % (42-75); PLATELET COUNT 289 x10^3/uL (130-400); RED BLOOD COUNT 4.83 x10^6/uL (4.38-5.82)
[2019-08-07 01:16] LABS: ALANINE AMINOTRANSFERASE 92 U/L (12-78); ALBUMIN 3.3 g/dL (3.4-5.0); ANION GAP 12 mmol/L (5-15); CALCIUM 8.4 mg/dL (8.5-10.1); CHLORIDE 103 mmol/L (98-107)
[2019-08-07 01:18] LABS: ALKALINE PHOSPHATASE 100 U/L (45-117); BILIRUBIN,TOTAL 0.2 mg/dL (0.2-1.0)
[2019-08-07] MEDS ORDERED: MORPHINE SULFATE 4 MG/ML, 1ML IVPush PRN (01:30)
[2019-08-07] MEDS ORDERED: ONDANSETRON 2MG/ML, 2ML IVPush ONE (01:30)
[2019-08-07] MEDS ORDERED: SODIUM CHLORIDE 0.9% 1,000ML IVBOLUS ONE (01:30)
[2019-08-07] MEDS ORDERED: ONDANSETRON 2MG/ML, 2ML ONE (01:33)
[2019-08-07] MEDS ORDERED: MORPHINE SULFATE 4 MG/ML, 1ML ONE (01:33)
--- NOTE | 2019-08-07 01:38 | NUR ---
PIV PLACED, PATIENT MEDICATED PER EMAR, IVF STARTED. PATIENT TO ULTRASOUND AT THIS TIME
--- NOTE | 2019-08-07 02:05 | NUR ---
PATIENT BACK FROM ULTRASOUND. VSS, C/O PAIN AFTER PROCEDURE. ERP AWARE
--- NOTE | 2019-08-07 02:36 | NUR ---
VERBAL ORDERS BY ERP FOR PO OMEPRAZOLE AND PO PEPCID TO BE GIVEN
[2019-08-07] MEDS ORDERED: FAMOTIDINE 20 MG TABLET ONE (02:38)
[2019-08-07] MEDS ORDERED: OMEPRAZOLE 20 MG CAPSULE.DR ONE (02:38)
--- NOTE | 2019-08-07 02:55 | NUR ---
PATIENT CONTINUALLY ASKING FOR MEDICATIONS "I NEED ATIVAN FOR MY SHAKES, AND I'M STILL IN PAIN" MD FIONA NOTIFIED, TO RECHECK ON PATIENT
[2019-08-07 02:56] VITALS: BP 133/86
[2019-08-07] MEDS ORDERED: FAMOTIDINE 20 MG TABLET PO ONE (03:00)
[2019-08-07] MEDS ORDERED: OMEPRAZOLE 20 MG CAPSULE.DR PO SCH (03:00)
[2019-08-07] MEDS ORDERED: LORazepam 2 MG/ML, 1ML ONE (03:11)
--- NOTE | 2019-08-07 03:19 | NUR ---
PATIENT MEDICATED PER EMAR, TOLERATED WELL. GIVEN ATIVAN FOR SHAKING PER MD ORDERS
[2019-08-07] MEDS ORDERED: LORazepam 2 MG/ML, 1ML IVPush ONE (03:30)
--- NOTE | 2019-08-07 03:43 | NUR ---
PIV REMOVED, PATIENT AMBULATORY WITH STEADY GAIT IN ROOM. PROVIDED PATIENT WITH TAXI VOUCHER. PATIENT INSTRUCTED TO GET DRESSED AT THIS TIME
== END 2019-08-07 03:57 | disposition home or self-care (01) ==
LOC: ED 03:15
DX: K29.20 Alcoholic gastritis without bleeding (principal); R10.13 Epigastric pain; R11.2 Nausea with vomiting, unspecified; F17.200 Nicotine dependence, unspecified, uncomplicated; I10 Essential (primary) hypertension; F10.10 Alcohol abuse, uncomplicated; Y90.0 Blood alcohol level of less than 20 mg/100 ml
CPT/HCPCS: 36415; 76700; 80053; 83690; 85025; 93005; 96361; 96374; 96375; 99285; J2060; J2270; J2405; J7030; Q0162

== ENCOUNTER 2019-08-26 01:16 | Emergency (ER) | payer MEDICAID ==
[~2019-08-26] VITALS: Ht 167.6 cm; Wt 89.2 kg
[2019-08-26 01:19] VITALS: BP 163/115
[2019-08-26] MEDS ORDERED: MAALOX/HYOSCYAMINE/LIDOCAINE 45 ML BTL ONE (01:52)
[2019-08-26] MEDS ORDERED: MAALOX/HYOSCYAMINE/LIDOCAINE 45 ML BTL PO ONE (02:00)
[2019-08-26 02:08] LABS: BASOPHILS # (AUTO) 0.06 x10^3/uL (0-0.1); BASOPHILS % (AUTO) 1 % (0-1); EOSINOPHILS # (AUTO) 0.15 x10^3/uL (0-0.4); EOSINOPHILS % (AUTO) 2 % (1-7); LYMPHOCYTES % (AUTO) 26 % (22-44); MD NO; MEAN CORPUSCULAR HEMOGLOBIN 33.2 pg (27.5-34.5); MEAN CORPUSCULAR HGB CONC 34.2 g/dL (33.2-36.2); MEAN PLATELET VOLUME 7.5 fL (7.4-10.4); MONOCYTES # (AUTO) 1.24 x10^3/uL (0.2-0.8); MONOCYTES % (AUTO) 16 % (2-9); NEUTROPHILS # (AUTO) 4.48 x10^3/uL (1.8-6.8); NEUTROPHILS % (AUTO) 56 % (42-75); PLATELET COUNT 318 x10^3/uL (130-400); RED BLOOD COUNT 4.36 x10^6/uL (4.38-5.82); RED CELL DISTRIBUTION WIDTH 14.6 % (9.4-14.8)
[2019-08-26 02:11] LABS: ALANINE AMINOTRANSFERASE 128 U/L (12-78); ALBUMIN 3.4 g/dL (3.4-5.0); ANION GAP 3 mmol/L (5-15); CALCIUM 9.3 mg/dL (8.5-10.1); CHLORIDE 105 mmol/L (98-107); CREATININE 0.79 mg/dL (0.7-1.3)
[2019-08-26 02:14] LABS: ALKALINE PHOSPHATASE 96 U/L (45-117); BILIRUBIN,TOTAL 0.2 mg/dL (0.2-1.0); TOTAL PROTEIN 7.8 g/dL (6.4-8.2)
== END 2019-08-26 02:38 | disposition home or self-care (01) ==
LOC: ED 01:56
DX: K29.20 Alcoholic gastritis without bleeding (principal); F10.10 Alcohol abuse, uncomplicated; I10 Essential (primary) hypertension; F17.200 Nicotine dependence, unspecified, uncomplicated; Y90.0 Blood alcohol level of less than 20 mg/100 ml
CPT/HCPCS: 36415; 80053; 83690; 85025; 99283

== ENCOUNTER 2019-09-04 19:09 | Emergency (ER) | payer MEDICAID ==
[~2019-09-04] VITALS: Ht 167.6 cm; Wt 95.0 kg
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
[2019-09-04] MEDS ORDERED: LORazepam 1MG TABLET ONE (19:27)
[2019-09-04] MEDS ORDERED: LORazepam 1MG TABLET PO ONE (19:30)
--- NOTE | 2019-09-04 19:38 | NUR ---
PT MEDICATED PER EMAR.
--- NOTE | 2019-09-04 19:38 | NUR ---
AT BEDSIDE FOR EVAL.
[2019-09-04 19:53] LABS: BASOPHILS # (AUTO) 0.04 x10^3/uL (0-0.1); BASOPHILS % (AUTO) 0 % (0-1); EOSINOPHILS # (AUTO) 0.03 x10^3/uL (0-0.4); EOSINOPHILS % (AUTO) 0 % (1-7); LYMPHOCYTES # (AUTO) 1.36 x10^3/uL (1-3.4); LYMPHOCYTES % (AUTO) 11 % (22-44); MD NO; MEAN CORPUSCULAR HEMOGLOBIN 32.9 pg (27.5-34.5); MEAN CORPUSCULAR HGB CONC 33.9 g/dL (33.2-36.2); MEAN CORPUSCULAR VOLUME 97.2 fL (81-97); MEAN PLATELET VOLUME 7.8 fL (7.4-10.4); MONOCYTES # (AUTO) 1.38 x10^3/uL (0.2-0.8); MONOCYTES % (AUTO) 12 % (2-9); NEUTROPHILS # (AUTO) 9.14 x10^3/uL (1.8-6.8); NEUTROPHILS % (AUTO) 77 % (42-75); PLATELET COUNT 430 x10^3/uL (130-400); RED BLOOD COUNT 4.85 x10^6/uL (4.38-5.82); RED CELL DISTRIBUTION WIDTH 13.3 % (9.4-14.8)
[2019-09-04] MEDS ORDERED: SODIUM CHLORIDE 0.9% 1,000ML IVBOLUS ONE (20:00)
[2019-09-04 20:03] LABS: ALANINE AMINOTRANSFERASE 108 U/L (12-78); ALBUMIN 3.7 g/dL (3.4-5.0); ANION GAP 9 mmol/L (5-15); CALCIUM 9.6 mg/dL (8.5-10.1); CHLORIDE 103 mmol/L (98-107); CREATININE 1.06 mg/dL (0.7-1.3)
[2019-09-04 20:06] LABS: ALKALINE PHOSPHATASE 140 U/L (45-117); BILIRUBIN,TOTAL 0.7 mg/dL (0.2-1.0)
--- NOTE | 2019-09-04 20:07 | NUR ---
ALL TESTS RESULTED. PT IS UP FOR RECHECK AT THIS TIME.
[2019-09-04] MEDS ORDERED: LORazepam 2 MG/ML, 1ML IVPush ONE (20:30)
[2019-09-04] MEDS ORDERED: LORazepam 2 MG/ML, 1ML ONE (20:31)
--- NOTE | 2019-09-04 21:52 | NUR ---
PT REMAINS UP FOR RECHECK AT THIS TIME. PA AND AWARE.
[2019-09-04 22:33] VITALS: BP 125/83
== END 2019-09-04 23:20 | disposition home or self-care (01) ==
LOC: ED 19:35
DX: R10.84 Generalized abdominal pain (principal); F10.20 Alcohol dependence, uncomplicated; F15.229 Other stimulant dependence with intoxication, unspecified; G47.00 Insomnia, unspecified; F17.210 Nicotine dependence, cigarettes, uncomplicated; I10 Essential (primary) hypertension; R94.31 Abnormal electrocardiogram [ECG] [EKG]; Z72.9 Problem related to lifestyle, unspecified; Y90.0 Blood alcohol level of less than 20 mg/100 ml
CPT/HCPCS: 36415; 80053; 80307; 83690; 85025; 93005; 96374; 99284; J2060; J7030

== ENCOUNTER 2019-09-12 11:41 | Inpatient (IN) | payer MEDICAID ==
[~2019-09-12] VITALS: Ht 167.6 cm; Wt 92.1 kg
--- NOTE | 2019-09-12 11:55 | NUR ---
CATALINO. REPORT RECEIVED FROM EMS. +ETOH AND METH. PT WANTS DETOX. LAST DRINK WAS 2AM IN THIS AM WITH METH USE. C/O GASTRIC PAIN WELL. DENIES SI/HI. PT'S AOX4. RESPS EVEN AND UNLABORED. ALL MONITORS IN PLACE. SINUS TACHY RATE 130-140'S ON AFTER SCHOOL CAREGIVER AT THIS TIME. EKG DONE AT BEDSIDE. PA AT BEDSIDE TO EVALUATE AT THIS TIME.
[2019-09-12] MEDS ORDERED: SODIUM CHLORIDE FLUSH 10ML SYR IVF ONE (12:00)
[2019-09-12 12:18] LABS: MEAN CORPUSCULAR HEMOGLOBIN 32.8 pg (27.5-34.5); MEAN CORPUSCULAR HGB CONC 33.5 g/dL (33.2-36.2); MEAN CORPUSCULAR VOLUME 97.9 fL (81-97); MEAN PLATELET VOLUME 7.3 fL (7.4-10.4); PLATELET COUNT 355 x10^3/uL (130-400); RED BLOOD COUNT 5.03 x10^6/uL (4.38-5.82); RED CELL DISTRIBUTION WIDTH 13.7 % (9.4-14.8)
[2019-09-12 12:28] LABS: ALANINE AMINOTRANSFERASE 114 U/L (12-78); ALBUMIN 3.6 g/dL (3.4-5.0); ANION GAP 9 mmol/L (5-15); CALCIUM 9.4 mg/dL (8.5-10.1); CHLORIDE 100 mmol/L (98-107); CREATININE 1.14 mg/dL (0.7-1.3)
[2019-09-12 12:33] LABS: ALKALINE PHOSPHATASE 152 U/L (45-117); BILIRUBIN,TOTAL 0.7 mg/dL (0.2-1.0); TOTAL PROTEIN 8.8 g/dL (6.4-8.2); TROPONIN I < 0.015 ng/mL (0.000-0.045)
[2019-09-12 12:39] LABS: AMPHETAMINE SCREEN, URINE Positive (Negative); BARBITURATE SCREEN, URINE Negative (Negative); BENZODIAZEPINE SCREEN, URINE Positive (Negative); CANNABINOID SCREEN, URINE Negative (Negative); COCAINE SCREEN, URINE Positive (Negative); METHADONE SCREEN, URINE Negative (Negative); OPIATE SCREEN, URINE Negative (Negative)
[2019-09-12 12:45] LABS: BASOPHILS # (AUTO) 0.04 x10^3/uL (0-0.1); BASOPHILS % (AUTO) 0 % (0-1); EOSINOPHILS % (AUTO) 0 % (1-7); LYMPHOCYTES # (AUTO) 1.14 x10^3/uL (1-3.4); LYMPHOCYTES % (AUTO) 9 % (22-44); MD SCAN; MONOCYTES % (AUTO) 10 % (2-9); NEUTROPHILS # (AUTO) 10.89 x10^3/uL (1.8-6.8); NEUTROPHILS % (AUTO) 81 % (42-75)
--- NOTE | 2019-09-12 12:56 | NUR ---
Provider informed of elevated heart rate and anxious behavior. MD at this time would like to continue to monitor.
[2019-09-12] MEDS ORDERED: SODIUM CHLORIDE 0.9% 1,000ML IVBOLUS ONE ×2 (13:00→21:30)
--- NOTE | 2019-09-12 13:03 | NUR ---
MD Steve at this time would like for fluids and iv ativan.
[2019-09-12] MEDS ORDERED: LORazepam 2 MG/ML, 1ML ONE ×2 (13:04→14:02)
[2019-09-12] MEDS: LORazepam 2 MG/ML, 1ML IVPush PRN ×4 (13:06→14:25)
--- NOTE | 2019-09-12 13:07 | NUR ---
ASSUMED CARE OF PT. PT SITTING UPRIGHT IN BED. HR IN 130'S, HYPERTENSIVE, MEDICATED PER JUL. 3P'S ADDRESSED.
--- NOTE | 2019-09-12 13:52 | NUR ---
ASSUMED CARE OF PT AFTER BREAK. ORDERS NOTED. 3P'S ADDRESSED.
[2019-09-12] MEDS ORDERED: MAGNESIUM SULFATE PMX 2GM/50ML 50 ML ONE (13:58)
[2019-09-12] MEDS ORDERED: MAGNESIUM SULFATE 1 GM, THIAMINE 100 MG, FOLIC ACID 1 MG, MVI ADULT 10 ML in SODIUM CHL... IV ONE ×2 (14:00→17:00)
[2019-09-12] MEDS ORDERED: MAGNESIUM SULFATE PMX 2GM/50ML 50 ML IV ONE ×2 (14:00→14:30)
--- NOTE | 2019-09-12 14:23 | NUR ---
PT'S TACHYCARDIA 130'S-140'S. PROVIDER AWARE. PT MEDICATED PER JUL. MONITOR IN PLACE.
[2019-09-12] MEDS ORDERED: AMLODIPINE 5 MG TABLET PO ONE (14:30)
[2019-09-12] MEDS ORDERED: ONDANSETRON 2MG/ML, 2ML IVPush PRN (14:30)
[2019-09-12] MEDS ORDERED: ONDANSETRON ODT 4 MG PO PRN (14:30)
[2019-09-12] MEDS ORDERED: LORazepam 0.5MG TABLET PO PRN (14:30)
[2019-09-12] MEDS ORDERED: POTASSIUM CHLORIDE 40 MEQ in SODIUM CHLORIDE 0.9% 500 ML IV ONE (14:30)
[2019-09-12] MEDS: NICOTINE 14MG/24 HR PATCH.TD24 TD SCH (14:30)
[2019-09-12] MEDS ORDERED: LORazepam 2 MG/ML, 1ML IV PRN (14:30)
--- NOTE | 2019-09-12 15:01 | NUR ---
UNABLE TO ACQUIRE A MED PUMP BEFORE PT TRANSFERRED TO FLOOR. FLUIDS SENT WITH PT, RN AWARE.
[2019-09-12 15:21] VITALS: BP 151/115
[2019-09-12 15:23] VITALS: BP 161/118
[2019-09-12] MEDS: LORazepam 2 MG/ML, 1ML IV PRN ×6 (15:32→22:58)
[2019-09-12] MEDS ORDERED: GABAPENTIN 300 MG CAPSULE PO SCH (16:00)
[2019-09-12] MEDS: HEPARIN 5,000 UNITS/ML, 1ML SQ SCH ×2 (16:54→22:57)
[2019-09-12] MEDS: LORazepam 1MG TABLET PO PRN (17:47)
[2019-09-12] MEDS: GABAPENTIN 100 MG CAPSULE PO SCH ×2 (17:47→19:56)
[2019-09-12 19:21] VITALS: BP 173/134
[2019-09-12] MEDS: CHLORDIAZEPOXIDE 25 MG CAPSULE PO PRN (19:41)
[2019-09-12 21:09] VITALS: BP 163/124
[2019-09-13 01:44] VITALS: BP 143/103
[2019-09-13] MEDS ORDERED: NITROGLYCERIN 0.4 MG BOTTLE (25 TABS) SL PRN (02:30)
[2019-09-13] MEDS ORDERED: NITROGLYCERIN 0.4 MG/SPRAY SL PRN (02:30)
[2019-09-13] MEDS ORDERED: MORPHINE SULFATE 4 MG/ML, 1ML IVPush ONE (02:30)
[2019-09-13] MEDS: LORazepam 2 MG/ML, 1ML IV PRN ×5 (02:38→06:47)
[2019-09-13] MEDS: SODIUM CHLORIDE 0.9% 1,000 ML IV SCH ×2 (04:00→14:28)
[2019-09-13] MEDS: CHLORDIAZEPOXIDE 25 MG CAPSULE PO PRN (04:00)
[2019-09-13] MEDS: ACETAMINOPHEN 325 MG TABLET PO PRN (04:00)
[2019-09-13 05:29] LABS: BASOPHILS # (AUTO) 0.03 x10^3/uL (0-0.1); BASOPHILS % (AUTO) 0 % (0-1); EOSINOPHILS # (AUTO) 0.13 x10^3/uL (0-0.4); EOSINOPHILS % (AUTO) 2 % (1-7); LYMPHOCYTES # (AUTO) 3.35 x10^3/uL (1-3.4); LYMPHOCYTES % (AUTO) 39 % (22-44); MD NO; MEAN CORPUSCULAR HEMOGLOBIN 32.6 pg (27.5-34.5); MEAN CORPUSCULAR HGB CONC 33.8 g/dL (33.2-36.2); MEAN CORPUSCULAR VOLUME 96.5 fL (81-97); MEAN PLATELET VOLUME 7.6 fL (7.4-10.4); MONOCYTES % (AUTO) 12 % (2-9); NEUTROPHILS # (AUTO) 4.18 x10^3/uL (1.8-6.8); NEUTROPHILS % (AUTO) 48 % (42-75); PLATELET COUNT 285 x10^3/uL (130-400); RED BLOOD COUNT 4.81 x10^6/uL (4.38-5.82); RED CELL DISTRIBUTION WIDTH 13.8 % (9.4-14.8)
[2019-09-13 05:32] LABS: ALBUMIN 3.5 g/dL (3.4-5.0); ANION GAP 7 mmol/L (5-15); CALCIUM 8.9 mg/dL (8.5-10.1); CHLORIDE 102 mmol/L (98-107)
[2019-09-13 05:37] LABS: ALANINE AMINOTRANSFERASE 101 U/L (12-78); ALKALINE PHOSPHATASE 146 U/L (45-117); BILIRUBIN,TOTAL 1.3 mg/dL (0.2-1.0); CREATININE 0.79 mg/dL (0.7-1.3); TOTAL PROTEIN 8.4 g/dL (6.4-8.2)
[2019-09-13] MEDS ORDERED: SODIUM CHLORIDE 0.9%, 500ML IVBOLUS ONE (06:00)
[2019-09-13 08:00] VITALS: BP 142/104
[2019-09-13] MEDS: HEPARIN 5,000 UNITS/ML, 1ML SQ SCH ×3 (08:16→22:41)
[2019-09-13] MEDS: LISINOPRIL 10 MG TABLET PO SCH (08:16)
[2019-09-13] MEDS: GABAPENTIN 100 MG CAPSULE PO SCH ×3 (08:16→20:33)
[2019-09-13] MEDS: THIAMINE 100MG TABLET PO SCH (08:17)
[2019-09-13] MEDS: LORazepam 1MG TABLET PO PRN ×4 (08:28→20:33)
[2019-09-13] MEDS ORDERED: POTASSIUM CHLORIDE 20 MEQ TAB.ER.PRT PO ONE (09:00)
[2019-09-13] MEDS: HYDROXYZINE PAMOATE 25MG CAP PO SCH (10:38)
[2019-09-13] MEDS: NICOTINE 14MG/24 HR PATCH.TD24 TD SCH (14:29)
[2019-09-13 15:38] VITALS: BP 132/102
[2019-09-13 20:20] VITALS: BP 138/98
[2019-09-13] MEDS: AMLODIPINE 10 MG TAB PO SCH (20:33)
[2019-09-13] MEDS ORDERED: KETOROLAC 30 MG/1 ML IM PRN (23:00)
[2019-09-14] MEDS: LORazepam 1MG TABLET PO PRN (00:14)
[2019-09-14 02:01] VITALS: BP 147/102
[2019-09-14] MEDS ORDERED: OXYcodone/APAP 10/325MG TABLET PO ONE (02:30)
[2019-09-14] MEDS: LORazepam 2 MG/ML, 1ML IV PRN ×2 (03:56→06:13)
[2019-09-14] MEDS: HEPARIN 5,000 UNITS/ML, 1ML SQ SCH ×2 (06:13→16:20)
[2019-09-14 06:19] LABS: ALBUMIN 3.3 g/dL (3.4-5.0); ANION GAP 12 mmol/L (5-15); CALCIUM 9.5 mg/dL (8.5-10.1); CHLORIDE 103 mmol/L (98-107); CREATININE 0.75 mg/dL (0.7-1.3)
[2019-09-14 06:26] LABS: ALANINE AMINOTRANSFERASE 116 U/L (12-78); ALKALINE PHOSPHATASE 137 U/L (45-117); BILIRUBIN,TOTAL 0.8 mg/dL (0.2-1.0); TOTAL PROTEIN 8.1 g/dL (6.4-8.2)
[2019-09-14 06:56] VITALS: BP 136/93
[2019-09-14] MEDS: HYDROXYZINE PAMOATE 25MG CAP PO SCH (08:50)
[2019-09-14] MEDS: LISINOPRIL 10 MG TABLET PO SCH (08:50)
[2019-09-14] MEDS: THIAMINE 100MG TABLET PO SCH (08:50)
[2019-09-14 13:15] VITALS: BP 114/76
[2019-09-14] MEDS: NICOTINE 14MG/24 HR PATCH.TD24 TD SCH (16:20)
[2019-09-14 19:29] VITALS: BP 116/79
[2019-09-14] MEDS: SODIUM CHLORIDE 0.9% 1,000 ML IV SCH (20:14)
[2019-09-14] MEDS: AMLODIPINE 10 MG TAB PO SCH (20:22)
[2019-09-14] MEDS: ACETAMINOPHEN 325 MG TABLET PO PRN (20:22)
[2019-09-15 01:38] VITALS: BP 133/94
[2019-09-15 05:46] LABS: CALCIUM 9.3 mg/dL (8.5-10.1); CHLORIDE 105 mmol/L (98-107)
[2019-09-15 05:52] LABS: ALANINE AMINOTRANSFERASE 148 U/L (12-78); ALKALINE PHOSPHATASE 166 U/L (45-117); ANION GAP 9 mmol/L (5-15); BILIRUBIN,TOTAL 0.6 mg/dL (0.2-1.0); TOTAL PROTEIN 7.6 g/dL (6.4-8.2)
[2019-09-15] MEDS: THIAMINE 100MG TABLET PO SCH (08:17)
[2019-09-15] MEDS: HYDROXYZINE PAMOATE 25MG CAP PO SCH (08:20)
[2019-09-15] MEDS: HEPARIN 5,000 UNITS/ML, 1ML SQ SCH ×3 (08:21→16:56)
[2019-09-15] MEDS: LISINOPRIL 10 MG TABLET PO SCH (08:25)
[2019-09-15 08:35] VITALS: BP 122/78
[2019-09-15] MEDS: SODIUM CHLORIDE 0.9% 1,000 ML IV SCH (11:16)
[2019-09-15] MEDS ORDERED: KETOROLAC 30 MG/1 ML ONE (13:46)
[2019-09-15] MEDS ORDERED: KETOROLAC 30 MG/1 ML IM/IV PRN ×2 (14:00→17:00)
[2019-09-15 14:15] VITALS: BP 118/81
[2019-09-15] MEDS: NICOTINE 14MG/24 HR PATCH.TD24 TD SCH (14:30)
[2019-09-15 20:13] VITALS: BP 125/82
[2019-09-15] MEDS: AMLODIPINE 10 MG TAB PO SCH (21:37)
[2019-09-16 01:39] VITALS: BP 130/79
[2019-09-16] MEDS: SODIUM CHLORIDE 0.9% 1,000 ML IV SCH (05:45)
[2019-09-16 06:03] LABS: ALBUMIN 3.1 g/dL (3.4-5.0); BILIRUBIN, DIRECT 0.2 mg/dL (0.1-0.2); BILIRUBIN,INDIRECT 0.3 mg/dL (0.0-2.0); BILIRUBIN,TOTAL 0.5 mg/dL (0.2-1.0); TOTAL PROTEIN 7.7 g/dL (6.4-8.2)
[2019-09-16 07:54] VITALS: BP 115/75
[2019-09-16] MEDS: HYDROXYZINE PAMOATE 25MG CAP PO SCH (09:32)
[2019-09-16] MEDS: HEPARIN 5,000 UNITS/ML, 1ML SQ SCH ×3 (09:32→16:20)
[2019-09-16] MEDS: LISINOPRIL 10 MG TABLET PO SCH (09:33)
[2019-09-16] MEDS: THIAMINE 100MG TABLET PO SCH (09:33)
[2019-09-16] MEDS ORDERED: NICO-486 TD (09:37)
[2019-09-16] MEDS ORDERED: AMLO10TA8 PO (09:37)
[2019-09-16] MEDS: NICOTINE 14MG/24 HR PATCH.TD24 TD SCH (14:30)
[2019-09-16 14:45] VITALS: BP 118/78
== END 2019-09-16 17:34 | disposition home or self-care (01) | DRG 433 ==
LOC: ED 12:19 → EDIP 13:45 → 4WST 15:10 → 5SO 20:41
PROVIDERS: ADMIT Hospitalist; ATTEND Hospitalist
DX: K70.10 Alcoholic hepatitis without ascites (principal); F10.239 Alcohol dependence with withdrawal, unspecified; E66.9 Obesity, unspecified; E83.42 Hypomagnesemia; E87.6 Hypokalemia; F14.10 Cocaine abuse, uncomplicated; F15.10 Other stimulant abuse, uncomplicated; F17.210 Nicotine dependence, cigarettes, uncomplicated; F22 Delusional disorders; F32.9 Major depressive disorder, single episode, unspecified; F41.9 Anxiety disorder, unspecified; G47.00 Insomnia, unspecified; I10 Essential (primary) hypertension; K76.0 Fatty (change of) liver, not elsewhere classified; Z88.8 Allergy status to other drugs, medicaments and biological substances; Z68.32 Body mass index [BMI] 32.0-32.9, adult
CPT/HCPCS: 36415; 71045; 76705; 80053; 80074; 80076; 80307; 83735; 84484; 85025; 93005; 96361; 96374; 96375; 96376; 99291; G0378; J1644; J1885; J3411; J3475; J3480; J2060; J2270; J7030; J7040

== ENCOUNTER 2019-09-16 23:11 | Emergency (ER) | payer MEDICAID ==
[~2019-09-16] VITALS: Ht 167.6 cm; Wt 136.0 kg
[~2019-09-16 23:11] MED LIST changes: +AMLO10TA8 PO; +NICO-486 TD
[2019-09-16 23:34] VITALS: BP 137/74
--- NOTE | 2019-09-16 23:50 | NUR ---
THIS TECH TRIAGED PT
--- NOTE | 2019-09-16 23:56 | NUR ---
Pt states he is no longer feeling suicidal, has no access to a weapon and has multiple reasons to live. Pt dc'd today from this facility. Pt states he would like to leave, notified. Pt attempted to elope, security called. notified. Pt escorted out of ambulance bay by security.
== END 2019-09-17 00:01 | disposition home or self-care (01) ==
LOC: ED 23:48
DX: F10.10 Alcohol abuse, uncomplicated (principal); R45.851 Suicidal ideations; R05 Cough; F41.9 Anxiety disorder, unspecified; Y90.9 Presence of alcohol in blood, level not specified
CPT/HCPCS: 99281

== ENCOUNTER 2019-10-19 22:18 | Emergency (ER) | payer MEDICAID ==
[~2019-10-19] VITALS: Ht 167.6 cm; Wt 93.0 kg
--- NOTE | 2019-10-19 22:53 | NUR ---
TUMBLING AND ROLLING SUPERVISOR AT BEDSIDE. PROVIDED PT WITH URINE SAMPLE CUP, PT UNABLE TO LEAVE SAMPLE AT THIS TIME. Addendum: 10/19/19 at 2323 by SOLITARIO DOCUMENTED ON WRONG PT.
[2019-10-19 23:00] LABS: BASOPHILS # (AUTO) 0.09 x10^3/uL (0-0.1); BASOPHILS % (AUTO) 1 % (0-1); EOSINOPHILS # (AUTO) 0.01 x10^3/uL (0-0.4); EOSINOPHILS % (AUTO) 0 % (1-7); LYMPHOCYTES # (AUTO) 2.54 x10^3/uL (1-3.4); LYMPHOCYTES % (AUTO) 19 % (22-44); MD NO; MEAN CORPUSCULAR HEMOGLOBIN 32.7 pg (27.5-34.5); MEAN CORPUSCULAR HGB CONC 33.6 g/dL (33.2-36.2); MEAN CORPUSCULAR VOLUME 97.4 fL (81-97); MEAN PLATELET VOLUME 7.5 fL (7.4-10.4); MONOCYTES # (AUTO) 0.81 x10^3/uL (0.2-0.8); MONOCYTES % (AUTO) 6 % (2-9); NEUTROPHILS # (AUTO) 10.26 x10^3/uL (1.8-6.8); NEUTROPHILS % (AUTO) 75 % (42-75); PLATELET COUNT 413 x10^3/uL (130-400); RED BLOOD COUNT 4.99 x10^6/uL (4.38-5.82); RED CELL DISTRIBUTION WIDTH 13.7 % (9.4-14.8)
--- NOTE | 2019-10-19 23:16 | NUR ---
Mariza abdi in [facility] - 10/19/19 at 2322 by SOLITARIO ON ED CONTINUES TO PICK AT SKIN, FRIEND AT BEDSIDE. SAFETY FALL PRECAUTIONS IN PLACE.
--- NOTE | 2019-10-20 00:13 | NUR ---
SLEEPING IN NAD, EVEN AND UNLABORED RESPIRATIONS. SAFETY FALL PRECAUTIONS IN PLACE.
--- NOTE | 2019-10-20 00:53 | NUR ---
UNABLE TO LEAVE URINE SAMPLE AT THIS TIME.
[2019-10-20] MEDS ORDERED: ONDANSETRON ODT 4 MG PO ONE (01:30)
[2019-10-20] MEDS ORDERED: ONDANSETRON ODT 4 MG ONE (01:51)
--- NOTE | 2019-10-20 02:58 | NUR ---
URINE SAMPLE COLLECTED.
[2019-10-20 03:17] LABS: AMPHETAMINE SCREEN, URINE Negative (Negative); BARBITURATE SCREEN, URINE Negative (Negative); BENZODIAZEPINE SCREEN, URINE Negative (Negative); CANNABINOID SCREEN, URINE Negative (Negative); COCAINE SCREEN, URINE Positive (Negative); METHADONE SCREEN, URINE Negative (Negative); OPIATE SCREEN, URINE Negative (Negative)
[2019-10-20] MEDS ORDERED: LORazepam 1MG TABLET PO ONE (04:00)
[2019-10-20] MEDS ORDERED: LORazepam 1MG TABLET ONE (04:01)
--- NOTE | 2019-10-20 04:06 | NUR ---
MEDICATED PER MAR, SAFETY FALL PRECAUTIONS IN PLACE. CALL LIGHT WITHIN REACH.
[2019-10-20 04:38] VITALS: BP 140/95
--- NOTE | 2019-10-20 04:56 | NUR ---
SLEEPING ON GURITALY, NAD. VSS.
== END 2019-10-20 05:16 | disposition home or self-care (01) ==
LOC: ED 22:50
DX: F10.120 Alcohol abuse with intoxication, uncomplicated (principal); F17.210 Nicotine dependence, cigarettes, uncomplicated; F14.10 Cocaine abuse, uncomplicated; R00.2 Palpitations; R00.0 Tachycardia, unspecified; R44.3 Hallucinations, unspecified; E83.42 Hypomagnesemia; I10 Essential (primary) hypertension; Z72.9 Problem related to lifestyle, unspecified; Y90.0 Blood alcohol level of less than 20 mg/100 ml
CPT/HCPCS: 36415; 80047; 80307; 85025; 93005; 99285; 99406; Q0162

== ENCOUNTER 2020-03-06 12:17 | Emergency (ER) | payer MEDICAID ==
[~2020-03-06] VITALS: Ht 167.6 cm; Wt 86.2 kg
[~2020-03-06 12:17] MED LIST changes: +MULT-449 PO; -MULT1TAB60 PO
[2020-03-06] MEDS ORDERED: ONDANSETRON 2MG/ML, 2ML ONE (13:19)
[2020-03-06] MEDS ORDERED: FAMOTIDINE 20 MG/2 ML ONE (13:20)
[2020-03-06] MEDS ORDERED: MORPHINE SULFATE 4 MG/ML, 1ML ONE ×2 (13:20→15:14)
[2020-03-06] MEDS: MORPHINE SULFATE 4 MG/ML, 1ML IVPush PRN ×2 (13:29→15:19)
[2020-03-06] MEDS ORDERED: SODIUM CHLORIDE 0.9% 1,000ML IVBOLUS ONE (13:30)
[2020-03-06] MEDS ORDERED: ONDANSETRON 2MG/ML, 2ML IVPush ONE (13:30)
[2020-03-06] MEDS ORDERED: FAMOTIDINE 20 MG/2 ML IVPush ONE (13:30)
[2020-03-06 13:32] LABS: BASOPHILS % (AUTO) 1 % (0-1); EOSINOPHILS % (AUTO) 1 % (1-7); LYMPHOCYTES % (AUTO) 25 % (22-44); MEAN CORPUSCULAR HEMOGLOBIN 30.5 pg (27.5-34.5); MEAN CORPUSCULAR HGB CONC 33.1 g/dL (33.2-36.2); MEAN PLATELET VOLUME 7.9 fL (7.4-10.4); MONOCYTES % (AUTO) 7 % (2-9); NEUTROPHILS % (AUTO) 66 % (42-75); PLATELET COUNT 394 x10^3/uL (130-400); RED BLOOD COUNT 5.36 x10^6/uL (4.38-5.82); RED CELL DISTRIBUTION WIDTH 13.3 % (9.4-14.8)
[2020-03-06 13:40] LABS: ALANINE AMINOTRANSFERASE 53 U/L (12-78); ALBUMIN 3.8 g/dL (3.4-5.0); ANION GAP 7 mmol/L (5-15); CALCIUM 9.6 mg/dL (8.5-10.1); CHLORIDE 109 mmol/L (98-107); CREATININE 0.95 mg/dL (0.7-1.3)
[2020-03-06 13:43] LABS: ALKALINE PHOSPHATASE 102 U/L (45-117); BILIRUBIN,TOTAL 0.5 mg/dL (0.2-1.0); TOTAL PROTEIN 8.3 g/dL (6.4-8.2)
--- NOTE | 2020-03-06 13:43 | NUR ---
IV STARTED, PT MEDICATED PER EMAR. ORDERED FLUIDS HANGING. PT HOOKED UP TO VITALS MONITORS. US AT BEDSIDE AT THIS TIME.
[2020-03-06 13:55] LABS: MD SCAN
--- NOTE | 2020-03-06 14:20 | NUR ---
PT ABLE TO PROVIDE URINE SAMPLE. URINE WALKED TO LAB.
[2020-03-06 14:31] LABS: MICROSCOPIC AUTO
--- NOTE | 2020-03-06 16:07 | NUR ---
BREAK RN: PT IN CT SCAN
[2020-03-06] MEDS ORDERED: OMNIPAQUE 350 MG/ML, 100ML BOTTLE ONE (16:21)
[2020-03-06] MEDS ORDERED: KETOROLAC 30 MG/1 ML ONE (16:51)
[2020-03-06] MEDS ORDERED: KETOROLAC 30 MG/1 ML IVPush ONE (17:00)
[2020-03-06 17:27] VITALS: BP 123/85
== END 2020-03-06 17:28 | disposition home or self-care (01) ==
LOC: ED 14:11
DX: K80.20 Calculus of gallbladder without cholecystitis without obstruction (principal); R10.11 Right upper quadrant pain; R11.2 Nausea with vomiting, unspecified
CPT/HCPCS: 36415; 74177; 76700; 80053; 81001; 83690; 85025; 96361; 96374; 96375; 96376; 99285; J1885; J2270; J2405; J3490; J7030; Q9967

== ENCOUNTER 2020-03-19 16:20 | Inpatient (IN) | payer MEDICAID ==
[~2020-03-19] VITALS: Ht 167.6 cm; Wt 89.8 kg
[2020-03-19] MEDS ORDERED: ONDANSETRON 2MG/ML, 2ML ONE (16:56)
[2020-03-19] MEDS ORDERED: MORPHINE SULFATE 4 MG/ML, 1ML ONE ×2 (16:56→18:25)
[2020-03-19] MEDS ORDERED: FAMOTIDINE 20 MG/2 ML ONE (16:56)
[2020-03-19] MEDS ORDERED: FAMOTIDINE 20 MG/2 ML IVPush ONE (17:00)
[2020-03-19] MEDS ORDERED: SODIUM CHLORIDE FLUSH 10ML SYR IVF ONE (17:00)
[2020-03-19] MEDS ORDERED: ONDANSETRON 2MG/ML, 2ML IVPush ONE (17:00)
[2020-03-19] MEDS: MORPHINE SULFATE 4 MG/ML, 1ML IVPush PRN ×2 (17:08→18:26)
[2020-03-19 17:31] LABS: BASOPHILS % (AUTO) 1 % (0-1); EOSINOPHILS % (AUTO) 2 % (1-7); LYMPHOCYTES % (AUTO) 29 % (22-44); MEAN CORPUSCULAR HEMOGLOBIN 31.2 pg (27.5-34.5); MEAN CORPUSCULAR HGB CONC 34.2 g/dL (33.2-36.2); MEAN PLATELET VOLUME 7.9 fL (7.4-10.4); MONOCYTES % (AUTO) 8 % (2-9); NEUTROPHILS % (AUTO) 61 % (42-75); PLATELET COUNT 396 x10^3/uL (130-400); RED BLOOD COUNT 5.27 x10^6/uL (4.38-5.82); RED CELL DISTRIBUTION WIDTH 13.3 % (9.4-14.8)
--- NOTE | 2020-03-19 17:39 | NUR ---
PT HAS CO ABDOMINAL PAIN W NAUSEA. CRAMPING PRESENT. MEDICATED PER ORDERS.
[2020-03-19 17:41] LABS: ALBUMIN 3.5 g/dL (3.4-5.0); ANION GAP 6 mmol/L (5-15); CALCIUM 8.6 mg/dL (8.5-10.1); CHLORIDE 109 mmol/L (98-107)
[2020-03-19 17:44] LABS: ALKALINE PHOSPHATASE 110 U/L (45-117); BILIRUBIN,TOTAL 0.4 mg/dL (0.2-1.0); CREATININE 0.92 mg/dL (0.7-1.3); TOTAL PROTEIN 7.8 g/dL (6.4-8.2)
[2020-03-19 17:49] LABS: ALANINE AMINOTRANSFERASE 64 U/L (12-78)
[2020-03-19 18:03] LABS: MD SCAN
--- NOTE | 2020-03-19 18:34 | NUR ---
PT STILL HAVING ABDOMINAL PAIN. MEDICATED W PAIN MED. VSS.
[2020-03-19 18:46] LABS: MICROSCOPIC AUTO
--- NOTE | 2020-03-19 18:50 | NUR ---
REPORT TO GWENDOLYN
[2020-03-19] MEDS ORDERED: D5%-0.45% NACL 1,000 ML IV ONE (19:30)
[2020-03-19] MEDS ORDERED: MORPHINE SULFATE 4 MG/ML, 1ML IVPush PRN ×2 (19:30→20:30)
[2020-03-19] MEDS ORDERED: SODIUM CHLORIDE FLUSH 10ML SYR IVF PRN (19:30)
[2020-03-19 21:15] VITALS: BP 129/85
[2020-03-19] MEDS: HYDROmorphone 2 MG/ML, 1ML IVPush PRN (21:23)
[2020-03-19] MEDS: ONDANSETRON 2MG/ML, 2ML IVPush PRN (23:10)
[2020-03-20] MEDS: HYDROmorphone 2 MG/ML, 1ML IVPush PRN ×5 (01:28→20:52)
[2020-03-20 02:00] VITALS: BP 135/79
[2020-03-20] MEDS ORDERED: EPINEPHRINE 1 MG/ML, 1ML ONE (06:59)
[2020-03-20] MEDS ORDERED: BUPIVACAINE/PF 0.25% ONE (06:59)
[2020-03-20 07:20] VITALS: BP 148/88
[2020-03-20] MEDS ORDERED: SUGAMMADEX 200 MG/2 ML IVPush ONE (07:56)
[2020-03-20] MEDS ORDERED: MIDAZOLAM 1 MG/ML, 2ML ONE (10:43)
[2020-03-20] MEDS ORDERED: FENTANYL PF 250 MCG/5ML ONE (10:43)
[2020-03-20] MEDS ORDERED: CHLORHEXIDINE 15 ML UDC MM ONE (11:30)
[2020-03-20] MEDS ORDERED: BUPIVACAINE/PF-EPI 0.25% 1:200K INFIL ONE (11:50)
[2020-03-20] MEDS ORDERED: MEPERIDINE/PF 25MG/0.5ML IVPush PRN (12:00)
[2020-03-20] MEDS ORDERED: KETOROLAC 30 MG/1 ML IV PRN (12:00)
[2020-03-20] MEDS ORDERED: PROMETHAZINE 25 MG/ML, 1ML IV PRN (12:00)
[2020-03-20] MEDS ORDERED: HYDROmorphone 2 MG/ML, 1ML IVPush PRN (12:00)
[2020-03-20] MEDS ORDERED: ALBUTEROL SULFATE 2.5 MG/3 ML NPPB PRN (12:00)
[2020-03-20] MEDS ORDERED: DIAZEPAM 5 MG/ML, 2ML IVPush PRN (12:00)
[2020-03-20] MEDS ORDERED: OXYcodone 5 MG/5 ML ORAL.SOL UDC PO PRN (12:00)
[2020-03-20] MEDS ORDERED: hydrALAzine 20 MG/ML, 1ML IV PRN (12:00)
[2020-03-20] MEDS ORDERED: LABETALOL 5MG/ML, 20ML IV PRN (12:00)
[2020-03-20] MEDS ORDERED: ACETAMINOPHEN 325 MG TABLET PO PRN (12:00)
[2020-03-20] MEDS ORDERED: ROCURONIUM 10MG/ML,5ML ONE (12:12)
[2020-03-20] MEDS ORDERED: ONDANSETRON 2MG/ML, 2ML ONE (12:12)
[2020-03-20] MEDS ORDERED: SUCCINYLCHOLINE 20 MG/ML, 10ML ONE (12:12)
[2020-03-20] MEDS ORDERED: GLYCOPYRROLATE 0.2MG/1ML, 5ML ONE (12:12)
[2020-03-20] MEDS ORDERED: PROPOFOL 10 MG/ML, 20ML ONE (12:12)
[2020-03-20] MEDS ORDERED: DEXAMETHASONE 4 MG/ML, 1ML ONE (12:12)
[2020-03-20] MEDS ORDERED: NEOSTIGMINE 1 MG/ML, 10ML ONE (12:12)
[2020-03-20] MEDS ORDERED: CEFAZOLIN 1,000 MG ONE (12:12)
[2020-03-20] MEDS ORDERED: FENTANYL PF 100 MCG/2ML ONE (13:11)
[2020-03-20] MEDS ORDERED: OXYcodone 5 MG/5 ML ORAL.SOL UDC ONE (13:12)
[2020-03-20] MEDS: FENTANYL PF 100 MCG/2ML IV PRN ×2 (13:15→13:21)
[2020-03-20 14:00] VITALS: BP 139/87
[2020-03-20] MEDS ORDERED: KETOROLAC 30 MG/1 ML IVPush PRN (17:00)
[2020-03-20] MEDS: ONDANSETRON 2MG/ML, 2ML IVPush PRN (18:22)
[2020-03-20] MEDS: D5%-0.45% NACL 1,000 ML IV SCH (18:23)
[2020-03-20] MEDS: OXYcodone/APAP 5/325MG TABLET PO PRN (18:28)
[2020-03-20 20:01] VITALS: BP 152/87
[2020-03-21 00:18] VITALS: BP 134/87
[2020-03-21] MEDS: OXYcodone/APAP 5/325MG TABLET PO PRN ×2 (00:38→06:33)
[2020-03-21] MEDS: HYDROmorphone 1 MG/ML, 1ML INJ IV PRN ×2 (02:48→09:01)
[2020-03-21] MEDS: D5%-0.45% NACL 1,000 ML IV SCH ×2 (02:50→09:25)
[2020-03-21 05:01] VITALS: BP 114/85
[2020-03-21] MEDS ORDERED: PANTOPRAZOLE 40MG TABLET PO SCH (06:00)
[2020-03-21 07:14] VITALS: BP 132/88
[2020-03-21] MEDS ORDERED: OXYC-302 PO (09:00)
== END 2020-03-21 10:57 | disposition home or self-care (01) | DRG 419 ==
LOC: ED 17:18 → INTOOBSV 19:28 → OBSVTOIN 19:28 → EDIP 19:28 → 4NE 21:08 → DCLOUNGE 03-21 10:43
PROVIDERS: ADMIT Surgery; ATTEND Surgery
PROC: 0FT44ZZ Resection of Gallbladder, Percutaneous Endoscopic Approach (ICD-10-PCS; principal; 2020-03-20 11:00)
DX: K80.00 Calculus of gallbladder with acute cholecystitis without obstruction (principal); I10 Essential (primary) hypertension; F17.200 Nicotine dependence, unspecified, uncomplicated; Z20.828 Contact with and (suspected) exposure to other viral communicable diseases; G89.29 Other chronic pain; Z72.89 Other problems related to lifestyle
CPT/HCPCS: 36415; 76700; 80053; 81001; 83690; 85025; 87635; 88304; 93005; 96374; 96375; 96376; G0378; J0171; J0690; J1100; J1170; J2250; J2405; J2704; J2710; J3010; J0330; J2270

== ENCOUNTER 2020-04-04 07:42 | Inpatient (IN) | payer MEDICAID ==
[~2020-04-04] VITALS: Ht 167.6 cm; Wt 94.7 kg
[~2020-04-04 07:42] MED LIST changes: +AMLO-211 PO; -AMLO10TA8 PO; +OXYC-302 PO
--- NOTE | 2020-04-04 07:58 | NUR ---
PT RESTING IN BED. PT ON HIS PHONE FREQUENTLY. PT CALM AND COOPERATIVE AT THIS TIME. WILL CONTINUE TO MONITOR.
[2020-04-04] MEDS ORDERED: ONDANSETRON 2MG/ML, 2ML IVPush ONE (08:00)
[2020-04-04] MEDS ORDERED: ONDANSETRON 2MG/ML, 2ML ONE (08:16)
[2020-04-04] MEDS ORDERED: LORazepam 2 MG/ML, 1ML ONE ×3 (08:17→12:46)
[2020-04-04] MEDS: LORazepam 2 MG/ML, 1ML IVPush PRN ×4 (08:20→13:11)
[2020-04-04 08:22] LABS: BASOPHILS % (AUTO) 0 % (0-1); EOSINOPHILS % (AUTO) 0 % (1-7); LYMPHOCYTES % (AUTO) 9 % (22-44); MEAN CORPUSCULAR HEMOGLOBIN 30.4 pg (27.5-34.5); MEAN CORPUSCULAR HGB CONC 33.2 g/dL (33.2-36.2); MEAN PLATELET VOLUME 7.3 fL (7.4-10.4); MONOCYTES % (AUTO) 4 % (2-9); NEUTROPHILS % (AUTO) 86 % (42-75); PLATELET COUNT 495 x10^3/uL (130-400); RED BLOOD COUNT 5.58 x10^6/uL (4.38-5.82); RED CELL DISTRIBUTION WIDTH 13.8 % (9.4-14.8)
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
[2020-04-04 08:38] LABS: ALANINE AMINOTRANSFERASE 110 U/L (12-78); ALBUMIN 4.3 g/dL (3.4-5.0); ANION GAP 18 mmol/L (5-15); CALCIUM 9.5 mg/dL (8.5-10.1); CHLORIDE 106 mmol/L (98-107); CREATININE 1.47 mg/dL (0.7-1.3)
[2020-04-04 08:40] LABS: ALKALINE PHOSPHATASE 147 U/L (45-117); BILIRUBIN,TOTAL 0.4 mg/dL (0.2-1.0); TOTAL PROTEIN 8.9 g/dL (6.4-8.2)
[2020-04-04] MEDS ORDERED: THIAMINE 100 MG in SODIUM CHLORIDE 0.9% 50 ML IVPB ONE (09:00)
[2020-04-04] MEDS ORDERED: ZIPRASIDONE 20 MG INJ IM ONE ×2 (09:00→09:08)
[2020-04-04] MEDS ORDERED: SODIUM CHLORIDE 0.9% 1,000ML IVBOLUS ONE (09:00)
[2020-04-04 09:04] LABS: MD SCAN
[2020-04-04] MEDS ORDERED: OMNIPAQUE 350 MG/ML, 100ML BOTTLE ONE (10:21)
[2020-04-04] MEDS ORDERED: ENOXAPARIN 40 MG/0.4 ML ONE (12:46)
[2020-04-04] MEDS ORDERED: LORazepam 2 MG/ML, 1ML IV PRN ×5 (13:00)
[2020-04-04] MEDS ORDERED: LORazepam 1MG TABLET PO PRN ×2 (13:00)
[2020-04-04] MEDS: ENOXAPARIN 40 MG/0.4 ML SQ SCH (13:00)
[2020-04-04] MEDS ORDERED: LORazepam 0.5MG TABLET PO PRN (13:00)
[2020-04-04] MEDS ORDERED: THIAMINE 200 MG, MVI ADULT 10 ML, FOLIC ACID 1 MG in D5%-0.9% NACL 1,000 ML IV SCH (14:00)
[2020-04-04 14:20] LABS: MICROSCOPIC INDICATED
--- NOTE | 2020-04-04 14:31 | NUR ---
REPORT GIVEN TO THERON LOVE
[2020-04-04 15:00] VITALS: BP 144/99
[2020-04-04] MEDS ORDERED: MAGNESIUM SULFATE PMX 2GM/50ML 50 ML IV ONE (16:00)
[2020-04-04] MEDS: CHLORDIAZEPOXIDE 25 MG CAPSULE PO SCH ×2 (16:06→20:25)
[2020-04-04] MEDS: MORPHINE SULFATE 4 MG/ML, 1ML IVPush PRN ×2 (18:39→22:50)
[2020-04-04 19:09] VITALS: BP 141/85
[2020-04-04] MEDS: ONDANSETRON 2MG/ML, 2ML IVPush PRN (20:25)
[2020-04-05 01:49] VITALS: BP 146/113
[2020-04-05] MEDS: MORPHINE SULFATE 4 MG/ML, 1ML IVPush PRN ×2 (03:47→08:51)
[2020-04-05] MEDS ORDERED: NICOTINE 21 MG/24 HR PATCH.TD24 TD SCH (05:00)
[2020-04-05 05:34] LABS: BASOPHILS % (AUTO) 1 % (0-1); EOSINOPHILS % (AUTO) 1 % (1-7); LYMPHOCYTES % (AUTO) 29 % (22-44); MEAN CORPUSCULAR HEMOGLOBIN 30.9 pg (27.5-34.5); MEAN CORPUSCULAR HGB CONC 33.9 g/dL (33.2-36.2); MEAN PLATELET VOLUME 7.5 fL (7.4-10.4); MONOCYTES % (AUTO) 12 % (2-9); NEUTROPHILS % (AUTO) 58 % (42-75); PLATELET COUNT 352 x10^3/uL (130-400); RED BLOOD COUNT 4.81 x10^6/uL (4.38-5.82); RED CELL DISTRIBUTION WIDTH 13.5 % (9.4-14.8)
[2020-04-05 05:38] LABS: MD NO
[2020-04-05 05:46] LABS: ALBUMIN 3.7 g/dL (3.4-5.0); ANION GAP 7 mmol/L (5-15); CHLORIDE 106 mmol/L (98-107)
[2020-04-05 05:50] LABS: ALANINE AMINOTRANSFERASE 82 U/L (12-78); ALKALINE PHOSPHATASE 127 U/L (45-117); BILIRUBIN,TOTAL 1.4 mg/dL (0.2-1.0); CALCIUM 8.8 mg/dL (8.5-10.1); CREATININE 1.01 mg/dL (0.7-1.3); TOTAL PROTEIN 7.7 g/dL (6.4-8.2)
[2020-04-05 06:24] VITALS: BP 149/98
[2020-04-05] MEDS ORDERED: PANTOPRAZOLE 40 MG IV IVPush SCH (07:30)
[2020-04-05] MEDS: CHLORDIAZEPOXIDE 25 MG CAPSULE PO SCH (08:53)
[2020-04-05] MEDS: ONDANSETRON 2MG/ML, 2ML IVPush PRN (10:30)
[2020-04-05 12:02] VITALS: BP 156/124
[2020-04-05] MEDS: ENOXAPARIN 40 MG/0.4 ML SQ SCH (12:53)
[2020-04-05 13:45] VITALS: BP 149/112
== END 2020-04-05 14:25 | disposition left against medical advice (07) | DRG 391 ==
LOC: ED 11:35 → EDIP 11:40 → 4WST 14:40
PROVIDERS: ADMIT Internal Medicine; ATTEND Internal Medicine
DX: K29.20 Alcoholic gastritis without bleeding (principal); N17.0 Acute kidney failure with tubular necrosis; F10.231 Alcohol dependence with withdrawal delirium; F11.23 Opioid dependence with withdrawal; F15.20 Other stimulant dependence, uncomplicated; D72.829 Elevated white blood cell count, unspecified; E83.42 Hypomagnesemia; E86.0 Dehydration; F17.200 Nicotine dependence, unspecified, uncomplicated; F32.9 Major depressive disorder, single episode, unspecified; F41.9 Anxiety disorder, unspecified; K76.0 Fatty (change of) liver, not elsewhere classified; Z53.29 Procedure and treatment not carried out because of patient's decision for other reasons
CPT/HCPCS: 36415; J7042; 71045; 74177; 80053; 80307; 81001; 83690; 83735; 84100; 85025; 93005; G0378; J1650; J2405; J3411; J3486; Q9967; C9113; J2060; J2270; J3475; J7030

== ENCOUNTER 2020-04-05 19:21 | Emergency (ER) | payer MEDICAID ==
[~2020-04-05] VITALS: Ht 167.6 cm; Wt 90.0 kg
--- NOTE | 2020-04-05 19:53 | NUR ---
ROOM SECURE, BELONGINGS X1 DUFFLE BAG SECURED, X1 HOSPITAL BAG WITH SHOES, TOP, SWEATS SECURE. SITTER IN LINE OF SITE. URINE SENT. LAB DRAWING BLOOD. PT REMAINS CALM, COOPERATIVE. WILL CONTINUE TO MONITOR.
[2020-04-05 20:17] LABS: AMPHETAMINE SCREEN, URINE Positive (Negative); BARBITURATE SCREEN, URINE Negative (Negative); BENZODIAZEPINE SCREEN, URINE Positive (Negative); CANNABINOID SCREEN, URINE Negative (Negative); COCAINE SCREEN, URINE Negative (Negative); METHADONE SCREEN, URINE Negative (Negative); OPIATE SCREEN, URINE Positive (Negative)
[2020-04-05 20:36] LABS: BASOPHILS % (AUTO) 1 % (0-1); EOSINOPHILS % (AUTO) 1 % (1-7); LYMPHOCYTES % (AUTO) 23 % (22-44); MEAN CORPUSCULAR HEMOGLOBIN 30.4 pg (27.5-34.5); MEAN CORPUSCULAR HGB CONC 33.4 g/dL (33.2-36.2); MEAN PLATELET VOLUME 7.3 fL (7.4-10.4); MONOCYTES % (AUTO) 10 % (2-9); NEUTROPHILS % (AUTO) 66 % (42-75); PLATELET COUNT 331 x10^3/uL (130-400); RED BLOOD COUNT 4.83 x10^6/uL (4.38-5.82); RED CELL DISTRIBUTION WIDTH 13.5 % (9.4-14.8)
[2020-04-05 20:38] LABS: MD NO
[2020-04-05 20:42] LABS: ALBUMIN 3.8 g/dL (3.4-5.0); ANION GAP 5 mmol/L (5-15); CALCIUM 9.2 mg/dL (8.5-10.1); CHLORIDE 105 mmol/L (98-107)
[2020-04-05 20:46] LABS: ALANINE AMINOTRANSFERASE 84 U/L (12-78); ALKALINE PHOSPHATASE 126 U/L (45-117); BILIRUBIN,TOTAL 1.1 mg/dL (0.2-1.0); CREATININE 1.08 mg/dL (0.7-1.3); TOTAL PROTEIN 7.9 g/dL (6.4-8.2)
[2020-04-05] MEDS ORDERED: NALOXONE 1 MG/ML, 2ML ONE (20:46)
[2020-04-05 20:52] LABS: SALICYLATE LEVEL < 1.7 mg/dL (2.8-20.0)
[2020-04-05 20:55] VITALS: BP 124/88
--- NOTE | 2020-04-05 20:55 | NUR ---
Pt wakes up with verbal/sternal rub. answers questions appropriatly states he would like to go to [facility]. VSS. requesting food. dr mcghee at bedside. Yari hernandez.
[2020-04-05] MEDS ORDERED: NALOXONE 1 MG/ML, 2ML IM ONE (21:00)
--- NOTE | 2020-04-05 21:29 | NUR ---
ALL BELONGINGS SECURED AND GIVEN BACK TO PT BY THIS SENIOR SOFTWARE ARCHITECT. VSS. PT WITH STEADY GAIT, SNACKS GIVEN TO PT WELL, TAXI VOUCHER. PT CLEAR DC TO GO TO [facility] PER DR JAIMES. PT TO RETURN TO ER IF CONCNERSN. PT DENIES ANY SI AT THIS TIME SAYS HE JUST WANTS TO GO TO [facility].
== END 2020-04-05 21:33 | disposition home or self-care (01) ==
LOC: ED 21:11
DX: F32.0 Major depressive disorder, single episode, mild (principal); F15.129 Other stimulant abuse with intoxication, unspecified; F11.129 Opioid abuse with intoxication, unspecified; R45.851 Suicidal ideations; Z91.14 Patient's other noncompliance with medication regimen; F17.210 Nicotine dependence, cigarettes, uncomplicated
CPT/HCPCS: 36415; 80053; 80307; 85025; 99283

== ENCOUNTER 2020-04-13 14:57 | Emergency (ER) | payer MEDICAID ==
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
[2020-04-13 15:11] VITALS: BP 133/85
--- NOTE | 2020-04-13 15:20 | NUR ---
PT REQUESTING DC OF RESTRAINTS. DISCUSSED SITUATION W/ PT; PT AGREED TO MAINTAIN CALM. RESTRAINTS REMOVED. URINAL PROVIDED
--- NOTE | 2020-04-13 15:35 | NUR ---
PT MOVED HIMSELF TO THE FLOOR, FACE DOWN; REFUSED TO GET UP. INFORMED PT THAT SECURITY WOULD BE CALLED IF HE DID NOT COMPLIED W/ INSTRUCTIONS; PT REFUSED; SECURITY CALLED. ADDITIONAL SOFT RESTRAINTS OBTAINED. SECURITY PLACED PT IN LEATHER RESTRAINTS X 4.
--- NOTE | 2020-04-13 15:45 | NUR ---
PT YELLING; STATES "I JUST WANT TO GO HOME" ACTUARY MANAGER CONSULTED.
[2020-04-13] MEDS ORDERED: OXYC-302 PO (15:53)
--- NOTE | 2020-04-13 15:58 | NUR ---
CALLED SECURITY FOR RELEASE OF RESTRAINTS; WAS INFORMED "THEY'LL BE THERE SOON THEY'RE AVAILABLE."
--- NOTE | 2020-04-13 16:02 | NUR ---
RESTRAINTS REMOVED. PT RIPPED IV OUT; DRESSING APPLIED.
--- NOTE | 2020-04-13 16:03 | NUR ---
PT ESCORTED TO ED ENTRANCE W/ SECURITY. PT'S GAIT STEADY.
== END 2020-04-13 16:06 | disposition left against medical advice (07) ==
LOC: ED 16:00
DX: R10.9 Unspecified abdominal pain (principal); Z53.21 Procedure and treatment not carried out due to patient leaving prior to being seen by health care provider

== ENCOUNTER 2020-04-17 08:37 | Emergency (ER) | payer MEDICAID ==
[~2020-04-17] VITALS: Ht 167.6 cm; Wt 83.7 kg
--- NOTE | 2020-04-17 08:47 | NUR ---
TASK RN NOTE: BIB [facility] FOR ABDOMINAL PAIN X2 DAYS. HX OF PANCREATITIS, ETOH TODAY. PT ASKS FOR "" WHO WAS ENCOURAGED BY NEMESIOSA TO TAKE TAXI HOME. LAST VISIT PT AND PT'S /GIRL FRIEND FOUGHT IN ED ROOM AND PRESENTED A SOCIAL ISSUE. PT ENCOURAGED TO REST AND REMAIN IN BED.
--- NOTE | 2020-04-17 08:55 | NUR ---
TASK RN NOTE: REPORT TO IVAN AMAYA. MASK PLACED ON PT.
[2020-04-17] MEDS ORDERED: FAMOTIDINE 20 MG TABLET PO ONE (09:30)
[2020-04-17] MEDS ORDERED: FAMOTIDINE 20 MG TABLET ONE (09:44)
[2020-04-17] MEDS ORDERED: MAALOX/HYOSCYAMINE/LIDOCAINE 45 ML BTL ONE (09:45)
[2020-04-17 09:48] LABS: ALBUMIN 3.8 g/dL (3.4-5.0); ANION GAP 14 mmol/L (5-15); CHLORIDE 108 mmol/L (98-107)
[2020-04-17 09:52] LABS: ALANINE AMINOTRANSFERASE 120 U/L (12-78); ALKALINE PHOSPHATASE 137 U/L (45-117); BILIRUBIN,TOTAL 0.2 mg/dL (0.2-1.0); TOTAL PROTEIN 8.3 g/dL (6.4-8.2)
--- NOTE | 2020-04-17 09:57 | NUR ---
PT MEDICATED PER MAR.
[2020-04-17] MEDS ORDERED: MAALOX/HYOSCYAMINE/LIDOCAINE 45 ML BTL PO ONE (10:00)
[2020-04-17 10:07] LABS: BASOPHILS % (AUTO) 1 % (0-1); EOSINOPHILS % (AUTO) 2 % (1-7); LYMPHOCYTES % (AUTO) 46 % (22-44); MEAN CORPUSCULAR HEMOGLOBIN 31.1 pg (27.5-34.5); MEAN CORPUSCULAR HGB CONC 33.9 g/dL (33.2-36.2); MEAN PLATELET VOLUME 7.4 fL (7.4-10.4); MONOCYTES % (AUTO) 9 % (2-9); NEUTROPHILS % (AUTO) 42 % (42-75); PLATELET COUNT 331 x10^3/uL (130-400); RED BLOOD COUNT 5.06 x10^6/uL (4.38-5.82); RED CELL DISTRIBUTION WIDTH 13.5 % (9.4-14.8)
[2020-04-17 10:27] LABS: MD NO
[2020-04-17] MEDS ORDERED: SUCRALFATE 1 GM/10 ML UDC PO SCH (11:00)
[2020-04-17 12:07] VITALS: BP 20/82
== END 2020-04-17 12:29 | disposition home or self-care (01) ==
LOC: ED 10:24
DX: K29.20 Alcoholic gastritis without bleeding (principal); F17.210 Nicotine dependence, cigarettes, uncomplicated; I10 Essential (primary) hypertension; Z90.49 Acquired absence of other specified parts of digestive tract
CPT/HCPCS: 36415; 80053; 82150; 83690; 85025; 99284; 99406

== ENCOUNTER 2020-05-21 14:42 | Emergency (ER) | payer MEDICAID ==
[~2020-05-21] VITALS: Ht 172.7 cm; Wt 87.8 kg
[2020-05-21 14:50] VITALS: BP 124/83
== END 2020-05-21 15:01 | disposition home or self-care (01) ==
LOC: ED 14:56
DX: I10 Essential (primary) hypertension (principal); Z76.0 Encounter for issue of repeat prescription; F17.210 Nicotine dependence, cigarettes, uncomplicated; Z90.49 Acquired absence of other specified parts of digestive tract
CPT/HCPCS: 99281; 99406

== ENCOUNTER 2020-05-29 11:35 | Emergency (ER) | payer MEDICAID ==
[~2020-05-29] VITALS: Ht 167.6 cm; Wt 102.2 kg
[2020-05-29 11:43] VITALS: BP 128/86
[2020-05-29] MEDS ORDERED: KETOROLAC 30 MG/1 ML IM ONE (12:00)
[2020-05-29] MEDS ORDERED: KETOROLAC 30 MG/1 ML ONE (12:06)
--- NOTE | 2020-05-29 12:24 | NUR ---
PT LIFTING AND WORK, PULLED AND STRAINED ABDOMEN. PAIN 8/10 MEDICATED W TORADOL
[2020-05-29 12:56] LABS: BASOPHILS % (AUTO) 1 % (0-1); EOSINOPHILS % (AUTO) 3 % (1-7); LYMPHOCYTES % (AUTO) 26 % (22-44); MEAN CORPUSCULAR HEMOGLOBIN 31.1 pg (27.5-34.5); MEAN CORPUSCULAR HGB CONC 33.4 g/dL (33.2-36.2); MEAN PLATELET VOLUME 8.2 fL (7.4-10.4); MONOCYTES % (AUTO) 11 % (2-9); NEUTROPHILS % (AUTO) 59 % (42-75); PLATELET COUNT 310 x10^3/uL (130-400); RED BLOOD COUNT 4.82 x10^6/uL (4.38-5.82); RED CELL DISTRIBUTION WIDTH 15.7 % (9.4-14.8)
[2020-05-29] MEDS ORDERED: HYDROcodone/APAP 5/325 TABLET ONE (12:58)
[2020-05-29 13:05] LABS: ALANINE AMINOTRANSFERASE 31 U/L (12-78); ALBUMIN 3.5 g/dL (3.4-5.0); ANION GAP 4 mmol/L (5-15); CALCIUM 9.1 mg/dL (8.5-10.1); CHLORIDE 107 mmol/L (98-107); CREATININE 0.97 mg/dL (0.7-1.3)
[2020-05-29 13:07] LABS: ALKALINE PHOSPHATASE 94 U/L (45-117); BILIRUBIN,TOTAL 0.2 mg/dL (0.2-1.0); TOTAL PROTEIN 7.7 g/dL (6.4-8.2)
[2020-05-29 13:16] LABS: MD NO
--- NOTE | 2020-05-29 13:49 | NUR ---
PT NOT IN ROOM. ELOPED
[2020-05-29] MEDS ORDERED: HYDROcodone/APAP 5/325 TABLET PO ONE (14:00)
== END 2020-05-29 13:51 | disposition left against medical advice (07) ==
LOC: ED 13:00
DX: S39.011A Strain of muscle, fascia and tendon of abdomen, initial encounter (principal); R10.84 Generalized abdominal pain; I49.3 Ventricular premature depolarization; R00.0 Tachycardia, unspecified; I10 Essential (primary) hypertension; Z90.49 Acquired absence of other specified parts of digestive tract; Z88.8 Allergy status to other drugs, medicaments and biological substances; X58.XXXA Exposure to other specified factors, initial encounter; Y93.89 Activity, other specified; Y92.89 Other specified places as the place of occurrence of the external cause; Y99.8 Other external cause status
CPT/HCPCS: 36415; 74021; 80053; 83690; 85025; 93005; 96372; 99285; J1885

== ENCOUNTER 2020-06-01 11:55 | Emergency (ER) | payer MEDICAID ==
[~2020-06-01] VITALS: Ht 167.6 cm; Wt 92.4 kg
[2020-06-01 11:57] VITALS: BP 141/83
[2020-06-01] MEDS ORDERED: QUET300T PO (12:06)
[2020-06-01] MEDS ORDERED: DIVA-61 PO (12:06)
[2020-06-01] MEDS ORDERED: SERT-238 PO (12:06)
[2020-06-01] MEDS ORDERED: LISI10TA2 PO (12:06)
--- NOTE | 2020-06-01 12:32 | NUR ---
Patient given discharge instructions and they have confirmed that they understand the instructions. Patient ambulatory with steady gait.
== END 2020-06-01 12:38 | disposition home or self-care (01) ==
LOC: ED 12:10
DX: F32.9 Major depressive disorder, single episode, unspecified (principal); I10 Essential (primary) hypertension; Z76.0 Encounter for issue of repeat prescription; F17.290 Nicotine dependence, other tobacco product, uncomplicated
CPT/HCPCS: 99281

== ENCOUNTER 2020-06-11 02:47 | Emergency (ER) | payer MEDICAID ==
[~2020-06-11] VITALS: Ht 167.6 cm; Wt 91.6 kg
[~2020-06-11 02:47] MED LIST changes: +DIVA-61 PO; +LISI10TA2 PO; +QUET300T PO; +SERT-238 PO
[2020-06-11] MEDS ORDERED: MORPHINE SULFATE 4 MG/ML, 1ML ONE ×4 (03:15→05:44)
[2020-06-11] MEDS ORDERED: ONDANSETRON 2MG/ML, 2ML ONE (03:15)
[2020-06-11] MEDS: MORPHINE SULFATE 4 MG/ML, 1ML IVPush PRN ×2 (03:23→04:30)
[2020-06-11] MEDS ORDERED: ONDANSETRON 2MG/ML, 2ML IVPush ONE (03:30)
[2020-06-11] MEDS ORDERED: SODIUM CHLORIDE 0.9% 1,000ML IVBOLUS ONE (03:30)
[2020-06-11 03:39] LABS: BASOPHILS % (AUTO) 1 % (0-1); EOSINOPHILS % (AUTO) 4 % (1-7); LYMPHOCYTES % (AUTO) 31 % (22-44); MEAN CORPUSCULAR HEMOGLOBIN 32.5 pg (27.5-34.5); MEAN CORPUSCULAR HGB CONC 35.4 g/dL (33.2-36.2); MEAN PLATELET VOLUME 7.6 fL (7.4-10.4); MONOCYTES % (AUTO) 10 % (2-9); NEUTROPHILS % (AUTO) 55 % (42-75); PLATELET COUNT 371 x10^3/uL (130-400); RED BLOOD COUNT 4.76 x10^6/uL (4.38-5.82); RED CELL DISTRIBUTION WIDTH 15.2 % (9.4-14.8)
[2020-06-11 03:44] LABS: MD NO
[2020-06-11 03:50] LABS: ALBUMIN 3.7 g/dL (3.4-5.0); ANION GAP 12 mmol/L (5-15); CALCIUM 8.5 mg/dL (8.5-10.1); CHLORIDE 105 mmol/L (98-107); CREATININE 1.23 mg/dL (0.7-1.3)
--- NOTE | 2020-06-11 03:52 | NUR ---
PATIENT STATES THAT HIS PAIN HAS RETURNED POST MEDICATION AND IS ASKING FOR ADDITIONAL DOSE(S) MD AWARE, NO ORDER RECEIVED AT THIS TIME.
[2020-06-11 03:59] LABS: ALKALINE PHOSPHATASE 131 U/L (45-117); BILIRUBIN,TOTAL 0.4 mg/dL (0.2-1.0)
[2020-06-11] MEDS ORDERED: PANTOPRAZOLE 40 MG IV IVPush ONE (04:00)
[2020-06-11] MEDS ORDERED: PANTOPRAZOLE 40 MG IV ONE (04:07)
[2020-06-11 04:25] LABS: ALANINE AMINOTRANSFERASE 42 U/L (12-78)
--- NOTE | 2020-06-11 04:43 | NUR ---
PATIENT STATES PAIN CONTROL MEASURES HAVE BEEN INEFFECTIVE, MD AWARE, NO NEW ORDER RECEIVED AT THIS TIME.
[2020-06-11] MEDS ORDERED: MORPHINE SULFATE 4 MG/ML, 1ML IVPush ONE (05:30)
[2020-06-11 06:29] VITALS: BP 134/79
== END 2020-06-11 06:31 | disposition home or self-care (01) ==
LOC: ED 04:56
DX: K29.20 Alcoholic gastritis without bleeding (principal); F15.129 Other stimulant abuse with intoxication, unspecified; F10.129 Alcohol abuse with intoxication, unspecified; R11.2 Nausea with vomiting, unspecified; R10.13 Epigastric pain; I10 Essential (primary) hypertension; F17.200 Nicotine dependence, unspecified, uncomplicated; Z72.9 Problem related to lifestyle, unspecified; Z90.49 Acquired absence of other specified parts of digestive tract; Z88.8 Allergy status to other drugs, medicaments and biological substances; Y90.9 Presence of alcohol in blood, level not specified
CPT/HCPCS: 36415; 80053; 80320; 83690; 85025; 96361; 96374; 96375; 96376; 99284; C9113; J2270; J2405; J7030; G0480

== ENCOUNTER 2020-06-12 08:55 | Emergency (ER) | payer MEDICAID ==
[~2020-06-12] VITALS: Ht 167.6 cm; Wt 92.3 kg
[2020-06-12] MEDS ORDERED: PROMETHAZINE 25 MG/ML, 1ML ONE (09:15)
[2020-06-12] MEDS ORDERED: FAMOTIDINE 20 MG/2 ML ONE (09:15)
[2020-06-12] MEDS ORDERED: MAALOX/HYOSCYAMINE/LIDOCAINE 45 ML BTL ONE (09:15)
[2020-06-12] MEDS ORDERED: FAMOTIDINE 20 MG/2 ML IVPush ONE (09:30)
[2020-06-12] MEDS ORDERED: MAALOX/HYOSCYAMINE/LIDOCAINE 45 ML BTL PO ONE (09:30)
[2020-06-12] MEDS ORDERED: PROMETHAZINE 25 MG/ML, 1ML IM ONE (09:30)
[2020-06-12] MEDS ORDERED: SODIUM CHLORIDE 0.9%, 500ML IVBOLUS ONE (09:30)
[2020-06-12 09:48] VITALS: BP 126/77
[2020-06-12] MEDS ORDERED: SUCRALFATE 1 GM TABLET PO SCH (11:00)
== END 2020-06-12 10:50 | disposition home or self-care (01) ==
LOC: ED 09:16
DX: K29.20 Alcoholic gastritis without bleeding (principal); F10.20 Alcohol dependence, uncomplicated; R11.2 Nausea with vomiting, unspecified; I10 Essential (primary) hypertension; Y90.9 Presence of alcohol in blood, level not specified
CPT/HCPCS: 96361; 96372; 96374; 99284; J2550; J7040

== ENCOUNTER 2020-06-14 01:33 | Emergency (ER) | payer MEDICAID ==
[~2020-06-14] VITALS: Ht 172.7 cm; Wt 93.0 kg
--- NOTE | 2020-06-14 01:33 | NUR ---
INITIAL PT CONTACT. PT BIBA C/O RUQ ABD PAIN DESCRIBED SHARP. ALSO C/O "COUGHING UP BLOOD". PT RECENTLY SEEN FOR SAME, HAD ENDOSCOPY DONE, NORMAL PER EMS AND PT. PT STATES HE HAS A HX OF PANCREATITIS FROM DRINKING AND THIS "FEELS SIMILAR". PT CONSUMED "ONE BEER TONIGHT WITH DINNER AND I HAVE REALLY CUT BACK ON DRINKING." 200 FENTANYL AND 4 ZOFRAN OUTREACH REPRESENTATIVE, "SOME RELIEF". PT SITTING UPRIGHT ON GURNEY, VSS. WARM BLANKET PROVIDED AND CONTINUOUS PULSE OX AND CARDIAC MONITORING IN PLACE. CALL LIGHT IN REACH. NO ADDITIONAL NEEDS AT THIS TIME. ERP AT BEDSIDE.
[2020-06-14] MEDS ORDERED: METOCLOPRAMIDE 5 MG/ML, 2ML ONE (01:57)
[2020-06-14] MEDS ORDERED: KETOROLAC 30 MG/1 ML ONE (01:58)
[2020-06-14] MEDS ORDERED: ONDANSETRON 2MG/ML, 2ML ONE (01:58)
[2020-06-14] MEDS ORDERED: KETOROLAC 30 MG/1 ML IVPush ONE (02:00)
[2020-06-14] MEDS ORDERED: ONDANSETRON 2MG/ML, 2ML IVPush ONE (02:00)
[2020-06-14] MEDS ORDERED: METOCLOPRAMIDE 5 MG/ML, 2ML IVPush ONE (02:00)
[2020-06-14] MEDS ORDERED: SODIUM CHLORIDE FLUSH 10ML SYR IVF ONE (02:00)
[2020-06-14 02:07] LABS: BASOPHILS % (AUTO) 1 % (0-1); EOSINOPHILS % (AUTO) 2 % (1-7); LYMPHOCYTES % (AUTO) 38 % (22-44); MEAN CORPUSCULAR HEMOGLOBIN 32.4 pg (27.5-34.5); MEAN CORPUSCULAR HGB CONC 34.8 g/dL (33.2-36.2); MEAN PLATELET VOLUME 7.5 fL (7.4-10.4); MONOCYTES % (AUTO) 10 % (2-9); NEUTROPHILS % (AUTO) 50 % (42-75); PLATELET COUNT 351 x10^3/uL (130-400); RED BLOOD COUNT 4.65 x10^6/uL (4.38-5.82); RED CELL DISTRIBUTION WIDTH 15.6 % (9.4-14.8)
[2020-06-14 02:09] LABS: MD NO
[2020-06-14 02:15] LABS: ALANINE AMINOTRANSFERASE 41 U/L (12-78); ALBUMIN 3.6 g/dL (3.4-5.0); ANION GAP 11 mmol/L (5-15); CALCIUM 8.9 mg/dL (8.5-10.1); CHLORIDE 107 mmol/L (98-107); CREATININE 1.13 mg/dL (0.7-1.3)
[2020-06-14 02:17] LABS: ALKALINE PHOSPHATASE 113 U/L (45-117); BILIRUBIN,TOTAL 0.3 mg/dL (0.2-1.0); TOTAL PROTEIN 8.1 g/dL (6.4-8.2)
--- NOTE | 2020-06-14 02:32 | NUR ---
PT AMBULATORY WITH STEADY GAIT TO BATHROOM. PT DENIES ANY ADDITIONAL NEEDS AT THIS TIME. CALL LIGHT AND PERSONAL BELONGINGS WITHIN REACH
[2020-06-14] MEDS ORDERED: FAMOTIDINE 20 MG/2 ML ONE (03:14)
[2020-06-14] MEDS ORDERED: ALUMINUM/MAG/SIMETHICONE 30 ML UDC ONE (03:14)
[2020-06-14] MEDS ORDERED: ALUMINUM/MAG/SIMETHICONE 30 ML UDC PO ONE (03:30)
[2020-06-14] MEDS ORDERED: FAMOTIDINE 20 MG/2 ML IVPush ONE (03:30)
[2020-06-14 03:35] VITALS: BP 138/72
--- NOTE | 2020-06-14 03:35 | NUR ---
Patient given discharge instructions and they have confirmed that they understand the instructions. Patient ambulatory with steady gait.
== END 2020-06-14 03:37 | disposition home or self-care (01) ==
LOC: ED 02:17
DX: K29.21 Alcoholic gastritis with bleeding (principal); R11.2 Nausea with vomiting, unspecified; F10.229 Alcohol dependence with intoxication, unspecified; R05 Cough; F17.210 Nicotine dependence, cigarettes, uncomplicated
CPT/HCPCS: 36415; 71045; 80053; 80320; 83690; 85025; 96374; 96375; 99284; 99406; J1885; J2405; J2765; G0480

== ENCOUNTER 2020-06-18 09:38 | Emergency (ER) | payer MEDICAID ==
[~2020-06-18] VITALS: Ht 167.6 cm; Wt 92.5 kg
[~2020-06-18 09:38] MED LIST changes: -OXYC-302 PO; +OXYC1TAB14 PO
--- NOTE | 2020-06-18 09:45 | NUR ---
Mariza abdi in [facility] - 06/18/20 at 0945 by ABDI RESTING HARRIS CABRERA IN THE [facility]
--- NOTE | 2020-06-18 09:48 | NUR ---
Task RN: Pt given vomit bag. Resting in bed, on phone.
[2020-06-18] MEDS ORDERED: METOCLOPRAMIDE 5 MG/ML, 2ML IVPush ONE (10:30)
[2020-06-18] MEDS ORDERED: FAMOTIDINE 20 MG/2 ML IV ONE (10:30)
[2020-06-18] MEDS ORDERED: SODIUM CHLORIDE 0.9% 1,000ML IVBOLUS ONE (10:30)
[2020-06-18] MEDS ORDERED: ONDANSETRON 2MG/ML, 2ML IVPush ONE (10:30)
[2020-06-18] MEDS ORDERED: THIAMINE 100 MG in SODIUM CHLORIDE 0.9% 50 ML IVPB ONE (10:30)
[2020-06-18] MEDS ORDERED: METOCLOPRAMIDE 5 MG/ML, 2ML ONE (10:57)
[2020-06-18] MEDS ORDERED: ONDANSETRON 2MG/ML, 2ML ONE (10:57)
[2020-06-18] MEDS ORDERED: FAMOTIDINE 20 MG/2 ML ONE (10:57)
[2020-06-18 11:20] LABS: ALANINE AMINOTRANSFERASE 100 U/L (12-78); ALBUMIN 3.8 g/dL (3.4-5.0); ANION GAP 9 mmol/L (5-15); CALCIUM 8.6 mg/dL (8.5-10.1); CHLORIDE 110 mmol/L (98-107)
[2020-06-18 11:22] LABS: ALKALINE PHOSPHATASE 109 U/L (45-117); BILIRUBIN,TOTAL 0.3 mg/dL (0.2-1.0); TOTAL PROTEIN 8.2 g/dL (6.4-8.2)
[2020-06-18 11:25] LABS: BASOPHILS % (AUTO) 1 % (0-1); EOSINOPHILS % (AUTO) 0 % (1-7); LYMPHOCYTES % (AUTO) 33 % (22-44); MD NO; MEAN CORPUSCULAR HEMOGLOBIN 31.6 pg (27.5-34.5); MEAN CORPUSCULAR HGB CONC 33.8 g/dL (33.2-36.2); MEAN PLATELET VOLUME 7.5 fL (7.4-10.4); MONOCYTES % (AUTO) 8 % (2-9); NEUTROPHILS % (AUTO) 58 % (42-75); PLATELET COUNT 366 x10^3/uL (130-400); RED BLOOD COUNT 5.09 x10^6/uL (4.38-5.82); RED CELL DISTRIBUTION WIDTH 16.2 % (9.4-14.8)
[2020-06-18 11:28] VITALS: BP 145/90
[2020-06-18] MEDS ORDERED: KETOROLAC 30 MG/1 ML ONE (11:33)
[2020-06-18] MEDS ORDERED: MAALOX/HYOSCYAMINE/LIDOCAINE 45 ML BTL ONE (11:33)
[2020-06-18] MEDS ORDERED: KETOROLAC 30 MG/1 ML IVPush ONE (12:00)
[2020-06-18] MEDS ORDERED: MAALOX/HYOSCYAMINE/LIDOCAINE 45 ML BTL PO ONE (12:00)
== END 2020-06-18 12:09 | disposition home or self-care (01) ==
LOC: ED 09:50
DX: F10.239 Alcohol dependence with withdrawal, unspecified (principal); R11.2 Nausea with vomiting, unspecified; I10 Essential (primary) hypertension; Y90.9 Presence of alcohol in blood, level not specified
CPT/HCPCS: 36415; 80053; 80320; 83690; 85025; 96365; 96375; 99284; J1885; J2405; J2765; J3411; J7030; G0480

== ENCOUNTER 2020-06-19 16:05 | Emergency (ER) | payer MEDICAID ==
[~2020-06-19] VITALS: Ht 172.7 cm; Wt 95.5 kg
[2020-06-19 17:18] VITALS: BP 136/87
[2020-06-19] MEDS ORDERED: ONDANSETRON 2MG/ML, 2ML IVPush ONE (17:30)
[2020-06-19 17:41] LABS: BASOPHILS % (AUTO) 1 % (0-1); EOSINOPHILS % (AUTO) 1 % (1-7); LYMPHOCYTES % (AUTO) 37 % (22-44); MEAN CORPUSCULAR HEMOGLOBIN 31.8 pg (27.5-34.5); MEAN CORPUSCULAR HGB CONC 34.2 g/dL (33.2-36.2); MEAN PLATELET VOLUME 7.1 fL (7.4-10.4); MONOCYTES % (AUTO) 7 % (2-9); NEUTROPHILS % (AUTO) 54 % (42-75); PLATELET COUNT 344 x10^3/uL (130-400); RED BLOOD COUNT 4.88 x10^6/uL (4.38-5.82); RED CELL DISTRIBUTION WIDTH 15.9 % (9.4-14.8)
[2020-06-19 17:43] LABS: MD NO
[2020-06-19 17:52] LABS: ALANINE AMINOTRANSFERASE 70 U/L (12-78); ALBUMIN 3.8 g/dL (3.4-5.0); ANION GAP 8 mmol/L (5-15); CALCIUM 8.3 mg/dL (8.5-10.1); CHLORIDE 104 mmol/L (98-107); CREATININE 1.11 mg/dL (0.7-1.3)
[2020-06-19 17:55] LABS: ALKALINE PHOSPHATASE 102 U/L (45-117); BILIRUBIN,TOTAL 0.3 mg/dL (0.2-1.0)
--- NOTE | 2020-06-19 18:23 | NUR ---
CALL CENTER SUPPORT REPRESENTATIVE: PT LEFT, WAS AGGRESSIVE TOWARD THIS RN, HE WENT INTO ANOTHER PATIENTS ROOM, PT LEFT WITH GIRLFRIEND
== END 2020-06-19 18:28 | disposition home or self-care (01) ==
LOC: ED 18:02
DX: K70.10 Alcoholic hepatitis without ascites (principal); F10.120 Alcohol abuse with intoxication, uncomplicated; R10.31 Right lower quadrant pain; R11.2 Nausea with vomiting, unspecified; I10 Essential (primary) hypertension; Z90.49 Acquired absence of other specified parts of digestive tract; Y90.9 Presence of alcohol in blood, level not specified
CPT/HCPCS: 36415; 80053; 83690; 85025; 99283

== ENCOUNTER 2020-06-24 04:03 | Emergency (ER) | payer MEDICAID ==
[~2020-06-24] VITALS: Ht 167.6 cm; Wt 92.0 kg
[2020-06-24 04:07] VITALS: BP 151/99
[2020-06-24 04:30] LABS: BASOPHILS % (AUTO) 1 % (0-1); EOSINOPHILS % (AUTO) 3 % (1-7); LYMPHOCYTES % (AUTO) 46 % (22-44); MEAN CORPUSCULAR HGB CONC 35.3 g/dL (33.2-36.2); MEAN PLATELET VOLUME 7.7 fL (7.4-10.4); MONOCYTES % (AUTO) 9 % (2-9); NEUTROPHILS % (AUTO) 41 % (42-75); PLATELET COUNT 272 x10^3/uL (130-400); RED BLOOD COUNT 4.45 x10^6/uL (4.38-5.82); RED CELL DISTRIBUTION WIDTH 15.2 % (9.4-14.8)
[2020-06-24] MEDS ORDERED: MAALOX/HYOSCYAMINE/LIDOCAINE 45 ML BTL PO ONE ×2 (04:30)
[2020-06-24 04:31] LABS: MD NO
[2020-06-24 04:41] LABS: ALBUMIN 3.7 g/dL (3.4-5.0); ANION GAP 11 mmol/L (5-15); CALCIUM 8.5 mg/dL (8.5-10.1); CHLORIDE 107 mmol/L (98-107)
[2020-06-24 04:44] LABS: ALANINE AMINOTRANSFERASE 71 U/L (12-78); ALKALINE PHOSPHATASE 149 U/L (45-117); BILIRUBIN,TOTAL 0.3 mg/dL (0.2-1.0); CREATININE 0.96 mg/dL (0.7-1.3); TOTAL PROTEIN 7.7 g/dL (6.4-8.2)
[2020-06-24] MEDS ORDERED: MAALOX/HYOSCYAMINE/LIDOCAINE 45 ML BTL ONE (04:53)
== END 2020-06-24 05:15 | disposition home or self-care (01) ==
LOC: ED 05:08
DX: K29.20 Alcoholic gastritis without bleeding (principal); F10.10 Alcohol abuse, uncomplicated; R11.2 Nausea with vomiting, unspecified; I10 Essential (primary) hypertension; F17.210 Nicotine dependence, cigarettes, uncomplicated; Z90.49 Acquired absence of other specified parts of digestive tract; Y90.9 Presence of alcohol in blood, level not specified
CPT/HCPCS: 36415; 80053; 83690; 85025; 99283; 99406

== ENCOUNTER 2020-07-02 14:14 | Emergency (ER) | payer MEDICAID ==
[~2020-07-02] VITALS: Ht 167.6 cm; Wt 80.0 kg
[~2020-07-02 14:14] MED LIST changes: -FOLI-17 PO; +FOLI1TAB32 PO; +LISI10TA19 PO; -LISI10TA2 PO
--- NOTE | 2020-07-02 14:24 | NUR ---
Pt brought in by [facility] for chief complaint of chest pain starting 6 hrs ago. Pt admits to ETOH & METH use today. PT is alert and oriented, able to speak full sentances. [employer]DC[employer] TE[employer]ER 324 mg ASA administered
[2020-07-02] MEDS ORDERED: SODIUM CHLORIDE FLUSH 10ML SYR IVF ONE (14:30)
[2020-07-02] MEDS ORDERED: SODIUM CHLORIDE 0.9% 1,000ML IVBOLUS ONE (14:30)
[2020-07-02 15:03] LABS: BASOPHILS % (AUTO) 1 % (0-1); EOSINOPHILS % (AUTO) 0 % (1-7); LYMPHOCYTES % (AUTO) 15 % (22-44); MEAN CORPUSCULAR HEMOGLOBIN 32.4 pg (27.5-34.5); MEAN CORPUSCULAR HGB CONC 34.3 g/dL (33.2-36.2); MEAN PLATELET VOLUME 7.9 fL (7.4-10.4); MONOCYTES % (AUTO) 13 % (2-9); NEUTROPHILS % (AUTO) 71 % (42-75); PLATELET COUNT 338 x10^3/uL (130-400); RED BLOOD COUNT 4.74 x10^6/uL (4.38-5.82); RED CELL DISTRIBUTION WIDTH 15.2 % (9.4-14.8)
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
[2020-07-02 15:08] LABS: ALANINE AMINOTRANSFERASE 49 U/L (12-78); ALBUMIN 4.1 g/dL (3.4-5.0); ANION GAP 15 mmol/L (5-15); CALCIUM 9.4 mg/dL (8.5-10.1); CHLORIDE 103 mmol/L (98-107)
[2020-07-02 15:12] LABS: ALKALINE PHOSPHATASE 93 U/L (45-117); BILIRUBIN,TOTAL 0.5 mg/dL (0.2-1.0); TOTAL PROTEIN 8.9 g/dL (6.4-8.2); TROPONIN I < 0.015 ng/mL (0.000-0.045)
[2020-07-02 15:35] LABS: MD SCAN
[2020-07-02] MEDS ORDERED: LORazepam 2 MG/ML, 1ML ONE (15:46)
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
[2020-07-02] MEDS ORDERED: LORazepam 2 MG/ML, 1ML IVPush ONE (16:00)
--- NOTE | 2020-07-02 16:20 | NUR ---
Pt more relaxed, awake and remains paranoid but states he feels less skaky and able to be redirected to bed to lay down. IVF completed and IV site flushed/benign.
[2020-07-02] MEDS ORDERED: IBUPROFEN 600 MG TABLET ONE (17:10)
--- NOTE | 2020-07-02 17:15 | NUR ---
Pt medication provided PO for continued c/o pain. Pt IV already d/c'd as per MD request. Pt waiting for d/c paperwork and ride from .
[2020-07-02] MEDS ORDERED: IBUPROFEN 200 MG TABLET PO ONE (17:30)
[2020-07-02 17:34] VITALS: BP 124/84
--- NOTE | 2020-07-02 17:35 | NUR ---
Pt escorted to d/c desk without gait disturbance noted. Remains calm and cooperative, thankful for care provided and states his is on her way to come pick him up now.
== END 2020-07-02 17:37 | disposition home or self-care (01) ==
LOC: ED 14:54
DX: R07.89 Other chest pain (principal); R00.0 Tachycardia, unspecified; F10.10 Alcohol abuse, uncomplicated; F15.10 Other stimulant abuse, uncomplicated; I10 Essential (primary) hypertension; Z72.9 Problem related to lifestyle, unspecified; Y90.9 Presence of alcohol in blood, level not specified
CPT/HCPCS: 36415; 71045; 80053; 83690; 84484; 85025; 93005; 96361; 96374; 99285; J2060; J7030

== ENCOUNTER 2020-07-05 21:51 | Emergency (ER) | payer MEDICAID ==
[~2020-07-05] VITALS: Ht 177.8 cm; Wt 90.0 kg
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
--- NOTE | 2020-07-05 22:49 | NUR ---
PT RESTING ON GURNEY, NAD, NO CHANGE IN CONDITION, EYES CLOSED, EVEN AND UNLABORED RESPIRATIONS. BED IN LOWEST, CALL LIGHT ON LAP, RAILS ENGAGED, WCTM.
--- NOTE | 2020-07-05 23:43 | NUR ---
PT RESTING ON GURNEY, NAD, NO CHANGE IN CONDITION, EYES CLOSED, EVEN AND UNLABORED RESPIRATIONS. CT COMPLETE, WAITING FOR READ. BED IN LOWEST, CALL LIGHT ON LAP, RAILS ENGAGED, WCTM.
[2020-07-05 23:44] VITALS: BP 107/68
--- NOTE | 2020-07-06 01:03 | NUR ---
PT NAD, DENIES ADDITIONAL NEEDS, RESTING COMFORTABLY, EVEN AND UNLABORED RESPIRATIONS, BED IN LOWEST, RAILS ENGAGED, CALL LIGHT ON LAP. WCTM. BEDSIDE REPORT TO HERBERTH LOVE, PT CARE TRANSFERRED AT THIS TIME.
== END 2020-07-06 02:15 | disposition home or self-care (01) ==
LOC: ED 07-06 01:20
DX: G40.909 Epilepsy, unspecified, not intractable, without status epilepticus (principal); I10 Essential (primary) hypertension
CPT/HCPCS: 70450; 99284

== ENCOUNTER 2020-07-22 04:00 | Emergency (ER) | payer MEDICAID ==
[~2020-07-22] VITALS: Ht 167.6 cm; Wt 93.0 kg
--- NOTE | 2020-07-22 04:31 | NUR ---
Pt BIB with c/o CP. Pt states he was trying to sleep, and developed chest pain and heaviness. Pt radiates to right chest and is worse with deep breath. Pt with no Nausea or diaphoresis. Pt states he has been drug free for the last 2 weeks. EMS gave pt 324 of ASA and 1 NTG with minimal relief. Pt on monitor, EKG done. IV placed CAMPAIGN COORDINATOR by EMS. Wam blanket given. Will monitor.
[2020-07-22] MEDS ORDERED: SODIUM CHLORIDE FLUSH 10ML SYR IVF ONE (05:00)
[2020-07-22] MEDS ORDERED: KETOROLAC 30 MG/1 ML IVPush ONE (05:00)
[2020-07-22] MEDS ORDERED: KETOROLAC 30 MG/1 ML ONE (05:09)
--- NOTE | 2020-07-22 05:16 | NUR ---
pt medicated per order. Pt denies any needs at this time. Will monitor. VSS.
[2020-07-22 05:18] LABS: ALBUMIN 3.6 g/dL (3.4-5.0); ANION GAP 8 mmol/L (5-15); CHLORIDE 109 mmol/L (98-107); CREATININE 1.19 mg/dL (0.7-1.3)
[2020-07-22 05:20] LABS: BASOPHILS % (AUTO) 1 % (0-1); EOSINOPHILS % (AUTO) 1 % (1-7); LYMPHOCYTES % (AUTO) 16 % (22-44); MEAN CORPUSCULAR HEMOGLOBIN 32.7 pg (27.5-34.5); MEAN CORPUSCULAR HGB CONC 34.2 g/dL (33.2-36.2); MEAN PLATELET VOLUME 8.1 fL (7.4-10.4); MONOCYTES % (AUTO) 9 % (2-9); NEUTROPHILS % (AUTO) 73 % (42-75); PLATELET COUNT 430 x10^3/uL (130-400); RED BLOOD COUNT 4.43 x10^6/uL (4.38-5.82); RED CELL DISTRIBUTION WIDTH 14.3 % (9.4-14.8)
[2020-07-22 05:23] LABS: TROPONIN I < 0.015 ng/mL (0.000-0.045)
--- NOTE | 2020-07-22 05:44 | NUR ---
TASK RN: PT TO IMAGING AT THIS TIME
[2020-07-22 06:06] LABS: MD SCAN
--- NOTE | 2020-07-22 06:22 | NUR ---
Pt states having right chest and right shoulder pain. Pt states toladol did not help. VSS. Will monitor.
[2020-07-22] MEDS ORDERED: SODIUM CHLORIDE 0.9% 1,000ML IVBOLUS ONE (06:30)
[2020-07-22] MEDS ORDERED: SODIUM CHLORIDE 0.9% 1,000 ML IV ONE (06:30)
[2020-07-22] MEDS ORDERED: ACETAMINOPHEN 325 MG TABLET ONE (06:40)
[2020-07-22] MEDS ORDERED: ACETAMINOPHEN 325 MG TABLET PO ONE (07:00)
--- NOTE | 2020-07-22 07:01 | NUR ---
report to bienvenido angle furnaceman of care, all questions addressed at this time. pt amb to restroom at this time steady gait.
[2020-07-22 07:06] VITALS: BP 98/70
--- NOTE | 2020-07-22 07:07 | NUR ---
PATIENT DISCHARGE REVIEWED. TAXI VOUCHER GIVEN TO GET HOME. STATES FEELS IMPROVED.
== END 2020-07-22 07:08 | disposition home or self-care (01) ==
LOC: ED 05:40
DX: R07.89 Other chest pain (principal); I10 Essential (primary) hypertension; F17.290 Nicotine dependence, other tobacco product, uncomplicated
CPT/HCPCS: 36415; 71045; 73030; 80048; 82040; 83880; 84484; 85025; 93005; 96374; 99285; J1885

== ENCOUNTER 2020-08-05 02:38 | Emergency (ER) | payer MEDICAID ==
[~2020-08-05] VITALS: Ht 167.6 cm; Wt 93.6 kg
--- NOTE | 2020-08-05 02:59 | NUR ---
Pt to ER with c/o right sided facial swelling, ST, difficulty swallowing, not being able to eat for 1 day. Pt to room. Will monitor.
[2020-08-05] MEDS ORDERED: IBUPROFEN 800 MG TABLET ONE (03:25)
[2020-08-05] MEDS ORDERED: DEXAMETHASONE 4 MG TABLET ONE (03:25)
[2020-08-05] MEDS ORDERED: DEXAMETHASONE 4 MG TABLET PO ONE (03:30)
[2020-08-05] MEDS ORDERED: IBUPROFEN 800 MG TABLET PO ONE (03:30)
--- NOTE | 2020-08-05 03:30 | NUR ---
Pt medicated per order. Warm blanket given. Will monitor.
[2020-08-05 03:44] VITALS: BP 107/69
== END 2020-08-05 04:02 | disposition home or self-care (01) ==
LOC: ED 03:57
DX: L04.0 Acute lymphadenitis of face, head and neck (principal); J02.9 Acute pharyngitis, unspecified; R00.0 Tachycardia, unspecified; I10 Essential (primary) hypertension; F17.210 Nicotine dependence, cigarettes, uncomplicated; Z90.49 Acquired absence of other specified parts of digestive tract
CPT/HCPCS: 93005; 99283; 99406

== ENCOUNTER 2020-08-11 08:41 | Emergency (ER) | payer MEDICAID ==
[~2020-08-11] VITALS: Ht 167.6 cm; Wt 96.0 kg
--- NOTE | 2020-08-11 08:50 | NUR ---
ERMD AT BEDSIDE FOR EVALUATION.
--- NOTE | 2020-08-11 08:53 | NUR ---
PATIENT BIB EMS FROM [facility] WITH CHIEF C/O CP, SOB, AND ABD PAIN. PATIENT AT [facility] YESTERDAY AND DIAGNOSED WITH PNEUMONIA, SENT HOME WITH ABX. PER EMS PATIENT HAS HISTORY OF PANCREATITIS, DRUG USE AND ETOH. PATIENT REPORTS BEING CLEAN X2 MONTHS. 20 GAUGE IV STARTED RIGHT FOREARM EN ROUTE AND 100 MCG FENTANYL GIVEN EN ROUTE. HR 130S IN AMBULANCE, 12-LEAD NEGATIVE PER EMS. UPON ASSESSMENT PATIENT IS BREATHING RAPIDLY AND SHALLOW, O2 95% ON RA, ABD DISTENDED AND FIRM. PER PATIENT LAST DRINK 2 MONTHS AGO. HR 130'S, OTHER VSS, CALL LIGHT WITHIN REACH.
[2020-08-11] MEDS ORDERED: SODIUM CHLORIDE FLUSH 10ML SYR IVF ONE (09:00)
[2020-08-11] MEDS ORDERED: ASPIRIN 81 MG TABLET CHEW PO ONE (09:00)
[2020-08-11] MEDS ORDERED: KETOROLAC 30 MG/1 ML IVPush ONE (09:00)
[2020-08-11] MEDS ORDERED: ASPIRIN 81 MG TABLET CHEW ONE (09:05)
[2020-08-11] MEDS ORDERED: KETOROLAC 30 MG/1 ML ONE (09:05)
[2020-08-11 09:20] LABS: BASOPHILS % (AUTO) 0 % (0-1); EOSINOPHILS % (AUTO) 2 % (1-7); LYMPHOCYTES % (AUTO) 6 % (22-44); MEAN CORPUSCULAR HEMOGLOBIN 32.1 pg (27.5-34.5); MEAN CORPUSCULAR HGB CONC 33.4 g/dL (33.2-36.2); MEAN PLATELET VOLUME 7.6 fL (7.4-10.4); MONOCYTES % (AUTO) 7 % (2-9); NEUTROPHILS % (AUTO) 85 % (42-75); PLATELET COUNT 393 x10^3/uL (130-400); RED BLOOD COUNT 4.44 x10^6/uL (4.38-5.82); RED CELL DISTRIBUTION WIDTH 13.6 % (9.4-14.8)
[2020-08-11 09:22] LABS: MD NO
--- NOTE | 2020-08-11 09:23 | NUR ---
URINE SAMPLE COLLECTED AND SENT TO LAB.
[2020-08-11 09:27] LABS: ALANINE AMINOTRANSFERASE 19 U/L (12-78); ALBUMIN 3.5 g/dL (3.4-5.0); ANION GAP 6 mmol/L (5-15); CALCIUM 8.9 mg/dL (8.5-10.1); CHLORIDE 101 mmol/L (98-107); CREATININE 1.79 mg/dL (0.7-1.3)
[2020-08-11 09:32] LABS: ALKALINE PHOSPHATASE 72 U/L (45-117); BILIRUBIN,TOTAL 0.3 mg/dL (0.2-1.0); TROPONIN I < 0.015 ng/mL (0.000-0.045)
[2020-08-11 09:45] LABS: AMPHETAMINE SCREEN, URINE Negative (Negative); BARBITURATE SCREEN, URINE Negative (Negative); BENZODIAZEPINE SCREEN, URINE Negative (Negative); CANNABINOID SCREEN, URINE Negative (Negative); COCAINE SCREEN, URINE Negative (Negative); METHADONE SCREEN, URINE Negative (Negative); OPIATE SCREEN, URINE Negative (Negative)
--- NOTE | 2020-08-11 09:47 | NUR ---
MEDICATION REQUESTED FROM PHARMACY.
--- NOTE | 2020-08-11 09:54 | NUR ---
TUBE SYSTEM NOT WORKING, SPOKE WITH ANGELIKA IN PHARMACY, WILL SEND MEDICATION.
[2020-08-11 10:00] VITALS: BP 130/71
[2020-08-11] MEDS ORDERED: METHOCARBAMOL 1,000 MG in DEXTROSE 5% 100 ML IV ONE (10:00)
--- NOTE | 2020-08-11 10:09 | NUR ---
TASK RN: PT DECLINING ROBAXIN ORDERED. STATES IF THAT IS ALL THAT THE MD INTENDS TO GIVE FOR HIS PAIN THAT HE WANTS HIS IV OUT AND WANTS TO LEAVE. MADE AWARE. IV DISCONTINUED. PT ON PHONE CALLING FOR RIDE. MADE AWARE.
--- NOTE | 2020-08-11 10:19 | NUR ---
PT NOT WAITING FOR DISCHARGE, AMBULATED TO DISCHARGE WINDOW, STEADY GAIT
== END 2020-08-11 10:23 | disposition home or self-care (01) ==
LOC: ED 10:12
DX: R07.89 Other chest pain (principal); R00.0 Tachycardia, unspecified; D72.829 Elevated white blood cell count, unspecified; I10 Essential (primary) hypertension; F17.200 Nicotine dependence, unspecified, uncomplicated; Z90.49 Acquired absence of other specified parts of digestive tract
CPT/HCPCS: 36415; 71045; 80053; 80307; 83690; 83880; 84484; 85025; 85379; 93005; 96374; 99285; J1885

== ENCOUNTER 2020-08-25 19:19 | Emergency (ER) | payer MEDICAID ==
[~2020-08-25] VITALS: Ht 167.6 cm; Wt 91.8 kg
--- NOTE | 2020-08-25 20:12 | NUR ---
PT STATES HES BEEN ADMITTED TO HOSPITAL X2 IN THE LAST 2 WEEKS FOR PNA AND BACTEREMIA. PT STATES HE WAS CLEARED FOR DC BOTH TIMES BECUASE HE WANTED TO GO TO WORK, BUT NEVER ACTUALLY FELT WELL ENOUGH TO LEAVE THE HOSPITAL. PT STATES HE WENT OUT THIS MORNING FROM [facility] BUT STATES THAT HES BEEN HAVING BACK PAIN AND HAS BEEN UNABLE TO EAT FOR THE LAST 4 DAYS. 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
[2020-08-25] MEDS ORDERED: SODIUM CHLORIDE 0.9% 1,000ML IVBOLUS ONE (20:30)
[2020-08-25] MEDS ORDERED: MORPHINE SULFATE 4 MG/ML, 1ML ONE ×3 (20:47→22:33)
[2020-08-25 20:49] LABS: HCT (SEDRATE) 32.1 % (39.2-51.8)
[2020-08-25 20:50] LABS: MEAN CORPUSCULAR HEMOGLOBIN 31.9 pg (27.5-34.5); MEAN CORPUSCULAR HGB CONC 33.2 g/dL (33.2-36.2); MEAN PLATELET VOLUME 7.3 fL (7.4-10.4); PLATELET COUNT 579 x10^3/uL (130-400); RED BLOOD COUNT 3.35 x10^6/uL (4.38-5.82); RED CELL DISTRIBUTION WIDTH 14.5 % (9.4-14.8)
[2020-08-25] MEDS: MORPHINE SULFATE 4 MG/ML, 1ML IVPush PRN ×2 (20:52→22:04)
[2020-08-25 20:55] LABS: MD YES
[2020-08-25 21:02] LABS: ANION GAP 6 mmol/L (5-15); CALCIUM 9.1 mg/dL (8.5-10.1); CHLORIDE 107 mmol/L (98-107); CREATININE 1.16 mg/dL (0.7-1.3)
[2020-08-25 21:29] LABS: MICROSCOPIC NOT IND
[2020-08-25 21:33] LABS: BAND#(MANUAL) 0.28 x10^3/uL; BANDS%(MANUAL) 2 % (0-7); EOS#(MANUAL) 0.28 x10^3/uL (0.0-0.4); EOS% (MANUAL) 2 % (1-7); LYMPH#(MANUAL) 2.92 x10^3/uL (1-3.4); LYMPHS% (MANUAL) 21 % (22-44); METAMYELOCYTES# (MANUAL) 0.28 x10^3/uL (0-0); METAMYELOCYTES% (MANUAL) 2 % (0-1); MONOS#(MANUAL) 0.97 x10^3/uL (0.3-2.7); MONOS% (MANUAL) 7 % (2-9); MYELOCYTES% (MANUAL) 5 % (0-0); SEG#(MANUAL) 8.48 x10^3/uL (1.8-6.8); SEGS% (MANUAL) 61 % (42-75)
[2020-08-25 21:41] LABS: <PLATELET ESTIMATE> INCREASED; <PLT MORPHOLOGY> NORMAL PLT MORPH; <RBC MORPHOLOGY> NORMAL
[2020-08-25] MEDS ORDERED: MORPHINE SULFATE 4 MG/ML, 1ML IVPush PRN (22:30)
--- NOTE | 2020-08-25 22:36 | NUR ---
PT OUT TO MRI WITH TECH TRANSPRTER, TAKEN VIA GURNEY WITH NO SIGNS OR SYMPTOMS OF ACUTE DISTREES NOTED RESPIRATIONS EVEN AND UNLABORED. PT MEDICATED BEFOREHAND ORDERED WITH MORPHINE IV.
[2020-08-25] MEDS ORDERED: LORazepam 2 MG/ML, 1ML IV STA (23:11)
[2020-08-25] MEDS ORDERED: HYDROmorphone 1 MG/ML, 1ML INJ IV STA (23:11)
[2020-08-25] MEDS ORDERED: HYDROmorphone 1 MG/ML, 1ML INJ ONE (23:16)
[2020-08-25] MEDS ORDERED: LORazepam 2 MG/ML, 1ML ONE (23:17)
--- NOTE | 2020-08-26 01:14 | NUR ---
pt back from mri in bed with no signs or symptoms of acute distress noted respirations even and unlabored
[2020-08-26 01:25] VITALS: BP 125/87
[2020-08-26] MEDS ORDERED: MORPHINE SULFATE 4 MG/ML, 1ML ONE (01:54)
--- NOTE | 2020-08-26 02:02 | NUR ---
pt noted to have pulled his own iv, blood splattered all over floor. pt states "doctor wasnt going to given me any more pain medication so i pulled it out". pt educated that pulling an iv is not good, as he still had one dose left of iv morphine that this rn could have given him if he had not pulled the iv. dressing applied. pt verbalizes readiness to dc.
== END 2020-08-26 02:06 | disposition home or self-care (01) ==
LOC: ED 08-26 00:31
DX: M51.34 Other intervertebral disc degeneration, thoracic region (principal); M54.2 Cervicalgia; M54.5 Low back pain; M54.16 Radiculopathy, lumbar region; I10 Essential (primary) hypertension; R11.2 Nausea with vomiting, unspecified; F17.200 Nicotine dependence, unspecified, uncomplicated; Z90.49 Acquired absence of other specified parts of digestive tract
CPT/HCPCS: 36415; 71045; 72156; 72157; 72158; 80048; 81003; 82040; 83605; 85025; 85651; 87040; 96361; 96374; 96375; 96376; 99285; J1170; J2060; J2270; J7030

== ENCOUNTER 2020-09-11 16:59 | Emergency (ER) | payer MEDICAID ==
[~2020-09-11] VITALS: Ht 167.6 cm; Wt 90.0 kg
--- NOTE | 2020-09-11 17:07 | NUR ---
PT BIB [facility] FROM THE [facility]. PT ENTERED [facility] BECAUSE HE THOUGHT HE WAS GONNA . PT STATES HE HAS BEEN ON A "METH BINGE" FOR 2 DAYS. PT HAS HX OF SCHIZOPHRENIA. PT CHANGED INTO GOWN, MONITORS IN PLACE. CALL LIGHT WITHIN REACH. PT HAS PARANOIA AND REQUESTS NO VISITORS Addendum: 09/11/20 at 1718 by [email or web address] PT BIB [facility] FROM THE [facility]. PT ENTERED [facility] BECAUSE HE THOUGHT "HE WAS GONNA ". PT STATES HE HAS BEEN ON A "METH BINGE" FOR 2 DAYS. PT HAS HX OF SCHIZOPHRENIA. PT CHANGED INTO GOWN, MONITORS IN PLACE. CALL LIGHT WITHIN REACH. PT HAS PARANOIA AND REQUESTS NO VISITORS
[2020-09-11] MEDS ORDERED: LORazepam 1MG TABLET ONE (17:11)
[2020-09-11 17:13] VITALS: BP 138/93
[2020-09-11] MEDS ORDERED: LORazepam 1MG TABLET PO ONE (17:30)
[2020-09-11 17:38] LABS: BASOPHILS % (AUTO) 1 % (0-1); EOSINOPHILS % (AUTO) 1 % (1-7); LYMPHOCYTES % (AUTO) 29 % (22-44); MEAN CORPUSCULAR HEMOGLOBIN 30.7 pg (27.5-34.5); MEAN CORPUSCULAR HGB CONC 32.9 g/dL (33.2-36.2); MEAN PLATELET VOLUME 6.8 fL (7.4-10.4); MONOCYTES % (AUTO) 7 % (2-9); NEUTROPHILS % (AUTO) 62 % (42-75); PLATELET COUNT 394 x10^3/uL (130-400); RED BLOOD COUNT 4.07 x10^6/uL (4.38-5.82)
[2020-09-11 17:39] LABS: MD NO
[2020-09-11 17:43] LABS: ALANINE AMINOTRANSFERASE 59 U/L (12-78); ALBUMIN 3.6 g/dL (3.4-5.0); ANION GAP 12 mmol/L (5-15); CALCIUM 8.6 mg/dL (8.5-10.1); CHLORIDE 107 mmol/L (98-107); CREATININE 0.93 mg/dL (0.7-1.3)
[2020-09-11 17:46] LABS: AMPHETAMINE SCREEN, URINE Positive (Negative); BARBITURATE SCREEN, URINE Negative (Negative); BENZODIAZEPINE SCREEN, URINE Negative (Negative); CANNABINOID SCREEN, URINE Negative (Negative); COCAINE SCREEN, URINE Negative (Negative); METHADONE SCREEN, URINE Negative (Negative); OPIATE SCREEN, URINE Negative (Negative)
[2020-09-11 17:46] LABS: ALKALINE PHOSPHATASE 146 U/L (45-117); BILIRUBIN,TOTAL 0.5 mg/dL (0.2-1.0); CREATINE KINASE, TOTAL 356 U/L (39-308); TOTAL PROTEIN 8.1 g/dL (6.4-8.2); TROPONIN I < 0.015 ng/mL (0.000-0.045)
[2020-09-11 17:47] LABS: SALICYLATE LEVEL < 1.7 mg/dL (2.8-20.0)
[2020-09-11] MEDS ORDERED: ZIPRASIDONE 20 MG INJ IM ONE ×2 (17:51→18:00)
--- NOTE | 2020-09-11 18:18 | NUR ---
PT MEDICATED PER EMAR FOR PERSISTANT RESTLESSNESS/PARANOIA. PT REQUIRED FREQUENT REASSURANCE/REDIRECTION WITH LITTLE EFFECT. PT STATES HE SEES PEOPLE LOOKING THROUGH THE WINDOW, AND QUESTIONS THE IDENTITY OF ANYONE WEARING BLACK. PT KEEPS REMOVING MONITORS, DESPITE FREQUENT EDUCATION FOR PLACEMENT.
--- NOTE | 2020-09-11 18:32 | NUR ---
PT REMOVED MONITORS, AND REFUSED VITALS.
--- NOTE | 2020-09-11 18:33 | NUR ---
Patient given discharge instructions and they have confirmed that they understand the instructions. Patient ambulatory with steady gait.
== END 2020-09-11 18:34 | disposition home or self-care (01) ==
LOC: ED 18:09
DX: R07.89 Other chest pain (principal); F15.159 Other stimulant abuse with stimulant-induced psychotic disorder, unspecified; F41.9 Anxiety disorder, unspecified; Z72.9 Problem related to lifestyle, unspecified; F17.210 Nicotine dependence, cigarettes, uncomplicated; R00.0 Tachycardia, unspecified; I10 Essential (primary) hypertension; Z90.49 Acquired absence of other specified parts of digestive tract; Z91.14 Patient's other noncompliance with medication regimen
CPT/HCPCS: 36415; 71045; 80053; 80299; 80307; 80320; 80329; 82550; 84484; 85025; 93005; 96372; 99285; 99406; J3486; G0480

== ENCOUNTER 2020-09-25 15:59 | Emergency (ER) | payer MEDICAID ==
[~2020-09-25] VITALS: Ht 167.6 cm; Wt 84.1 kg
--- NOTE | 2020-09-25 16:42 | NUR ---
"IM ON A 6 DAY ESTRELLA AND I JUST WENT BACK AT IT AGAIN" PT STATES THAT HE NEEDS HELP TO DETOX. LAST NIGHT SMOKED METH. STATES THAT HIS IS GOING TO SIGN HIM UP FRO A PROGRAM. LAST DRINK THIS MORNING. PT ATTACHED TO MONITORS. TACHY 120'S. OTHER VITALS STABLE. AWAITING ORDERS
--- NOTE | 2020-09-25 16:54 | NUR ---
REPORT GIVEN TO DEVON LOVE.
--- NOTE | 2020-09-25 16:57 | NUR ---
ASSUMED PT CARE FROM IVAN TAO. PT RESTING IN [facility], MONITORING IN PLACE, [place] AT THIS TIME, MARKO.
[2020-09-25] MEDS ORDERED: SODIUM CHLORIDE FLUSH 10ML SYR IVF ONE (17:30)
[2020-09-25] MEDS ORDERED: SODIUM CHLORIDE 0.9% 1,000ML IVBOLUS ONE (17:30)
[2020-09-25] MEDS ORDERED: THIAMINE 100MG TABLET PO ONE (17:30)
[2020-09-25] MEDS ORDERED: MAALOX/HYOSCYAMINE/LIDOCAINE 45 ML BTL PO ONE (17:30)
[2020-09-25] MEDS ORDERED: ONDANSETRON 2MG/ML, 2ML IVPush ONE (17:30)
[2020-09-25 17:31] LABS: BASOPHILS % (AUTO) 1 % (0-1); EOSINOPHILS % (AUTO) 0 % (1-7); LYMPHOCYTES % (AUTO) 32 % (22-44); MEAN CORPUSCULAR HEMOGLOBIN 31.3 pg (27.5-34.5); MEAN CORPUSCULAR HGB CONC 33.6 g/dL (33.2-36.2); MEAN PLATELET VOLUME 7.7 fL (7.4-10.4); MONOCYTES % (AUTO) 10 % (2-9); NEUTROPHILS % (AUTO) 57 % (42-75); PLATELET COUNT 295 x10^3/uL (130-400); RED CELL DISTRIBUTION WIDTH 17.1 % (9.4-14.8)
[2020-09-25] MEDS ORDERED: THIAMINE 100MG TABLET ONE (17:35)
[2020-09-25] MEDS ORDERED: ONDANSETRON 2MG/ML, 2ML ONE (17:35)
[2020-09-25 17:36] LABS: MD NO
[2020-09-25] MEDS ORDERED: MAALOX/HYOSCYAMINE/LIDOCAINE 45 ML BTL ONE (17:36)
[2020-09-25 17:43] LABS: ALANINE AMINOTRANSFERASE 93 U/L (12-78); ANION GAP 9 mmol/L (5-15); CALCIUM 9.9 mg/dL (8.5-10.1); CHLORIDE 106 mmol/L (98-107)
[2020-09-25 17:45] LABS: ALKALINE PHOSPHATASE 146 U/L (45-117); BILIRUBIN,TOTAL 0.4 mg/dL (0.2-1.0); TOTAL PROTEIN 8.7 g/dL (6.4-8.2)
[2020-09-25] MEDS ORDERED: LORazepam 2 MG/ML, 1ML ONE (18:39)
--- NOTE | 2020-09-25 18:44 | NUR ---
BREAK RN: PT AWAKE AND TALKING STATES HE FEELS ANXIOUS. VSS. PT MEDICATED PER MAR.
--- NOTE | 2020-09-25 18:55 | NUR ---
This RN assuming care.
[2020-09-25 19:00] VITALS: BP 138/92
[2020-09-25] MEDS ORDERED: LORazepam 2 MG/ML, 1ML IVPush ONE (19:00)
--- NOTE | 2020-09-25 19:09 | NUR ---
REPORT GIVEN TO IVAN BLACK.
== END 2020-09-25 20:25 | disposition home or self-care (01) ==
LOC: ED 18:07
DX: R00.0 Tachycardia, unspecified (principal); F15.10 Other stimulant abuse, uncomplicated; F41.9 Anxiety disorder, unspecified; R07.89 Other chest pain; R11.2 Nausea with vomiting, unspecified; I10 Essential (primary) hypertension
CPT/HCPCS: 36415; 80053; 80320; 83690; 85025; 93005; 96361; 96374; 96375; 99284; J2060; J2405; J7030; G0480

== ENCOUNTER 2020-10-17 10:11 | Observation (INO) | payer MEDICAID ==
[~2020-10-17] VITALS: Ht 167.6 cm; Wt 86.4 kg
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
--- NOTE | 2020-10-17 10:21 | NUR ---
SUICIDE PRECAUTIONS IN PLACE. ALL BELONGINGS REMOVED AND PLACED IN LOCKER. SITTER OUTSIDE ROOM AT ALL TIMES.
--- NOTE | 2020-10-17 10:49 | NUR ---
ERP WAS IN TO SEEP PT. PT STANDING IN DOORWAY / PACING AROUND ROOM D/T PARANOIA. INSTRUCTED PT TO STAY IN ROOM/GURNEY. WILL MEDICATE FOR ANXIETY.
[2020-10-17] MEDS ORDERED: LORazepam 1MG TABLET ONE (10:54)
[2020-10-17] MEDS ORDERED: LORazepam 1MG TABLET PO ONE (11:00)
[2020-10-17 11:03] LABS: BASOPHILS % (AUTO) 1 % (0-1); EOSINOPHILS % (AUTO) 0 % (1-7); LYMPHOCYTES % (AUTO) 22 % (22-44); MEAN CORPUSCULAR HGB CONC 34.1 g/dL (33.2-36.2); MEAN PLATELET VOLUME 7.8 fL (7.4-10.4); MONOCYTES % (AUTO) 10 % (2-9); NEUTROPHILS % (AUTO) 67 % (42-75); PLATELET COUNT 396 x10^3/uL (130-400); RED BLOOD COUNT 4.82 x10^6/uL (4.38-5.82); RED CELL DISTRIBUTION WIDTH 16.5 % (9.4-14.8)
[2020-10-17 11:13] LABS: MD NO
[2020-10-17 11:14] LABS: CHLORIDE 105 mmol/L (98-107)
--- NOTE | 2020-10-17 11:51 | NUR ---
PSYCH BOILER MAKER AT BS AT THIS TIME.
[2020-10-17 12:00] LABS: ANION GAP 13 mmol/L (5-15); CALCIUM 9.5 mg/dL (8.5-10.1); CREATININE 0.84 mg/dL (0.7-1.3)
--- NOTE | 2020-10-17 12:00 | NUR ---
PT DENIED SI TO SOAP MAKER. REPORTED METH USE THIS AM. PER ERP/SOAP MAKER, WILL MEDICATE WITH GEODON, THEN DISCHARGE PT WHEN PARANOIA SUBSIDES.
[2020-10-17 12:03] LABS: SALICYLATE LEVEL < 1.7 mg/dL (2.8-20.0)
[2020-10-17] MEDS ORDERED: ZIPRASIDONE 20 MG INJ IM ONE ×2 (12:28→12:30)
--- NOTE | 2020-10-17 12:40 | NUR ---
PT CONTINUES TO PACE AROUND ROOM AND PSYCHOSOCIAL REHABILITATION COUNSELOR DOORWAY, PARANOID THAT PEOPLE ARE COMING TO GET HIM. MEDICATED WITH IM KRISSDON PER ORDERS. INSTRUCTED PT TO LIE IN GURNEY. LIGHTS DOWN FOR COMFORT.
[2020-10-17] MEDS ORDERED: POTASSIUM CHLORIDE 20 MEQ PACKET PO ONE (13:30)
--- NOTE | 2020-10-17 13:30 | NUR ---
PT SLEEPING IN GURNEY, BREATHING WNL, NO S/S OF DISTRESS.
[2020-10-17] MEDS ORDERED: POTASSIUM CHLORIDE 20 MEQ PACKET ONE (13:32)
--- NOTE | 2020-10-17 15:00 | NUR ---
PT HAS BEEN RESTING, NO CHANGE IN STATUS. BREATING WNL. SITTER OUTSIDE ROOM.
[2020-10-17 17:48] VITALS: BP 128/88
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
[2020-10-17 19:48] LABS: AMPHETAMINE SCREEN, URINE Positive (Negative); BARBITURATE SCREEN, URINE Negative (Negative); BENZODIAZEPINE SCREEN, URINE Positive (Negative); CANNABINOID SCREEN, URINE Negative (Negative); COCAINE SCREEN, URINE Negative (Negative); METHADONE SCREEN, URINE Negative (Negative); OPIATE SCREEN, URINE Negative (Negative)
--- NOTE | 2020-10-17 20:07 | NUR ---
HUBER RN: PACKET FAXED TO [facility], [facility], [facility], [facility], [facility]
--- NOTE | 2020-10-17 20:26 | NUR ---
TP RN: [facility] ACCEPTING BY DR DAREK AMAYA AT [facility]
--- NOTE | 2020-10-17 20:36 | NUR ---
TP RN: PER [facility], PT NEEDS PO POTASSIUM IN ORDER FOR PT ACCEPTANCE. DR OLIVAREZ NOTIFIED AND VERBAL ORDERS FOR 40 MEQ KDUR RECIEVED. PT MEDICATED PER EMAR
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
[2020-10-17] MEDS ORDERED: POTASSIUM CHLORIDE 20 MEQ TAB.ER.PRT PO ONE (21:00)
--- NOTE | 2020-10-17 21:03 | NUR ---
REPORTED TO ALHAJI AT [facility]. DARRYL TO PICK PT UP AT [phone].
--- NOTE | 2020-10-17 21:53 | NUR ---
PER DARRYL, "WILL GET SOMEONE OUT SOON POSSIBLE" FOR TRANSPORT
== END 2020-10-17 23:04 | disposition home or self-care (01) ==
LOC: ED 12:02 → EDIP 18:29 → MERGE 18:29
PROVIDERS: ADMIT Emergency Medicine; ATTEND Emergency Medicine
DX: F29 Unspecified psychosis not due to a substance or known physiological condition (principal); F33.3 Major depressive disorder, recurrent, severe with psychotic symptoms; F15.20 Other stimulant dependence, uncomplicated; R45.851 Suicidal ideations; F10.10 Alcohol abuse, uncomplicated; I10 Essential (primary) hypertension; Z91.14 Patient's other noncompliance with medication regimen
CPT/HCPCS: 36415; 80048; 80299; 80307; 80320; 80329; 82040; 84443; 85025; 96372; 99284; G0378; J3486; G0480

== ENCOUNTER 2020-10-30 02:36 | Emergency (ER) | payer MEDICAID ==
[~2020-10-30] VITALS: Ht 167.6 cm; Wt 82.0 kg
[2020-10-30] MEDS ORDERED: METHOCARBAMOL 750 MG TABLET PO ONE (03:00)
[2020-10-30] MEDS ORDERED: KETOROLAC 30 MG/1 ML IM ONE (03:00)
[2020-10-30] MEDS ORDERED: METHOCARBAMOL 750 MG TABLET ONE (03:03)
[2020-10-30] MEDS ORDERED: KETOROLAC 30 MG/1 ML ONE (03:03)
[2020-10-30 03:17] VITALS: BP 170/87
== END 2020-10-30 03:43 | disposition home or self-care (01) ==
LOC: ED 03:36
DX: M25.512 Pain in left shoulder (principal); F17.210 Nicotine dependence, cigarettes, uncomplicated; R00.0 Tachycardia, unspecified; I10 Essential (primary) hypertension; F15.10 Other stimulant abuse, uncomplicated; Z90.49 Acquired absence of other specified parts of digestive tract
CPT/HCPCS: 93005; 96372; 99283; 99406; J1885

== ENCOUNTER 2020-12-17 02:26 | Observation (INO) | payer MEDICAID ==
[~2020-12-17] VITALS: Ht 167.6 cm; Wt 88.9 kg
[~2020-12-17 02:26] MED LIST changes: +OLAN10TA69 PO; -OLAN10TA9 PO
--- NOTE | 2020-12-17 03:41 | NUR ---
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
[2020-12-17] MEDS ORDERED: LORazepam 1MG TABLET PO ONE (04:00)
[2020-12-17] MEDS ORDERED: OLANZAPINE 10 MG INJ IM ONE ×2 (04:00→04:45)
[2020-12-17 04:12] LABS: BASOPHILS % (AUTO) 1 % (0-1); EOSINOPHILS % (AUTO) 2 % (1-7); LYMPHOCYTES % (AUTO) 25 % (22-44); MEAN CORPUSCULAR HEMOGLOBIN 31.2 pg (27.5-34.5); MEAN CORPUSCULAR HGB CONC 34.3 g/dL (33.2-36.2); MEAN PLATELET VOLUME 7.6 fL (7.4-10.4); MONOCYTES % (AUTO) 8 % (2-9); NEUTROPHILS % (AUTO) 63 % (42-75); PLATELET COUNT 457 x10^3/uL (130-400); RED BLOOD COUNT 4.92 x10^6/uL (4.38-5.82)
[2020-12-17 04:14] LABS: ALBUMIN 3.9 g/dL (3.4-5.0); ANION GAP 6 mmol/L (5-15); CALCIUM 9.2 mg/dL (8.5-10.1); CHLORIDE 104 mmol/L (98-107); SALICYLATE LEVEL < 1.7 mg/dL (2.8-20.0)
[2020-12-17 04:17] LABS: ALANINE AMINOTRANSFERASE 53 U/L (12-78); ALKALINE PHOSPHATASE 115 U/L (45-117); BILIRUBIN,TOTAL 0.4 mg/dL (0.2-1.0); CREATININE 0.97 mg/dL (0.7-1.3)
[2020-12-17] MEDS ORDERED: LORazepam 1MG TABLET ONE (04:45)
[2020-12-17 05:00] LABS: AMPHETAMINE SCREEN, URINE Positive (Negative); BARBITURATE SCREEN, URINE Negative (Negative); BENZODIAZEPINE SCREEN, URINE Positive (Negative); CANNABINOID SCREEN, URINE Negative (Negative); COCAINE SCREEN, URINE Negative (Negative); METHADONE SCREEN, URINE Negative (Negative); OPIATE SCREEN, URINE Negative (Negative)
--- NOTE | 2020-12-17 05:06 | NUR ---
PT SITTING UP IN BED, PT A/OX4, PT PARANOID AND ANXIOUS, PT ANXIOUS ABOUT HIS PHONE DYING, PT WANTS HIS PHONE TO BE CHARGED BUT THIS RN STATED THAT THERE ARE NO CELL PHONE CHARGERS AVAILABLE AT THE MOMENT, THIS RN ABLE TO TALK TO PT AND GET HIM TO TRY AND RELAX AND LET PO MEDS AND IM MEDS KICK IN TO HELP HIM RELAX FURTHER, TELEPSYCH MACHINE IN ROOM
--- NOTE | 2020-12-17 07:00 | NUR ---
BEDSIDE REPORT RECEIVED FROM BEV LOVE
--- NOTE | 2020-12-17 07:05 | NUR ---
DR LORENZ CALLED AND THIS RN GAVE MD SBAR ON PTS CONDITION, TELEPSYCH CURRENTLY ONGOING
[2020-12-17 07:45] VITALS: BP 146/98
--- NOTE | 2020-12-17 08:19 | NUR ---
Per Dr. Swartz, pt is to be placed on legal hold. charge nurse aware and plan to move pt to secure room, pt belonging bagged and secure.
--- NOTE | 2020-12-17 09:18 | NUR ---
report given to Angeline LOVE
--- NOTE | 2020-12-17 10:05 | NUR ---
PT STANDING IN WINDOW WITH BLANKET WRAPPED AROUND HIM. PT UPSET THAT HE IS ON A HOLD. PT STATED HE IS NOT SI, AND SHOULDN'T BE ON A LEGAL HOLD, THAT HE HAS SOMEWHERE HE NEEDS TO BE. SITTER AT DOOR FOR FREQUENT OBS. PT INFORMED THAT PSYCH SALES OPERATIONS LEAD WILL BE IN TO TALK TO HIM ABOUT THE LEGAL HOLD. TELEPSYCH REPORT PLACED ON CHART.
--- NOTE | 2020-12-17 11:04 | NUR ---
PSYCH GWOT IA/ILO INTELLIGENCE SUPPORT IN SEEING PT AT THIS TIME.
--- NOTE | 2020-12-17 11:40 | NUR ---
PT IN HALLWAY USING PHONE TO CALL GIRLFRIEND FOR RIDE HOME. PT LEGAL HOLD TO BE DECERTIFIED PER PSYCH TELEPHONE TECHNICIAN
== END 2020-12-17 13:09 | disposition home or self-care (01) ==
LOC: ED 03:00 → INTOOBSV 04:31 → EDIP 04:31 → UNDOADMIN 04:34 → EDIP 04:34 → UNDODISIN 13:09
PROVIDERS: ADMIT Emergency Medicine; ATTEND Emergency Medicine
DX: F29 Unspecified psychosis not due to a substance or known physiological condition (principal); R45.851 Suicidal ideations; F41.8 Other specified anxiety disorders; I10 Essential (primary) hypertension; F20.9 Schizophrenia, unspecified; F15.20 Other stimulant dependence, uncomplicated; F10.20 Alcohol dependence, uncomplicated; F17.210 Nicotine dependence, cigarettes, uncomplicated; Z79.899 Other long term (current) drug therapy; Z91.5 Personal history of self-harm
CPT/HCPCS: 36415; 80053; 80299; 80307; 80320; 80329; 85025; 96372; 99284; G0378; 99285; G0480

== ENCOUNTER 2021-01-02 01:27 | Emergency (ER) | payer MEDICAID ==
[~2021-01-02] VITALS: Ht 167.6 cm; Wt 88.0 kg
--- NOTE | 2021-01-02 02:02 | NUR ---
BIB BY [facility] FROM [facility] FOR PARANOIA DENIES ILLICTIS. HOWEVER-PILATES COORDINATOR SUSPICIOUS PLACED ON SAFETY EQUIPMENT TESTER FOR NEWLY REPORTED CHEST PAIN -ERP MADE AWARE ECG OBTAINED
[2021-01-02] MEDS ORDERED: SODIUM CHLORIDE 0.9% 1,000ML IVBOLUS ONE ×2 (02:30→04:30)
--- NOTE | 2021-01-02 02:35 | NUR ---
Patient is resting comfortably in bed. Bed in lowest, rails engaged, call light on lap. Vital Signs within normal limits. WCTM. PT APPEARS DROWSY AND SLURRING WORDS WHEN SPEAKING.
[2021-01-02 02:38] LABS: BASOPHILS % (AUTO) 1 % (0-1); EOSINOPHILS % (AUTO) 2 % (1-7); LYMPHOCYTES % (AUTO) 30 % (22-44); MEAN CORPUSCULAR HEMOGLOBIN 31.9 pg (27.5-34.5); MEAN CORPUSCULAR HGB CONC 34.6 g/dL (33.2-36.2); MEAN PLATELET VOLUME 7.9 fL (7.4-10.4); MONOCYTES % (AUTO) 15 % (2-9); NEUTROPHILS % (AUTO) 52 % (42-75); PLATELET COUNT 307 x10^3/uL (130-400); RED BLOOD COUNT 4.35 x10^6/uL (4.38-5.82); RED CELL DISTRIBUTION WIDTH 15.1 % (9.4-14.8)
[2021-01-02 02:46] LABS: ALBUMIN 3.8 g/dL (3.4-5.0); ANION GAP 7 mmol/L (5-15); CALCIUM 8.8 mg/dL (8.5-10.1); CHLORIDE 101 mmol/L (98-107)
[2021-01-02 02:47] LABS: SALICYLATE LEVEL < 1.7 mg/dL (2.8-20.0)
[2021-01-02 02:49] LABS: ALANINE AMINOTRANSFERASE 98 U/L (12-78); ALKALINE PHOSPHATASE 114 U/L (45-117); BILIRUBIN,TOTAL 0.5 mg/dL (0.2-1.0)
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
[2021-01-02 06:35] VITALS: BP 116/52
--- NOTE | 2021-01-02 06:52 | NUR ---
GAVE REPORT TO QUINTEN LOVE. TRANSFER OF CARE.
--- NOTE | 2021-01-02 07:05 | NUR ---
PT REC'VD DISCHARGE PAPERWORK AND EDUCATION. PT HAD NO FURTHER QUESTIONS.
[2021-01-02 07:38] LABS: AMPHETAMINE SCREEN, URINE Negative (Negative); BARBITURATE SCREEN, URINE Negative (Negative); BENZODIAZEPINE SCREEN, URINE Positive (Negative); CANNABINOID SCREEN, URINE Negative (Negative); COCAINE SCREEN, URINE Negative (Negative); METHADONE SCREEN, URINE Negative (Negative); OPIATE SCREEN, URINE Negative (Negative)
== END 2021-01-02 08:25 | disposition home or self-care (01) ==
LOC: ED 02:03
DX: F11.10 Opioid abuse, uncomplicated (principal); R07.89 Other chest pain; I10 Essential (primary) hypertension; Z87.891 Personal history of nicotine dependence
CPT/HCPCS: 36415; 80053; 80299; 80307; 80320; 85025; 93005; 96360; 99285; J7030; 80329; G0480